=== PATIENT | female | born 1990 | race Caucasian/White ===

== ENCOUNTER 2020-09-07 08:34 | Emergency (ER) | payer MEDICAID, SELFPAY ==
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
[2020-09-07 08:39] VITALS: BP 114/72; PULSE 80; RESP 14; TEMP 36.6; O2SAT 100
== END 2020-09-07 09:29 | disposition home or self-care (01) ==
LOC: ER 09:40
PROVIDERS: Emergency Provider Physician Assistant; PCP Nurse Practitioner Family
DX: S63.591A Other specified sprain of right wrist, initial encounter (principal); S93.491A Sprain of other ligament of right ankle, initial encounter; S43.492A Other sprain of left shoulder joint, initial encounter; V89.2XXA Person injured in unspecified motor-vehicle accident, traffic, initial encounter
CPT/HCPCS: 99282

== ENCOUNTER 2023-08-31 09:14 | Emergency (ER) | payer MEDICAID, SELFPAY ==
[2023-08-31 09:17] VITALS: BP 129/85; PULSE 62; RESP 14; TEMP 36.8; O2SAT 98
--- NOTE | 2023-08-31 09:28 | W.ED.GENAD ---
Discharge Plan Disposition Patient Disposition: Home Condition: Stable Discharge Details Clinical Impression: Abscess of axilla, left Primary Care Provider: Jerica Lomax ED Provider: Emily Rios Home Meds and New Rx's Prescriptions: New cephalexin 500 mg tablet 500 mg PO BID 7 Days Qty: 14 0RF Continued methylphenidate HCl 20 mg tablet 20 mg PO DAILY Patient Comments: TAKE 1 TABLET BY MOUTH THREE TIMES DAILY DIRECTED lamotrigine 100 mg tablet 100 mg PO DAILY Patient Comments: TAKE 1 TABLET BY MOUTH DAILY quetiapine 50 mg tablet 50 mg PO QHS Patient Comments: TAKE 1 TABLET BY MOUTH EVERY NIGHT AT BEDTIME Discharge Instructions Instructions: Abscess (ED) Additional Instructions: Take the antibiotics twice daily with yogurt or probiotic as directed. Make sure you take all the antibiotics. Do not leave the packing in longer than 3 days. Follow up with primary care provider in 3-5 days. Return to ED sooner if any worsening or concerns. Please take Tylenol or Ibuprofen with food every 4-6 hours as needed for pain and swelling. Continue with warm compresses, no soaking. Keep clean and dry when bathing. Referrals: Danae Garrison DO [OSTEOPATHIC DOCTOR] - 1 week HPI General Mode of arrival: ambulatory. Date/Time Provider Initiated Documentation: 08/31/23 09:17. Limitations to Documentation: no limitations. Information obtained by: patient, RN notes reviewed and old records reviewed. HPI Narrative: Patient has a approximately 3cm x3cm abscess to left axillae. She has been applying warm compresses. Does have a history of Hidraddenitis Adenitis. Has never had a I& D or seen a surgeon. Denies any fever, chills or any other associated symptoms. Related Data Home Medications Medication Instructions Recorded Confirmed methylphenidate HCl 20 mg tablet 20 mg PO DAILY 09/07/20 08/31/23 cephalexin 500 mg tablet 500 mg PO BID 7 days #14 tabs 08/31/23 lamotrigine 100 mg tablet 100 mg PO DAILY 08/31/23 08/31/23 quetiapine 50 mg tablet 50 mg PO QHS 08/31/23 08/31/23 Previous Rx's Medication Instructions Recorded cephalexin 500 mg tablet 500 mg PO BID 7 days #14 tabs 08/31/23 Allergies Allergy/AdvReac Type Severity Reaction Status Date / Time clindamycin Allergy Severe Other (See Unverified 08/31/23 09:22 Comment) General Stated Complaint: Cellulitis ISAAC: 4 Review of Systems All systems reviewed & are unremarkable except as noted in HPI and below Integumentary/Breasts Skin/Breast: Reports erythema, Reports skin pain and Reports skin swelling Exam Narrative Exam Narrative: Constitutional: Alert and oriented x3. Appears stated age. Normal body habitus. Head: Normocephalic, no trauma. Chest: RRR, Normal S1, S2, distal pulses intact. Resp: Lungs clear to auscultation bilaterally, no wheezes, rales, or rhonchi. Abdomen: Soft, non-distended, Normoactive bowel sounds all 4 quads. Musculoskeletal: Normal gait, 5/5 strength to all four extremities. Skin: No suspicious rashes or lesions. Capillary refill less than 2 sec. see diagram below. Hematologic/Lymphatic: No ecchymosis, no lymphadenopathy. Chest Chest/axillae images: 1. Approximately 3cmx 3cm red abscess noted. Course Vital Signs Vital signs: Vital Signs Temperature 36.8 C 08/31/23 09:17 Pulse 62 08/31/23 09:17 Respiratory Rate 14 08/31/23 09:17 Blood Pressure 129/85 08/31/23 09:17 Pulse Oximetry 98 08/31/23 09:17 Temperature 36.8 C 08/31/23 09:17 Temperature Source Skin 08/31/23 09:17 Pulse 62 08/31/23 09:17 Respiratory Rate 14 08/31/23 09:17 Blood Pressure 129/85 08/31/23 09:17 Blood Pressure Position Sitting 08/31/23 09:17 Pulse Oximetry 98 08/31/23 09:17 Oxygen Delivery Method Room Air 08/31/23 09:17 Oxygen Flow Rate 0 08/31/23 09:17 Pain Level 3 08/31/23 09:17 Procedures Abscess I/D Site: Upper Extremity (Left axillae) Side (if applicable): Left Sedation/analgesia: None Local Anesthetic: Lidocaine 1% and With Epi Amount of anesthesia used (mL): 2 Technique: Incised with #11 Blade Amount of fluid expressed (mL): 5 Irrigation: No Packing used?: Iodoform Complications: Other (None) Medical Decision Making 33 year old female Patient has a approximately 3cm x3cm abscess to left axillae. She has been applying warm compresses. Does have a history of Hidraddenitis Adenitis. Has never had a I& D or seen a surgeon. Denies any fever, chills or any other associated symptoms. See procedure note. Area incised with 11 blade, small amount of purulent drainage expressed. Small amount of packing placed to the area. Discussed home care will give patient antibiotics and follow-up care. This text was generated using Picwingation system, please disregard any oddities of phrase or misspellings. Quality:SDOH Health Related Social Needs: No Data to Display [facility] All Active Problems (Updated 08/31/23 @ 10:44 by Emily Rios NP) Abscess of axilla, left (Acute) Left wrist sprain (Acute) Right ankle sprain (Acute) Sprain of left shoulder (Acute) Medical History Narcotic abuse in remission Surgical History History of bilateral tubal ligation Social History Smoking/Tobacco Use Status: Current every day Tobacco Type: cigarettes Smoking risk assessment performed?: Yes Alcohol Intake: never Drug use: Never Substance use type: does not use Do you feel safe at home: Yes Do you feel safe in your relationship?: Yes
[2023-08-31] MEDS: Lidocaine/Epinephri/Tetracaine Topical Gel 3 ML TP (09:40)
[2023-08-31] MEDS: Cephalexin 500 MG CAP PO (09:40)
[2023-08-31 09:45] VITALS: BP 129/85; PULSE 62; RESP 14; TEMP 36.8; O2SAT 98
== END 2023-08-31 10:59 | disposition home or self-care (01) ==
PROVIDERS: Emergency Provider Registered Nurse Emergency; PCP Nurse Practitioner Family
DX: L02.412 Cutaneous abscess of left axilla
CPT/HCPCS: 10060; 99282; 99283

== ENCOUNTER 2023-12-30 08:03 | Emergency (ER) | payer MEDICAID, SELFPAY ==
[2023-12-30 08:06] VITALS: BP 101/77; PULSE 76; RESP 18; TEMP 36.4; O2SAT 98
--- NOTE | 2023-12-30 08:18 | W.ED.GENAD ---
Discharge Plan Disposition Patient Disposition: Home Condition: Stable Discharge Details Clinical Impression: Hidradenitis suppurativa of multiple sites Primary Care Provider: Jerica Lomax ED Provider: Emily Rios Home Meds and New Rx's Prescriptions: New doxycycline hyclate 100 mg capsule 100 mg PO BID 10 Days Qty: 20 0RF Rx Instructions: Take one tablet by mouth twice daily mupirocin 2 % ointment 1 applic topical TID 7 Days Qty: 15 0RF Rx Instructions: Apply to affected area up to 3 times daily as directed Continued methylphenidate HCl 20 mg tablet 20 mg PO DAILY Patient Comments: TAKE 1 TABLET BY MOUTH THREE TIMES DAILY DIRECTED lamotrigine 100 mg tablet 100 mg PO DAILY Patient Comments: TAKE 1 TABLET BY MOUTH DAILY quetiapine 50 mg tablet 50 mg PO QHS Patient Comments: TAKE 1 TABLET BY MOUTH EVERY NIGHT AT BEDTIME lamotrigine 25 mg tablet 25 mg PO DAILY Patient Comments: TAKE ONE TABLET BY MOUTH EVERY DAY, TAKE WITH 100MG TABLET EACH EVENING quetiapine 25 mg tablet 25 mg PO DAILY Patient Comments: TAKE ONE TABLET BY MOUTH EVERY NIGHT AT BEDTIME , TAKE WITH 50MG TABLET AT NIGHT Discharge Instructions Instructions: Hidradenitis suppurativa Additional Instructions: Please take the antibiotics as directed. Take the antibiotics with yogurt or a probiotic. Apply topical ointment up to 3 times daily as needed. Apply warm compresses. Please follow up with general surgery for further treatment and options to discuss the Hidradenitis. Follow up with primary care provider in 3-5 days. Return to ED sooner if any worsening or concerns. Referrals: Jerica Lomax, YARA [Primary Care Provider] - Danae Garrison DO [OSTEOPATHIC DOCTOR] - 2 weeks Discharge Data Discharge Date/Time-TO BE ENTERED AT DEPARTURE: 12/30/23 08:35 HPI General Mode of arrival: ambulatory. Date/Time Provider Initiated Documentation: 12/30/23 08:09. Limitations to Documentation: no limitations. Information obtained by: patient, RN notes reviewed and old records reviewed. HPI Narrative: 33-year-old female with past medical history of hidradenitis presents to the ER with a chief complaint of multiple cysts to multiple areas over the last few days including left inner thigh, right upper back, left buttock and small stye to her right lower eyelid. She reports that she gets this frequently and as needed I&D's and antibiotics in the past. No area of fluctuance noticed there are multiple areas that are red and raised with induration. She denies any fever chills body aches or any other associated symptoms. Related Data Home Medications ?Medication ?Instructions ?Recorded ?Confirmed methylphenidate HCl 20 mg tablet 20 mg PO DAILY 09/07/20 12/30/23 lamotrigine 100 mg tablet 100 mg PO DAILY 08/31/23 12/30/23 quetiapine 50 mg tablet 50 mg PO QHS 08/31/23 12/30/23 doxycycline hyclate 100 mg capsule 100 mg PO BID Hidradenitis 10 days 12/30/23 #20 caps lamotrigine 25 mg tablet 25 mg PO DAILY 12/30/23 12/30/23 mupirocin 2 % topical ointment 1 applic topical TID 7 days #15 12/30/23 grams quetiapine 25 mg tablet 25 mg PO DAILY 12/30/23 12/30/23 Previous Rx's ?Medication ?Instructions ?Recorded doxycycline hyclate 100 mg capsule 100 mg PO BID Hidradenitis 10 days 12/30/23 #20 caps mupirocin 2 % topical ointment 1 applic topical TID 7 days #15 12/30/23 grams Allergies Allergy/AdvReac Type Severity Reaction Status Date / Time clindamycin Allergy Severe Other (See Unverified 12/30/23 08:07 Comment) gabapentin Allergy Swelling/Ed Verified 12/30/23 08:07 shoaib General Stated Complaint: Cellulitis ISAAC: 4 Review of Systems All systems reviewed & are unremarkable except as noted in HPI and below Integumentary/Breasts Skin/Breast: Reports as per HPI, Reports skin pain, Reports skin swelling and Reports sores Exam Narrative Exam Narrative: Constitutional: Alert and oriented x3. Appears stated age. Normal body habitus. Head: Normocephalic, no trauma. Chest: RRR, Normal S1, S2, distal pulses intact. Resp: Lungs clear to auscultation bilaterally, no wheezes, rales, or rhonchi. Abdomen: Soft, non-distended, Normoactive bowel sounds all 4 quads. Musculoskeletal: Normal gait, Moves all 4 extremities without difficulty. Skin:Multiple leasions, and small abscesses without fluctuance. Capillary refill less than 2 sec. Neurologic: Cranial nerves II-XII intact. Alert and oriented x 3. Motor: No deficits noted. Sensory: Intact bilaterally all 4 extremities. Hematologic/Lymphatic: No ecchymosis, no lymphadenopathy. Course Vital Signs Vital signs: Vital Signs Temperature 36.4 C 12/30/23 08:06 Pulse 76 12/30/23 08:06 Respiratory Rate 18 12/30/23 08:06 Blood Pressure 101/77 12/30/23 08:06 Pulse Oximetry 98 12/30/23 08:06 Temperature 36.4 C 12/30/23 08:06 Temperature Source Skin 12/30/23 08:06 Pulse 76 12/30/23 08:06 Respiratory Rate 18 12/30/23 08:06 Respiratory Effort Normal, Non-Labored 12/30/23 08:11 Blood Pressure 101/77 12/30/23 08:06 Blood Pressure Position Sitting 12/30/23 08:06 Pulse Oximetry 98 12/30/23 08:06 Oxygen Delivery Method Room Air 12/30/23 08:06 Oxygen Flow Rate 0 12/30/23 08:06 Pain Level 10 12/30/23 08:06 Medical Decision Making 33-year-old female with past medical history of hidradenitis presents to the ER with a chief complaint of multiple cysts to multiple areas over the last few days including left inner thigh, right upper back, left buttock and small stye to her right lower eyelid. She reports that she gets this frequently and as needed I&D's and antibiotics in the past. No area of fluctuance noticed there are multiple areas that are red and raised with induration. She denies any fever chills body aches or any other associated symptoms. At this time no areas appear ready for I&D will refer her to general surgery for follow-up given doxycycline and mupirocin cream. This text was generated using [employer] dictation system, please disregard any oddities of phrase or misspellings. Medical Records Medical records reviewed: Yes I reviewed the patient's medical records. Quality:[facility] Health Related Social Needs: No Data to Display PFSH All Active Problems (Updated 12/30/23 @ 08:23 by Emily Rios NP) Hidradenitis suppurativa of multiple sites (Acute) Left wrist sprain (Acute) Right ankle sprain (Acute) Sprain of left shoulder (Acute) Medical History Narcotic abuse in remission Surgical History History of bilateral tubal ligation Social History Smoking/Tobacco Use Status: Current every day Tobacco Type: cigarettes Smoking risk assessment performed?: Yes Alcohol Intake: never Drug use: Never Substance use type: does not use Do you feel safe at home: Yes Do you feel safe in your relationship?: Yes
[2023-12-30] MEDS: Doxycycline Hyclate 100 MG CAP PO (08:23)
== END 2023-12-30 08:35 | disposition home or self-care (01) ==
PROVIDERS: Emergency Provider Registered Nurse Emergency; PCP Nurse Practitioner Family
DX: L73.2 Hidradenitis suppurativa (principal)
CPT/HCPCS: 99283; 99282

== ENCOUNTER 2024-02-07 10:10 | Emergency (ER) | payer MEDICAID, SELFPAY ==
[2024-02-07 10:09] VITALS: BP 121/63; PULSE 89; RESP 14; O2SAT 99
--- NOTE | 2024-02-07 10:15 | DI.RAD_ITS ---
Exam(s) XR FOOT RT COMPLETE EXAM: XR FOOT RT COMPLETE CLINICAL HISTORY: stepped on glass R sole last night. TECHNIQUE: 2D digital imaging was performed. Three views. COMPARISON: No exams were available for comparison FINDINGS: BONES: No acute fracture is present. No bony destructive lesion is seen. Accessory. JOINTS: No dislocation present. SOFT TISSUE: No foreign body. IMPRESSION: No evidence of foreign body. DATA REPOSITORY: RADIATION DOSE DELIVERED:
--- NOTE | 2024-02-07 10:18 | ED.GENADUL_ITS ---
Discharge Plan Disposition Patient Disposition: Home Condition: Stable Discharge Details Clinical Impression: Puncture wound of right foot Primary Care Provider: Jerica Lomax ED Provider: Rizwan Phan Home Meds and New Rx's Prescriptions: New cephalexin 500 mg capsule 500 mg PO QID 5 Days Qty: 20 0RF Continued methylphenidate HCl 20 mg tablet 20 mg PO DAILY Patient Comments: TAKE 1 TABLET BY MOUTH THREE TIMES DAILY DIRECTED lamotrigine 100 mg tablet 100 mg PO DAILY Patient Comments: TAKE 1 TABLET BY MOUTH DAILY quetiapine 50 mg tablet 50 mg PO QHS Patient Comments: TAKE 1 TABLET BY MOUTH EVERY NIGHT AT BEDTIME lamotrigine 25 mg tablet 25 mg PO DAILY Patient Comments: TAKE ONE TABLET BY MOUTH EVERY DAY, TAKE WITH 100MG TABLET EACH EVENING quetiapine 25 mg tablet 25 mg PO DAILY Patient Comments: TAKE ONE TABLET BY MOUTH EVERY NIGHT AT BEDTIME , TAKE WITH 50MG TABLET AT NIGHT methadone [Methadose] 10 mg/mL concentrate 170 mg PO DAILY Discharge Instructions Instructions: Cephalexin, Mupirocin, Wound Care ED Additional Instructions: You were seen in the emergency department for the superficial puncture wound of your right foot on some glass last night, there is not a suturable wound present, we did soak the wound in dilute Betadine and saline for 30 minutes and aggressively cleaned the area and applied a topical mupirocin bandage to the area, you need to apply this antibiotic 2 times per day, ideally please change your dressings 2 times per day. Please use therapeutic dosing of Tylenol (acetamenophen) & Advil (ibuprofen) in an alternating fashion as follows: Take 1000mg of Tylenol every 6 hours without missing doses- that is 4 times per day. [place] in between the Tylenol dosings, take 400-600mg of Advil also on a 6 hour schedule, that is also 4 times per day. The daily maximum dosing of Tylenol is 4000mg, and the daily maximum dosing of Advil is 2400mg. This is safe to do for weeks. Please note that some common cold medications & prescription pain medications may contain acetamenophen and you need to read OTC drug labels and factor that in to maximum daily dosings. Please take the oral antibiotic cephalexin 4 times per day, we sent you home with 2 tablets to get you through the rest of today, continue the prescription sent to [facility] in [place] tomorrow morning. You may have nicked a superficial nerve that is causing your mild numbness but you have some movement of your foot, please follow-up with orthopedics if this is not improving, please return to the emergency department at once for worsening mobility status, red streaking up the leg, purulent drainage from the wound, you need to keep this wound very clean. Referrals: [facility] [Provider Group] Jerica Lomax NP [Primary Care Provider] - Discharge Data Discharge Date/Time-TO BE ENTERED AT DEPARTURE: 02/07/24 12:11 HPI General Date/Time Provider Initiated Documentation: 02/07/24 10:17 . HPI Narrative: 33 year-old female presents to ED today by EMS with her three children with a chief complaint of R foot laceration on sole of foot- stepped on broken glass while doing the dishes last night, states it bled all night. Quality described as painful to walk on-states having some numbness and difficulty moving her foot, no radiation to inability to ambulate, active bleeding, foreign body sensation. Severity is described as moderate. Palliating factors include simple bandage applied by EMS. Provoking factors include nothing specific. Events leading up to the incident/Associated Symptoms: Patient requesting methadone dose as she will not make it to [facility] clinic today. Patient not anticoagulated. Related Data Home Medications ?Medication ?Instructions ?Recorded ?Confirmed methylphenidate HCl 20 mg tablet 20 mg PO DAILY 09/07/20 02/07/24 lamotrigine 100 mg tablet 100 mg PO DAILY 08/31/23 02/07/24 quetiapine 50 mg tablet 50 mg PO QHS 08/31/23 02/07/24 lamotrigine 25 mg tablet 25 mg PO DAILY 12/30/23 02/07/24 quetiapine 25 mg tablet 25 mg PO DAILY 12/30/23 02/07/24 cephalexin 500 mg capsule 500 mg PO QID 5 days #20 caps 02/07/24 methadone 10 mg/mL oral 170 mg PO DAILY 02/07/24 02/07/24 concentrate (Methadose) Previous Rx's ?Medication ?Instructions ?Recorded cephalexin 500 mg capsule 500 mg PO QID 5 days #20 caps 02/07/24 Allergies Allergy/AdvReac Type Severity Reaction Status Date / Time clindamycin Allergy Severe Other (See Verified 02/07/24 10:13 Comment) gabapentin Allergy Swelling/Ed Verified 02/07/24 10:13 shoaib General Stated Complaint: Laceration ISAAC: 4 Review of Systems All systems reviewed & are unremarkable except as noted in HPI and below Exam Narrative Exam Narrative: GENERAL APPEARANCE: Well-nourished, non-toxic, awake and alert, atraumatic, no acute distress. SKIN: Warm, pink, dry, intact, without rashes/lesions/ulcerations. HEAD: Normocephalic, atraumatic, normal hair distribution for gender/age. EYES: Normal conjunctiva, no exudates on lids/lashes. ENT: Nares patent, no circumoral cyanosis, no facial swelling NECK: Supple, trachea midline, painless cervical ROM. LUNGS/CHEST: Lungs CTA bilaterally, non-labored respirations, normal A/P diameter, symmetrical expansion, no chest wall deformity HEART (CV/PV): Regular rate and rhythm without murmur, no peripheral edema, no JVD. ABDOMEN: Soft, non-distended, no guarding. MSK: Normal ROM, no swelling/deformity to bilateral UEs or LEs, moving all extremities without weakness, no cyanosis, spine midline without tenderness, normal curvature. R FOOT: 0.75 cm laceration/puncture wound in the mid sole of the right foot, intermittently participatory in dorsi/plantarflexion, states numbness to distal foot but brisk capillary refill present in all toes, right dorsalis pedis pulse 2+, able to ambulate without foot drop, consider possible superficial nerve injury from laceration but do not suspect tendon rupture plantar fascia at this time NEURO: Mental Status AAOx4 - alert to person, place, time, events No facial droop, no forehead involvement. Motor: No focal weakness - strength 5/5 in bilateral UEs and LEs, proximal and distal, symmetric. Sensory: sensation intact to light touch globally. Gait antalgic. PSYCH: euthymic, cooperative, pleasant, appropriate speech Course Vital Signs Vital signs: Vital Signs Pulse 89 02/07/24 10:09 Respiratory Rate 14 02/07/24 10:09 Blood Pressure 121/63 02/07/24 10:09 Pulse Oximetry 99 02/07/24 10:09 Pulse 89 02/07/24 10:09 Respiratory Rate 14 02/07/24 10:09 Blood Pressure 121/63 02/07/24 10:09 Pulse Oximetry 99 02/07/24 10:09 Oxygen Delivery Method Room Air 02/07/24 10:09 Oxygen Flow Rate 0 02/07/24 10:09 Pain Level 0 02/07/24 10:09 Medical Decision Making This dictation utilizes [id number] dictation software and may contain unedited grammatical errors. 33 year-old female presents to ED today by EMS with her three children with a chief complaint of R foot laceration on sole of foot, R-foot dominant- stepped on broken glass while doing the dishes last night, states it bled all night. Quality described as painful to walk on-states having some numbness and difficulty moving her foot, no radiation to inability to ambulate, active bleeding, foreign body sensation. Severity is described as moderate. Palliating factors include simple bandage applied by EMS. Provoking factors include nothing specific. Events leading up to the incident/Associated Symptoms: Patient requesting methadone dose as she will not make it to [facility] clinic today. Patients' medical history: Narcotic abuse in remission, history of tubal ligation. Family and social history: Lives at home with 3 young children, denies illicit drug use or EtOH intake. Pertinent exam findings / vital signs include 0.75 cm laceration/puncture wound in the mid sole of the right foot, intermittently participatory in dorsi/plantarflexion, states numbness to distal foot but brisk capillary refill present in all toes, right dorsalis pedis pulse 2+, able to ambulate without foot drop, consider possible superficial nerve injury from laceration but do not suspect tendon rupture plantar fascia at this time, patient's feet are incr edibly dirty, caked in black dirt as if there have been no issues present for quite some time. Differential / pathologies of concern include puncture wound/laceration, retained foreign body less likely, not arterial laceration, possible superficial nerve injury, possible tendon injury though unlikely with superficiality of patient's laceration. Diagnostic studies of: -XR R foot-no acute fracture or retained foreign body seen. Interventions of: -Extensive cleaning after 30 minutes soak in saline and dilute Betadine, no foreign body visualized, no active bleeding, simple bandages, not in window for suturing or necessary, updated tetanus, started on Keflex ED Course/Assessment/Plan: 33-year-old female presents with the right puncture wound from broken glass last night in her home, her feet appear incredibly dirty and underwent extensive cleaning, there is no visualized glass and none seen on x-ray as well, patient endorses some superficial numbness to the dorsal toes of the right foot I do not suspect this is related to her laceration, she is able to pull against resistance with her big toe and dorsiflexion, do not suspect plantar fascia rupture or disruption, I started her on Keflex due to the contaminated nature of the wound after extensive cleaning and she was bandaged with simple bandages, provided crutches to go after she requested them, I stressed strict return crite jona for any signs of infection, follow-up with orthopedics for any persistent range of motion or sensory deficits from this puncture. Findings not consistent with neurovascular compromise, fracture, retained foreign body. Disposition of puncture wound of right foot. Patient verbalized understanding of the plan and return to ED criteria and engaged in shared decision making. Medical Records Medical records reviewed: Yes I reviewed the patient's medical records. Imaging Data Radiologic Study: Attestation: I personally reviewed and interpreted this imaging study as follows: Imaging: X-Ray Radiologist's impression: EXAM: XR FOOT RT COMPLETE CLINICAL HISTORY: stepped on glass R sole last night. TECHNIQUE: 2D digital imaging was performed. Three views. COMPARISON: No exams were available for comparison FINDINGS: BONES: No acute fracture is present. No bony destructive lesion is seen. Accessory. JOINTS: No dislocation present. SOFT TISSUE: No foreign body. IMPRESSION: No evidence of foreign body. Quality:SDOH Health Related Social Needs: No Data to Display PFSH All Active Problems (Updated 02/07/24 @ 11:27 by ERASTO Faria) Puncture wound of right foot (Acute) Left wrist sprain (Acute) Right ankle sprain (Acute) Sprain of left shoulder (Acute) Medical History Narcotic abuse in remission Surgical History History of bilateral tubal ligation Social History Smoking/Tobacco Use Status: Current every day Tobacco Type: cigarettes Smoking risk assessment performed?: Yes Alcohol Intake: never Drug use: Never Substance use type: does not use Housing: house Do you feel safe at home: Yes Do you feel safe in your relationship?: Yes
[2024-02-07] MEDS: Cephalexin 500 MG CAP PO ×2 (11:07→11:35)
[2024-02-07] MEDS: Povidone-Iodine Soln. 118 ML BTL (11:09)
[2024-02-07] MEDS: Cephalexin 500 MG CAP, 2 CAPS/BTL PO (11:35)
[2024-02-07] MEDS: Methadone Liquid 10 MG/ML 170 MG PO (11:47)
[2024-02-07] MEDS: Mupirocin 2% Oint. 22 GM TUBE TP (11:47)
--- NOTE | 2024-02-08 08:29 | NUR.NOTE ---
Nurse from [facility] (Angela ) called to see if patient had been dosed with methadone 02/04-02/06. Upon researching and talking to pharmacy, patient was dosed 170 mg 02/07/24, but was not dosed on the or . This information was relayed to Angela.
== END 2024-02-07 12:11 | disposition home or self-care (01) ==
PROVIDERS: Emergency Provider Physician Assistant; PCP Nurse Practitioner Family
DX: S91.331A Puncture wound without foreign body, right foot, initial encounter (principal); W25.XXXA Contact with sharp glass, initial encounter
CPT/HCPCS: 90471; 90715; 99283; 73630; 99284

== ENCOUNTER 2024-02-25 14:10 | Emergency (ER) | payer MEDICAID, SELFPAY ==
--- NOTE | 2024-02-25 14:15 | RT.EKG_ITS ---
APPROVED REPORT Exam: Resting ECG Reason for Exam: sob Patient Location: E HR:72 bpm ECG Measurements Heart Rate 72 AXIS OH 146 P 52 QRSd 94 QRS 74 QT 441 T 17 QTc 483 Conclusion Sinus rhythm...normal P axis, V-rate 60- 99
[2024-02-25 14:19] VITALS: BP 109/77; PULSE 76; RESP 16; TEMP 36.8; O2SAT 96
--- OUTSIDE RECORDS SUMMARY | 2024-02-25 14:25 | XMS_ITS | Continuity of Care Document ---
Author Organization [facility] Address [address] [place] [address] Care Team Providers Care Cloud Administrator Name Role Phone Kike Blanco Primary Care Physician Encounter [facility] Date(s): 02/04/24 - 02/04/[address] [address] Discharge Disposition: Home or Self Care Attending Physician: Beatriz Slade DNP Admitting Physician: Beatriz Slade DNP Referring Physician: Beatriz Slade DNP Allergies, Adverse Reactions, Alerts Substance Criticality Severity Reaction Reaction Severity Status INSECT VENOM Unable to assess criticality Unknown Anaphylactic reaction Active LATEX Unable to assess criticality Unknown Urticaria Active clindamycin Unable to assess criticality Unknown Anaphylactic reaction Active aspirin Unable to assess criticality Unknown Urticaria Active Assessment and Plan Future Appointments Future Scheduled Tests Laboratory* Urinalysis with Microscopic 07/15/23 * Urine Culture 07/15/23 Immunizations Given and Recorded Vaccine Date Status Refusal Reason tetanus/diphth/pertuss (Tdap) adult/adol 12/11/19 Recorded tetanus/diphth/pertuss (Tdap) adult/adol 03/24/15 Recorded tetanus/diphth/pertuss (Tdap) adult/adol 01/24/06 Recorded HPV, unspecified formulation 03/05/07 Recorded HPV, unspecified formulation 01/17/07 Recorded poliovirus vaccine, live, trivalent 01/14/96 Recor ded poliovirus vaccine, live, trivalent 11/07/92 Recor ded poliovirus vaccine, live, trivalent 01/23/91 Recor ded poliovirus vaccine, live, trivalent 90 Recor ded measles/mumps/rubella virus vaccine 01/14/96 Recor ded measles/mumps/rubella virus vaccine 12/17/91 Recor ded hepatitis B pediatric vaccine 07/20/93 Recorded hepatitis B pediatric vaccine 01/20/93 Recorded hepatitis B pediatric vaccine 12/13/92 Recorded haemophilus b conjugate (PRP-T) vaccine 12/17/91 R ecorded haemophilus b conjugate (PRP-T) vaccine 04/01/91 R ecorded haemophilus b conjugate (PRP-T) vaccine 01/23/91 R ecorded haemophilus b conjugate (PRP-T) vaccine 90 R ecorded Medications ibuprofen 800 mg =, Oral, TID, PRN as needed for pain, 0 Refill(s) Start Date: 09/27/23 Status: Ordered LaMICtal 100 mg oral tablet 100 mg = 1 tab, Oral, Daily, # 30 tab, 5 Refill(s), Pharmacy: [facility] #[id number], 160, cm,09/28/23 2:28:00 EDT, Height, 80.1, kg, 02/04/24 9:33:00 EDT, Weight Dosing Start Date: 02/04/24 Stop Date: 08/02/24 Status: Ordered LaMICtal 25 mg oral tablet 25 mg = 1 tab, Oral, Daily, Take with lamictal 100 mg each evening, # 30 tab, 5 Refill(s), Pharmacy: [facility] #[id number], 160, cm, 09/28/23 2:28:00 EDT, Height, 80.1, kg, 02/04/24 9:33:00 EDT, Weight Dosing Start Date: 02/04/24 Stop Date: 08/02/24 Status: Ordered QUEtiapine 25 mg oral tablet 25 mg = 1 tab, Oral, every night at bedtime, Take with quetiapine 50 mg nightly, # 30 tab, 3 Refill(s), Pharmacy: [facility] #[id number], 160, cm, 09/28/23 2:28:00 EDT, Height, 80.1, kg, 02/04/24 9:33:00 EDT, Weight Dosing Start Date: 02/04/24 Stop Date: 06/03/24 Status: Ordered QUEtiapine 50 mg oral tablet 50 mg = 1 tab, Oral, BID, # 60 tab, 3 Refill(s), Pharmacy: [facility][id number], 160, cm, 09/28/23 2:28:00 EDT, Height, 80.1, kg, 02/04/24 9:33:00 EDT, Weight Dosing Start Date: 02/04/24 Stop Date: 06/03/24 Status: Ordered Ritalin 10 mg oral tablet 10 mg = 1 tab, Oral, TID, Step 1, # 21 tab, 0 Refill(s), Pharmacy: [facility] #[id number], 160, cm, 09/28/23 2:28:00 EDT, Height, 80.1, kg, 02/04/24 9:33:00 EDT, Weight Dosing Start Date: 02/04/24 Stop Date: 02/11/24 Status: Ordered Ritalin 20 mg oral tablet 20 mg = 1 tab, Oral, TID, Step 2, # 63 tab, 0 Refill(s), Pharmacy: [facility] #[id number], 160, cm, 09/28/23 2:28:00 EDT, Height, 80.1, kg, 02/04/24 9:33:00 EDT, Weight Dosing Start Date: 02/04/24 Stop Date: 02/25/24 Status: Ordered Ritalin 20 mg oral tablet 20 mg = 1 tab, Oral, TID, Please fill 03/03/2024, # 84 tab, 0 Refill(s), Pharmacy: [facility] #[id number], 160, cm, 09/28/23 2:28:00 EDT, Height, 80.1, kg, 02/04/24 9:33:00 EDT, Weight Dosing Start Date: 02/04/24 Stop Date: 03/03/24 Status: Ordered Ritalin 20 mg oral tablet 20 mg = 1 tab, Oral, TID, Please fill 03/31/2024, # 84 tab, 0 Refill(s), Pharmacy: [facility] #[id number], 160, cm, 09/28/23 2:28:00 EDT, Height, 80.1, kg, 02/04/24 9:33:00 EDT, Weight Dosing Start Date: 02/04/24 Stop Date: 03/03/24 Status: Ordered Ritalin 20 mg oral tablet 20 mg = 1 tab, Oral, TID, # 84 tab, 0 Refill(s), Pharmacy: [facility] #[id number], 160.5, cm, 07/15/23 14:14:00 EST, Height, 82, kg, 07/15/23 14:21:00 EST, Weight Dosing Start Date: 09/24/23 Stop Date: 10/22/23 Status: Ordered Problem List Condition Confirmation Course Effective Dates Status Health St atus Informant Bipolar disorder, unspecified Confirmed Active Female stress incontinence Confirmed Active Encounter for medication management Confirmed Active Procedures Procedure Date Related Diagnosis Body Site Status delivery 1 Compl eted Ectopic Completed 1x2 Results Laboratory List Name Date Drug Screen Urine (Drug Screen Urine w/ Reflex) 02/04/24 Most recent to oldest [Reference Range]: 1 U Amph Scrn [Negative] Negative 1 (02/04/24 9:52 AM) U Benzodia Scrn [Negative] Negative (02/04/24 9:52 AM) U Cocaine Scrn [Negative] Negative (02/04/24 9:52 AM) U Katlyn Scrn [Negative] Negative (02/04/24 9:52 AM) U Opiate Scrn [Negative] Negative (02/04/24 9:52 AM) U Oxy Scrn [Negative] Negative (02/04/24 9:52 AM) U PCP Scrn [Negative] Negative (02/04/24 9:52 AM) U THC Scr [Negative] Negative (02/04/24 9:52 AM) U Methadone Scr [Negative] Negative (02/04/24 9:52 AM) U Buprenorph Scr [Negative] Negative (02/04/24 9:52 AM) U mAMP Scr [Negative] Negative (02/04/24 9:52 AM) U TCA Scr [Negative] Negative (02/04/24 9:52 AM) 1Interpretive Data: These are unconfirmed screening results, to be used only for medical (i.e. treatment) purposes. These screening results must not be used for non-medical purposes (e.g. employment or legal testing). New method started 11/23/10 Test Name Reference Range (Cut-off) THC Neg (50 ng/mL) PCP Neg (25 ng/mL) ADRIANNA Neg (150 ng/mL) MET Neg (500 ng/mL OPI Neg (100 ng/mL) AMP Neg (500 ng/mL BZO Neg (150 ng/mL) TCA Neg (300 ng/mL) MTD Neg (200 ng/mL) BAR Neg (200 ng/mL) OXY Neg (100 ng/mL) PPX Neg (300 ng/mL) BUP Neg (10 ng/mL) Social History Social History Type Response Tobacco Current everyday tob acco user Tobacco Use:. 1 PPweek per day. Sex Female Sex Representation Female (finding) Patient Care team information Care Team Personnel Name: Kike Blanco MD Position: Physician Member Role: Informed Provider Address: [address] Care Team Related Persons Name: KAUSHAL TAN Name: KATLYN TAN Name: RASTA CABALLERO Insurance Providers Guarantor name: VAISHALI TAN Health Plan Information #: 1 Payer: [employer] [place] [employer] Member Number: [id number] Policy Number: NA Health Plan Information #: 2 Payer: [employer] [place] [employer] Member Number: [id number] Policy Number: NA Health Plan Information #: 3 Payer: [employer] [place] [employer] Member Number: [id number] Policy Number: NA
--- OUTSIDE RECORDS SUMMARY | 2024-02-25 14:25 | XMS_ITS | Encounter Summary ---
Author Organization [facility] Address [address] [place] [address] Care Team Providers Care Director Search Name Role Phone Unknown, Provider Primary Care Provider + [phone] Encounter Details Date Type Department Care Team (Late st Contact Info) Description 06/07/2023 Lab Requisition [facility] Pathology & Laboratory Medicine - [address] [id number] Outr Resulting Lab, Provider Social History Tobacco Use Types Packs/Day Years Used Date Smoking Tobacco: Never Assessed Interpersonal Safety Answer Date Record ed Physically Hurt Never 12/30/2019 Verbally Threaten Not on file 12/30/2019 Sex and Gender Information Value Date Recorded Sex Assigned at Not on file Gender Identity Not on file Sexual Orientation Not on file documented as of this encounter Plan of Treatment Not on file documented as of this encounter Procedures Procedure Name Priority Date/Time Associated Diagnosis Comments HCV RNA DETECT QUANT Routine 06/07/2023 11:03 EST HIV 1/2 ANTIGEN AND ANTIBODY, 4TH GENERATION Routine 06/07/2023 11:03 EST documented in this encounter Results * HCV RNA DETECT QUANT (06/07/2023 11:03 EST) HCV RNA Qualitative Undetected Undetected 06/10/2023 11:32 EST [facility] Blood VENOUS BLOOD / Unknown 06/07/2023 11:03 EST 06/07/2023 22:09 EST Narrative [facility] - 06/10/2023 11:32 EST The quantification range of this assay is 15 IU/mL to 100,000,000 IU/mL. Testing was performed using the Roxi HCV test ([employer] with the roxi [id number] System. Provider Outr Resulting Lab CHEMISTRY & BLOOD GAS ORDERABLES Performing Organization Address [facility] Co de Phone Number [facility] [address] [place] [address] * HIV 1/2 ANTIGEN AND ANTIBODY, 4TH GENERATION (06/07/2023 11:03 EST) Pathologist [facility] HIV 1 and 2 Antibody/p24 Antigen, 4th Generation Negative Negative 06/08/2023 9:22 EST [facility] Comment:If acute HIV-1 infec tion is suspected in a high risk patient, submit plasma specimen for HIV-1 RNA quantitation test. Blood VENOUS BLOOD / Unknown 06/07/2023 11:03 EST 06/07/2023 22:20 EST Narrative [facility] - 06/08/2023 9:22 EST Fourth Generation assay performed on the Siemens Centaur XPT. Provider Outr Resulting Lab IMMUNOLOGY A ND SEROLOGY ORDERABLES Performing Organization Address [facility] Co de Phone Number [facility] [address] [place] [address] documented in this encounter Visit Diagnoses Not on filedocumented in this encounter Care Teams Director Search Relationship Specialty Start Date End Date Unknown, Provider, PCP - General 07/28/15 documented as of this encounter
--- OUTSIDE RECORDS SUMMARY | 2024-02-25 14:25 | XMS_ITS | Continuity of Care Document ---
Author Organization [facility] Address [address] [place] [address] Care Team Providers Care Deputy Sheriff/Investigator Name Role Phone Kike Blanco Primary Care Physician [phone] Encounter [facility] Date(s): 09/27/23 - 09/29/23 [facility] [address] [place] [address] Encounter Diagnosis Bipolar disorder, unspecified(Discharge Diagnosis) - 09/27/23 Substance use(Discharge Diagnosis) - 09/27/23 Suicidal thoughts(Discharge Diagnosis) - 09/27/23 Transaminitis(Discharge Diagnosis) - 09/27/23 Substance abuse(Discharge Diagnosis) - 09/29/23 Discharge Disposition: Discharge/Transfer - Other Type of Inst Attending Physician: Anthony Hummel MD Admitting Physician: Anthony Hummel MD Allergies, Adverse Reactions, Alerts Substance Reaction Severity Status INSECT VENOM Anaphylactic reaction Unknown Active LATEX Urticaria Unknown Active clindamycin Anaphylactic reaction Unknown Active aspirin Urticaria Unknown Active Assessment and Plan Extracted from: Title:ED Provider Note Author:Louann Ray Ma, MD Date:09/29/23 1.??Substance use??F19.90 2.??Suicidal thoughts??R45.851 3.??Transaminitis??R74.01 Bipolar disorder, unspecified??F31.9 Orders: Tylenol, 650 mg = 2 tab, Oral, Tab, every 6 hr, PRN pain, First Dose: 09/29/23 9:10:00 EDT, STAT Future Appointments Future Scheduled Tests Laboratory* Urinalysis [...] 1 tab, Oral, Daily, # 30 tab, 2 Refill(s), Pharmacy: [facility] #[id number], 160.5, cm, 07/15/23 14:14:00 EST, Height, 82, kg, 07/15/23 14:21:00 EST, Weight Dosing Start Date: 09/24/23 Stop Date: 12/23/23 Status: Ordered LaMICtal 25 mg oral tablet 25 mg = 1 tab, Oral, Daily, Take with lamictal 100 mg each evening, # 30 tab, 2 Refill(s), Pharmacy: [facility] #[id number], 160.5, cm, 07/15/23 14:14:00 EST, Height, 82, kg, 07/15/23 14:21:00 EST, Weight Dosing Start Date: 09/24/23 Stop Date: 12/23/23 Status: Ordered methadone 170 mg, Oral, Tab-Dispers, Once, First Dose: 09/29/23 8:09:00 AM CDT, Stop Date: 09/29/23 8:27:19 AM CDT, Physician Stop, STAT Start Date: 09/29/23 Stop Date: 09/29/23 Status: Completed methadone 170 mg =, Oral, Daily, 0 Refill(s) Start Date: 11/23/22 Status: Ordered QUEtiapine 25 mg oral tablet 25 mg = 1 tab, Oral, every night at bedtime, Take with quetiapine 50 mg nightly, # 30 tab, 2 Refill(s), Pharmacy: [facility] #[id number], 160.5, cm, 07/15/23 14:14:00 EST, Height, 82, kg, 07/15/23 14:21:00 EST, Weight Dosing Start Date: 09/24/23 Stop Date: 12/23/23 Status: Ordered QUEtiapine 50 mg oral tablet 50 mg = 1 tab, Oral, every night at bedtime, # 30 tab, 2 Refill(s), Pharmacy: [facility] #[id number], 160.5, cm, 07/15/23 14:14:00 EST, Height, 82, kg, 07/15/23 14:21:00 EST, Weight Dosing Start Date: 09/24/23 Stop Date: 12/23/23 Status: Ordered Ritalin 20 mg oral tablet 20 mg = 1 tab, Oral, TID, # 84 tab, 0 Refill(s), Pharmacy: [facility] #[id number], 160.5, cm, 07/15/23 14:14:00 EST, Height, 82, [...] Completed 1x2 Results Laboratory List Name Date CBC w/ Diff 09/27/23 Comprehensive Metabolic Panel 09/27/23 Acetaminophen Level 09/27/23 Alcohol Level 09/27/23 Salicylate Level 09/27/23 Automated Diff 09/27/23 Drug Screen Urine 09/27/23 Test Urine Qual 09/27/23 Urinalysis Microscopic 09/27/23 Urinalysis with Micro if Indicated and C ulture if Indicated 09/27/23 Most recent to oldest [Reference Range]: 1 WBC [5.0-10.0 x10^3/mcL] 14.9 x10^3/mcL *HI* (09/27/23 8:08 PM) RBC [4.1-5.3 x10^6/mcL] 4.9 x10^6/mcL (09/27/23 8:08 PM) Neutro Auto [40.0-75.0 %] 72.5 % (09/27/23 8:08 PM) Lymph Auto [20.0-50.0 %] 17.6 % *LOW* (09/27/23 8:08 PM) Kent Auto [2.0-15.0 %] 8.7 % (09/27/23 8:08 PM) Basophil Auto [0.0-1.0 %] 0.2 % (09/27/23 8:08 PM) BUN [7-18 mg/dL] 18 mg/dL (09/27/23 8:08 PM) U Amph Scrn [Negative] Negative 1 (09/27/23 8:04 PM) UA Color Dark Yellow (09/27/23 8:04 PM) UA WBC [0-3] 0-3 (09/27/23 8:04 PM) Glucose Level [74-106 mg/dL] 90 mg/dL (09/27/23 8:08 PM) Potassium Level [3.5-5.1 mmol/L] 4.2 mmo l/L (09/27/23 8:08 PM) U Benzodia Scrn [Negative] Negative (09/27/23 8:04 PM) MCV [80.0-96.0 fL] 86.2 fL (09/27/23 8:08 PM) UA Urobilinogen Positive *ABN* (09/27/23 8:04 PM) UA Hyal Cast Moderate /HPF (09/27/23 8:04 PM) UA Bili [Negative] 2+ *ABN* (09/27/23 8:04 PM) UA Ketones Trace *ABN* (09/27/23 8:04 PM) AST [15-37 unit/L] 89 unit/L *HI* (09/27/23 8:08 PM) ALT [14-59 unit/L] 67 unit/L *HI* (09/27/23 8:08 PM) MCHC [31.0-35.0 g/dL] 35.2 g/dL *HI* (09/27/23 8:08 PM) Sodium Level [136-145 mmol/L] 136 mmol/L (09/27/23 8:08 PM) UA RBC [0-2] 3-5 (09/27/23 8:04 PM) UA Leuk Est Negative (09/27/23 8:04 PM) UA Gran Cast Moderate /HPF (09/27/23 8:04 PM) UA Nitrite Negative (09/27/23 8:04 PM) UA Glucose [Negative] Negative (09/27/23 8:04 PM) Hct [37.0-47.0 %] 42.6 % (09/27/23 8:08 PM) UA Bacteria Rare /HPF (09/27/23 8:04 PM) U Cocaine Scrn [Negative] Positive *ABN* (09/27/23 8:04 PM) Calcium Level [8.5-10.1 mg/dL] 9.5 mg/dL (09/27/23 8:08 PM) Albumin Level [3.4-5.0 g/dL] 4.5 g/dL (09/27/23 8:08 PM) Protein Total [6.4-8.2 g/dL] 8.1 g/dL (09/27/23 8:08 PM) UA Protein 2+ *ABN* (09/27/23 8:04 PM) MCH [26.0-32.0 pg] 30.4 pg (09/27/23 8:08 PM) Neutro Absolute 10.8 x10^3/mcL *NA* (09/27/23 8:08 PM) Bilirubin Total [0.2-1.0 mg/dL] 0.7 mg/d L (09/27/23 8:08 PM) Hgb [12.0-16.0 g/dL] 15.0 g/dL (09/27/23 8:08 PM) Alk Phos [46-146 unit/L] 140 unit/L (09/27/23 8:08 PM) UA Blood 1+ *ABN* (09/27/23 8:04 PM) Salicylate Level [2.8-20.0 mg/dL] 2.4 mg /dL *LOW* (09/27/23:07 PM) Ethanol Level [0-10 mg/dL] <5 mg/dL (09/27/23 8:07 PM) UA Mucous Moderate /HPF *ABN* (09/27/23 8:04 PM) UA Spec Grav >=1.030 *NA* (09/27/23 8: PM) Platelets [130-450 x10^3/mcL] 476 x10^3/ mcL *HI* (09/27/23 8:08 PM) CO2 [21-32 mmol/L] 26 mmol/L (09/27/23 8:08 PM) U Katlyn Scrn [Negative] Negative (09/27/23 8:04 PM) UA Squam Epithelial [None Seen] Moderate *ABN* (09/27/23 8:04 PM) UA pH 5.5 *NA* (09/27/23 8: PM) U Opiate Scrn [Negative] Negative (09/27/23 8:04 PM) eGFR Non-AA [>=60] 51 *LOW* (09/27/23 8:08 PM) eGFR AA [>=60] 51 *LOW* (09/27/23 8:08 PM) UA Appear Clear (09/27/23: PM) Acetaminophen Level [10.0-20.0 ug/mL] <0 .5 ug/mL *LOW* (09/27/23 8:07 PM) Chloride Level [98-107 mmol/L] 98 mmol/L (09/27/23 8:08 PM) U Oxy Scrn [Negative] Negative (09/27/23 8:04 PM) U PCP Scrn [Negative] Negative (09/27/23 8:04 PM) RDW-CV [11.5-14.5 %] 12.0 % (09/27/23 8:08 PM) U THC Scr [Negative] Negative (09/27/23 8:04 PM) U Methadone Scr [Negative] Positive *ABN* (09/27/23 8:04 PM) Imm Gran Auto [0.0-0.9 %] 0.3 % (09/27/23 8:08 PM) UA Culture Ind?. Not Indicated (09/27/23 8:04 PM) U Buprenorph Scr [Negative] Negative (09/27/23 8:04 PM) U mAMP Scr [Negative] Negative (09/27/23 8:04 PM) U TCA Scr [Negative] Negative (09/27/23 8:04 PM) UA Amorph Few /HPF (09/27/23 8:04 PM) Creatinine Level [0.55-1.02 mg/dL] 1.39 mg/dL *HI* (09/27/23 8:08 PM) Eos, Auto [1.0-6.0 %] 0.7 % *LOW* (09/27/23 8:08 PM) U hCG Ql Negative (09/27/23 8:04 PM) 1Interpretive Data: These are unconfirmed screening results, [...] Neg (300 ng/mL) BUP Neg (10 ng/mL) Vital Signs Most recent to oldest [Reference Range]: 1 2 3 Temperature Temporal Artery [36-38 Deg C] 36.6 Deg C (09/29/23 9:33 AM) 36.8 Deg C (09/28/23 9:06 PM) 36.7 Deg C (09/28/23 8:48 AM) Temperature Temporal Artery (DegF) [97.3-100 Deg F] 97.88 Deg F (09/29/23 9:33 AM) 98.06 Deg F (09/28/23 8:48 AM) Peripheral Pulse Rate [60-100 bpm] 93 bpm (09/29/23 9:33 AM) 91 bpm (09/28/23 9:06 PM) 93 bpm (09/28/23 8:48 AM) Respiratory Rate [12-24 br/min] 18 br/min (09/29/23 9:33 AM) 17 br/min (09/28/23 9:06 PM) Respiratory Rate [12.70738336269342975587-40.568657588 0 br/min] 16 br/min (09/29/23 9:27 AM) Blood Pressure [90-140/60-90 mmHg] 130/79mmHg (09/29/23 9:33 AM) 102/73mmHg (09/28/23 9:06 PM) 115/78mmHg (09/28/23 8:48 AM) Mean Arterial Pressure, Cuff [65-140 mmHg] 96 mmHg (09/29/23:33 AM) 83 mmHg (09/28/23 9:06 PM) 90 mmHg (09/28/23 8:48 AM) Weight 77.11 kg (09/27/23 7:37 PM) Weight Dosing 77.110 kg (09/27/23 7:37 PM) Height 160 cm (09/27/23 7:37 PM) Body Mass Index 30.12 kg/m2 (09/27/23 7:37 PM) Social History Social History Type Response Tobacco Current everyday tob acco user Tobacco Use:. 1 PPD every 3-4 days per day. Sex Female Hospital Discharge Instructions Patient Education 09/29/2023 18:15:52 Substance Use Disorder and Mental Illness Substance Use Disorder and Mental Illness Substance use disorder is a condition in which a person is dependent on a substance, such as drugs or alcohol. A mental illness is a condition that occurs when someone experiences changes in mood, behavior, or thinking. Sometimes, these two conditions can occur at the same time (co-occurring disorders) and may be diagnosed together (dual diagnosis). What is the relationship between substance use disorder and mental illness? Substance use disorder and mental illness can share symptoms and can have similar causes, such as exposure to stress or changes in brain chemicals. The risk for developing both of these conditions can be passed from parent to child (inherited). People with mental illnesses sometimes use drugs to try to relieve symptoms, and this can lead to substance use disorder. Substance use disorders occur more often in people who have depression, schizophrenia, anxiety, or personality disorders. Also, when some drugs are used regularly, they can cause people to have symptoms of mental illness. What are the signs or symptoms? Symptoms vary widely for substance use disorder and mental illness, especially because these conditions can be present at the same time. Signs of a substance use disorder ??? Failure to meet responsibilities at home, work, or school. ??? Using substances in risky situations, such as while driving or using machinery. ??? Taking serious risks to get drugs or alcohol. ??? Spending less time on activities or hobbies that used to be important. ??? Changes in personality or attitude for no reason, such as angry outbursts, symptoms of anxiety,or unusual giddiness. ??? Trying to hide the amount of drugs or alcohol used. ??? Increased substance use over time, or needing to use more of a substance to feel the same effects (developing a tolerance). ??? Physical symptoms may include: ??? Sudden weight loss or gain. ??? Sleeping too much or too little. ??? Uncontrolled trembling or shaking (tremors), slurred speech, or lack of coordination. ??? Continuing to use alcohol or a drug even though using it has led to bad outcomes or consequences, such as losing a job or ending a relationship. Signs and symptoms of mental illness ??? Withdrawing from friends and family, or sudden changes in social behaviors or hobbies. ??? Aggression toward people and animals. ??? Repeatedly breaking serious rules or breaking the law. ??? Persistent feelings of sadness, hopelessness, or thoughts of suicide. ??? Having persistent thoughts or urges that are unpleasant or feel out of control (involuntary). The person may feel the need to act on the urges in order to reduce anxiety. ??? False beliefs (delusions). ??? Seeing, hearing, tasting, smelling, or feeling things that are not real (hallucinations). ??? Other signs include: ??? Sleeping too much or too little. ??? Weight loss or weight gain. ??? Being easily distracted. ??? Extreme mood changes (mood swings). ??? Confused thinking or trouble concentrating. How is this diagnosed? Substance use disorder and mental illnesses can be difficult to diagnose at the same time because of how varied and complex the symptoms are. Because these conditions can interact, one condition may be missed. This is why it is important to be completely honest with your health care provider about substance use and your other symptoms. Diagnosing your condition may include: ??? A physical exam. ??? A review of your medical history and your symptoms. Your health care provider may refer you to a mental health professional for a psychiatric evaluation. This may include assessments of: ??? Your use of substances. ??? Your risk of suicide. ??? Your risk of aggressive behaviors. ??? Your lifestyle, environment, and social situations. ??? Your medical health. ??? Your mental health and behavioral history. How is this treated? It is best to treat substance use disorder and mental illness at the same time (integrated treatment approach). Treatment usually involves more than one of the following methods: ??? Detox. This refers to stopping substance abuse while being monitored by trained medical staff. This is usually the first step in treatment. Detox can last for up to 7 days. ??? Rehabilitation. This involves staying in a treatment center where you can have medical and mental health support all the time. ??? Medicines to relieve symptoms of mental illness and to control symptoms that are caused by stopping substance abuse (withdrawal symptoms). ??? Support groups. These groups encourage you to talk about your fears, frustrations, and anxieties with others who have the same condition. ??? Talk therapy. This is one-on-one therapy that can help you learn about your illness and learn ways to cope with symptoms or side effects. Follow these instructions at home: Medicines ??? Take [id number] and prescription medicines only as told by your health care provider. ??? Do not stop taking medicines unless you ask your health care provider if it is safe to do that. ??? Tell your health care provider about any medicine side effects that you experience. Lifestyle ??? Exercise regularly. Aim for 150 minutes of moderate exercise (such as walking or biking) or 75 minutes of vigorous exercise (such as running) each week. ??? Eat a healthy diet with plenty of fruits and vegetables, whole grains, and lean proteins. ??? Avoid caffeine and tobacco. These can worsen symptoms and anxiety. ??? Do not drink alcohol or use drugs. ??? Try to get 7???9 hours of sleep each night. To do this: ??? Keep your bedroom cool and dark. ??? Do not eat a heavy meal during the hour before you go to bed. ??? Do not have caffeine before bedtime. ??? Avoid screen time during the few hours before bedtime. This means not watching TV and not usinga computer, mobile phone, or tablet. General instructions ??? Follow your treatment plan as directed. Work with your health care provider to adjust your treatment plan as needed. ??? Attend support group or therapy sessions as directed. ??? Explain your diagnosis to your friends and family. Let them know what your symptoms are and what things cause your symptoms to start (triggers). ??? Avoid triggers or stressors that may worsen your symptoms or cause you to use alcohol or drugs.Spend time with family and friends who do not use substances. ??? Make time to relax and do self-soothing activities, such as meditating or listening to music. ??? Keep all follow-up visits. This is important. Where to find support You may find support for coping with substance use disorder and mental illness from: ??? Your health care providers or your therapist. These providers can treat you or can help you find services to treat your condition. ??? Local support groups for people with your condition. Your health care provider or therapist maybe able to recommend a support group. This may be a hospital support group, a National Newcomb on Mental Illness (JESSE) support group, or a 12-step group such as Alcoholics Anonymous (AA) or Narcotics Anonymous (NA). ??? Family and friends. Let them know what they can do to best support you through your recovery process. Where to find more information ??? Substance Abuse and Mental Health Services Administration (SAMHSA): ??? Online: www.samhsa.gov ??? National Helpline, to talk with a person who can help you find information about treatment services in your area: 1???877???726???4727 (1???877???[facility]) ??? U.S. Department of Health and Human Services mental health services: www.mentalhealth.gov ??? National Newcomb on Mental Illness (JESSE): www.jesse.org Contact a health care provider if: ??? Your symptoms get worse or they do not get better. ??? You have negative side effects from taking medicines. ??? You want to discuss stopping medicines or treatment. ??? You start using a substance again (have a relapse). Get help right away if: ??? You have thoughts about harming yourself or others. If you ever feel like you may hurt yourself or others, or have thoughts about taking your own life,get help right away. Go to your nearest emergency department or: ??? Call your local emergency services (991 in the [place] ??? Call a suicide crisis helpline, such as the National Suicide Prevention Lifeline at or 552 in the [place] This is open 24 hours a day in the [place] ??? Text the Crisis Text Line at 208434 (in the [place] Summary ??? Substance use disorder and mental illness can occur at the same time (co- occurring disorders), and they may be diagnosed together (dual diagnosis). ??? These conditions can be difficult to diagnose at the same time. It is important to be completely honest with your health care provider about your substance use and your other symptoms. ??? It is best to treat substance use disorder and mental illness at the same time (integrated treatment approach). ??? Identifying new ways to deal with triggers and difficult situations is an important part of recovery. ??? Keep all follow-up visits. Attend support groups or treatment programs as directed. This information is not intended to replace advice given to you by your health care provider. Make sure you discuss any questions you have with your health care provider. Document Revised: 11/29/2021 Document Reviewed: 09/01/2021 Elsevier Patient Education ?? 2022 [employer] Follow Up Care 09/27/2023 19:33:43 With:Kike Blanco MD Address: [address] [address]- When:1 to 2 weeks Pharmacology Progress note * Elke Smiley: PERFORM Event Display: Pharmacy Progress Note Authored Date: [id number] Pharmacy Progress Note TelePharmacy Home Medication List Update for Medication Reconciliation 09/27/23 10:21 PM Erin Esparza 1990 ??? Person Interviewed: patient ??? Quality of Interview/accuracy of medication list: good ??? Sources used to compile medication list: ??? EHR medication list ??? SureScripts/Dispense Report ? Changes made to home medication list: o Additions: ??? Ibuprofen o Deletions: ??? none o Changes: ??? none ? Additional Notes: o Medication list updated based on information provided by the patient o Pt states that she took 1 dose of Ritalin today o Pt takes lamotrigine and quetiapine at bedtime - last doses last night o Pt states that she receives methadone 170 mg daily from the [facility] in [place], [place]. Theclinic is currently closed so I was unable to verify the pt's dose at this time. I did leave a message for the clinic to call us to verify the dose. The after hours number is [phone]. The daytime number is [phone]. o Pt states that she did receive a dose of methadone today o ??? Recommended changes: none ? The home medication list is now updated to the best of my knowledge and is ready to be reconciled by the provider. Please contact the TelePharmacy Medication Reconciliation Pharmacist at for any questions. ??? Electronically Signed on 09/27/23 10:26 PM Elke Smiley Physician Emergency department Note * Louann Ray MD: PERFORM Event Display: ED Note Physician Authored Date: [id number] ERIN ESPARZA :1990 Age:33 years Sex:Female Visit Date:09/27/2023 Primary Care Physician: Kike Blanco MD Basic Information Time Seen: Anthony Hummel MD / 09/27/2023 19:46 Chief Complaint smoked heroin 1 hour [employer]. have not used since jun of this year until today. I want to go to rehab. feeling depressed feeling very jittery thoughts of SI by OD. denies HI/AH/VH History Of Present Illness: Pt signed out to me at 7am this morning. No event overnight. Pt is for voluntary admission to psychiatry. -------- at 11am PETER reevaluated the patient and recommended that she actually goes to rehab, which she was agreeable to. We were able to reach out to [facility] early evening. Plan is for them to come and evaluate the patient later tonight and take her with them, for placement at [facility] tomorrow.?? Signed out to Dr Cage at 1900 Physical Exam Vitals & Measurements T:??36.6?C ??(Temporal Artery)?? HR:??93??(Peripheral)?? RR:??18?? BP:??130/79?? SpO2:??98%?? HT:??160??cm?? WT:??77.11??kg?? BMI:??30.12?? Pain Score:??3?? O2 Therapy:??Room air?? Procedure No Qualifying Data Assessment/Plan 1.??Substance use??F19.90 2.??Suicidal thoughts??R45.851 3.??Transaminitis??R74.01 Bipolar disorder, unspecified??F31.9 Orders: Tylenol, 650 mg = 2 tab, Oral, Tab, every 6 hr, PRN pain, First Dose: 09/29/23 9:10:00 EDT, STAT Medication Reconciliation Changed [id number] Milligrams Oral (given by mouth) every day. ?? Unchanged [id number] Milligrams Oral (given by mouth) 3 times a day as needed as needed for pain. ?? lamoTRIgine (LaMICtal 100 mg oral tablet)1 tab Oral (given by mouth) every day for 30 Days. Refills: 2. ?? lamoTRIgine (LaMICtal 25 mg oral tablet)1 tab Oral (given by mouth) every day for 30 Days. Take with lamictal 100 mg each evening. Refills: 2. ?? methylphenidate (Ritalin 20 mg oral tablet)1 tab Oral (given by mouth) 3 times a day for 28 Days. Refills: 0. ?? QUEtiapine (QUEtiapine 25 mg oral tablet)1 tab Oral (given by mouth) every night at bedtime for 30 Days. Take with quetiapine 50 mg nightly. Refills: 2. ?? QUEtiapine (QUEtiapine 50 mg oral tablet)1 tab Oral (given by mouth) every night at bedtime for 30 Days. Refills: 2. Problem List/Past Medical History Ongoing Bipolar disorder, unspecified Encounter for medication management Female stress incontinence Morbid obesity Tobacco user Historical Procedure/Surgical History ??? delivery???Ectopic Medication Administration Given acetaminophen, 1000 mg, Oral LaMICtal, 100 mg, 100 mg, 100 mg, Oral. For: Bipolar disorder, unspecified LaMICtal, 25 mg, 25 mg, 25 mg, Oral. For: Bipolar disorder, unspecified methadone, 170 mg, Oral methadone, 170 mg, Oral Nicorette, 2 mg, 2 mg, 2 mg, 2 mg, 2 mg, 2 mg, 2 mg, 2 mg, 2 mg, 2 mg, Chewed QUEtiapine, 50 mg, 50 mg, 50 mg, Oral. For: Bipolar disorder, unspecified QUEtiapine, 25 mg, 25 mg, 25 mg, Oral. For: Bipolar disorder, unspecified Tylenol, 650 mg, Oral Tylenol, 1000 mg, Oral Tylenol, 500 mg, Oral Allergies INSECT VENOM??(Anaphylactic reaction) LATEX??(Urticaria) aspirin??(Urticaria) clindamycin??(Anaphylactic reaction) Social History Alcohol Never Electronic Cigarette/Vaping Electronic Cigarette Use: Never. Employment/School Unemployed Home/Environment Lives with Children. Nutrition/Health Caffeine intake amount: soda daily. Psychosocial Substance Use Past, Heroin, Marijuana- Comments: Clean from Heroin for 8 years and is in the [employer] [facility] substance program receiving Methadone. Tobacco Current everyday tobacco user Tobacco Use:. 1 PPD every 3-4 days per day. Lab Results CBC and Differential?? LATEST RESULTS?? HISTORICAL RESULTS?? WBC?? 09/27/23 20:08?? 14.9 ??High?? 06/07/23?? 13.0 ??High?? RBC?? 09/27/23 20:08?? 4.9?? 06/07/23?? 4.7?? Hgb?? 09/27/23 20:08?? 15.0?? 06/07/23?? 14.4?? Hct?? 09/27/23 20:08?? 42.6?? 06/07/23?? 39.2?? MCV?? 09/27/23 20:08?? 86.2?? 06/07/23?? 83.6?? MCH?? 09/27/23 20:08?? 30.4?? 06/07/23?? 30.7?? MCHC?? 09/27/23 20:08?? 35.2 ??High?? 06/07/23?? 36.7 ??High?? RDW-CV?? 09/27/23 20:08?? 12.0?? 06/07/23?? 12.2?? Platelets?? 09/27/23 20:08?? 476 ??High?? 06/07/23?? 489 ??High?? Neutro Auto?? 09/27/23 20:08?? 72.5?? 06/07/23?? 62.0?? Lymph Auto?? 09/27/23 20:08?? 17.6 ??Low?? 06/07/23?? 27.0?? Kent Auto?? 09/27/23 20:08?? 8.7?? 06/07/23?? 8.4?? Eos, Auto?? 09/27/23 20:08?? 0.7 ??Low?? 06/07/23?? 2.0?? Basophil Auto?? 09/27/23 20:08?? 0.2?? 06/07/23?? 0.2?? Imm Gran Auto?? 09/27/23 20:08?? 0.3?? 06/07/23?? 0.4?? Neutro Absolute?? 09/27/23 20:08?? 10.8?? 06/07/23?? 8.0? Routine Chemistry?? LATEST RESULTS?? HISTORICAL RESULTS?? Sodium Level?? 09/27/23 20:08?? 136?? 06/07/23?? 141?? Potassium Level?? 09/27/23 20:08?? 4.2?? 06/07/23?? 3.3 ??Low?? Chloride Level?? 09/27/23 20:08?? 98?? 06/07/23?? 101?? CO2?? 09/27/23 20:08?? 26?? 06/07/23?? 28?? Alk Phos?? 09/27/23 20:08?? 140?? 06/07/23?? 129?? AST?? 09/27/23 20:08?? 89 ??High?? 06/07/23?? 32?? ALT?? 09/27/23 20:08?? 67 ??High?? 06/07/23?? 33?? BUN?? 09/27/23 20:08?? 18?? 06/07/23?? 13?? Glucose Level?? 09/27/23 20:08?? 90?? 06/07/23?? 117 ??High?? Creatinine Level?? 09/27/23 20:08?? 1.39 ??High?? 06/07/23?? 0.75?? eGFR AA?? 09/27/23 20:08?? 51 ??Low?? 06/07/23?? 108?? eGFR Non-AA?? 09/27/23 20:08?? 51 ??Low?? 06/07/23?? 108?? Calcium Level?? 09/27/23 20:08?? 9.5?? 06/07/23?? 9.3?? Protein Total?? 09/27/23 20:08?? 8.1?? 06/07/23?? 7.2?? Albumin Level?? 09/27/23 20:08?? 4.5?? 06/07/23?? 3.9?? Bilirubin Total?? 09/27/23 20:08?? 0.7?? 06/07/23?? 0.6? Testing?? LATEST RESULTS?? HISTORICAL RESULTS?? U hCG Ql?? 09/27/23 20:04?? Negative?? 06/07/23?? Negative? Serum Toxicology?? LATEST RESULTS?? HISTORICAL RESULTS?? Acetaminophen Level?? 09/27/23 20:07?? <0.5 ??Low? Salicylate Level?? 09/27/23 20:07?? 2.4 ??Low? Ethanol Level?? 09/27/23 20:07?? <5?? 06/07/23?? <5? Urine Toxicology?? LATEST RESULTS?? HISTORICAL RESULTS?? U Amph Scrn?? 09/27/23 20:04?? Negative?? 09/16/23?? Negative?? U Katlyn Scrn?? 09/27/23 20:04?? Negative?? 09/16/23?? Negative?? U Benzodia Scrn?? 09/27/23 20:04?? Negative?? 09/16/23?? Negative?? U Buprenorph Scr?? 09/27/23 20:04?? Negative?? 09/16/23?? Negative?? U Cocaine Scrn?? 09/27/23 20:04?? Positive Abnormal?? 09/16/23?? Negative?? U TCA Scr?? 09/27/23 20:04?? Negative?? 09/16/23?? Negative?? U THC Scr?? 09/27/23 20:04?? Negative?? 09/16/23?? Negative?? U mAMP Scr?? 09/27/23 20:04?? Negative?? 09/16/23?? Negative?? U Methadone Scr?? 09/27/23 20:04?? Positive Abnormal?? 09/16/23?? Positive Abnormal?? U Opiate Scrn?? 09/27/23 20:04?? Negative?? 09/16/23?? Negative?? U Oxy Scrn?? 09/27/23 20:04?? Negative?? 09/16/23?? Negative?? U PCP Scrn?? 09/27/23 20:04?? Negative?? 09/16/23?? Negative? UA Macroscopic?? LATEST RESULTS?? HISTORICAL RESULTS?? UA Color?? 09/27/23 20:04?? Dark Yellow?? 06/07/23?? Yellow?? UA Appear?? 09/27/23 20:04?? Clear?? 06/07/23?? Clear?? UA Glucose?? 09/27/23 20:04?? Negative?? 06/07/23?? Negative?? UA Bili?? 09/27/23 20:04?? 2+ Abnormal?? 06/07/23?? Negative?? UA Ketones?? 09/27/23 20:04?? Trace Abnormal?? 06/07/23?? Negative?? UA Spec Grav?? 09/27/23 20:04?? >=1.030?? 06/07/23?? 1.010?? UA Blood?? 09/27/23 20:04?? 1+ Abnormal?? 06/07/23?? Trace Abnormal?? UA pH?? 09/27/23 20:04?? 5.5?? 06/07/23?? 6.5?? UA Protein?? 09/27/23 20:04?? 2+ Abnormal?? 06/07/23?? Negative?? UA Urobilinogen?? 09/27/23 20:04?? Positive Abnormal?? 06/07/23?? Normal?? UA Nitrite?? 09/27/23 20:04?? Negative?? 06/07/23?? Negative?? UA Leuk Est?? 09/27/23 20:04?? Negative?? 06/07/23?? Negative?? UA Culture Ind?.?? 09/27/23 20:04?? Not Indicated?? 06/07/23?? Not Indicated? UA Microscopic?? LATEST RESULTS?? HISTORICAL RESULTS?? UA WBC?? 09/27/23 20:04?? 0-3?? 06/07/23?? 0-3?? UA RBC?? 09/27/23 20:04?? 3-5?? 06/07/23?? 0-2?? UA Squam Epithelial?? 09/27/23 20:04?? Moderate Abnormal?? 06/07/23?? Rare?? UA Mucous?? 09/27/23 20:04?? Moderate Abnormal?? 06/07/23?? None Seen?? UA Bacteria?? 09/27/23 20:04?? Rare?? 06/07/23?? None Seen?? UA Amorph?? 09/27/23 20:04?? Few? UA Hyal Cast?? 09/27/23 20:04?? Moderate? UA Gran Cast?? 09/27/23 20:04?? Moderate? Electronically Signed on 09/29/23 07:04 PM Louann Ray MD * Anthony Hummel MD: PERFORM Event Display: ED Note Physician Authored Date: [id number] ERIN ESPARZA :1990 Age:33 years Sex:Female Visit Date:09/27/2023 Primary Care Physician: Kike Blanco MD Endorsed to me by Dr. Lennon at shift change. ??Remains voluntary status substance abuse/SI withplacement pending. ??No acute events overnight. ??She had requested Tylenol for headache which was provided.?? Will transition care to Dr. Ray at shift change Electronically Signed on 09/29/23 06:53 AM Anthony Hummel MD * Rico Lennon MD: PERFORM Event Display: ED Note Physician Authored Date: [id number] Patient signed out to me by previous physician Dr. Hummel. No acute events earlier in the morning today on 09/27. She did request her methadone dose of 170 mg daily, we confirmed the dose by calling the [facility], RN Blessing spoke with their nurse over the phone to confirm the dose, methadone was given this morning for Electronically Signed on 09/28/23 08:15 AM Rico Lennon MD Emergency department Discharge instructions * Rico Lennon MD: PERFORM Event Display: ED Discharge Information Authored Date: [id number] NIKICYRUS ERIN E :1990 Age:33 years Sex:Female Visit Date:09/27/2023 Primary Care Physician: Kike Blanco MD Discharge Instructions We would like to thank you for allowing us to assist you with your healthcare needs. The following includes patient education materials and information regarding your injury/illness. Diagnosis from Today's Visit Substance use Suicidal thoughts Transaminitis Substance abuse Bipolar disorder, unspecified Discharge Vitals Temperature??(Temporal Artery) 97.9 ??F (36.6 ??C) Heart Rate??(Peripheral) 93 Respiratory Rate?? 18 Blood Pressure?? 130/79?? SpO2?? 98% Allergies INSECT VENOM??(Anaphylactic reaction) LATEX??(Urticaria) aspirin??(Urticaria) clindamycin??(Anaphylactic reaction) What to Do Next You Need to Schedule the Following Appointments Follow Up with??Kike Blanco MD When:??Within 1 to 2 weeks Where: [facility] [address] [address] Upcoming Scheduled Appointments Saturday 9:15 AM EDT ?? With: Beatriz Slade DNP Where: [address] [address] Status: Confirmed Saturday 9:15 AM EDT ?? With: Beatriz Slade DNP Where: [address] [address] Status: Confirmed Saturday 1:00 PM EST ?? With: Kike Blanco MD Where: [facility] [address] [address] Status: Confirmed You were treated today on an emergency basis; it may be conroy to contact your primary care provider to notify them of your visit today. You may have been referred to your regular doctor or a specialist, please follow up as instructed. If your condition worsens or you can't get in to see the doctor, contact the Emergency Department. Medications What How Much When Why Instructions Next Dose Changed methadone 170 Milligrams Oral (given by mouth) Every day Unchanged ibuprofen 800 Milligrams Oral (given by mouth) 3 times a day as needed for as needed for pain Unchanged lamoTRIgine (LaMICtal 100 mg oral tablet) 1 tab Oral (given by mouth) Every day Bipolar disorder, unspecified Duration: 30 Days Unchanged lamoTRIgine (LaMICtal 25 mg oral tablet) 1 tab Oral (given by mouth) Every day Bipolar disorder, unspecified Duration: 30 Days Take with lamictal 100 mg each evening ?? Unchanged methylphenidate (Ritalin 20 mg oral tablet) 1 tab Oral (given by mouth) 3 times a day ADHD Duration: 28 Days Unchanged QUEtiapine (QUEtiapine 25 mg oral tablet) 1 tab Oral (given by mouth) Every night at bedtime Bipolar disorder, unspecified Duration: 30 Days Take with quetiapine 50 mg nightly ?? Unchanged QUEtiapine (QUEtiapine 50 mg oral tablet) 1 tab Oral (given by mouth) Every night at bedtime Bipolar disorder, unspecified Duration: 30 Days Education Materials Substance Use Disorder and Mental Illness Substance use disorder is a condition in which a person is dependent on a substance, such as drugs or alcohol. A mental illness is a condition that occurs when someone experiences changes in mood, behavior, or thinking. Sometimes, these two conditions can occur at the same time (co-occurring disorders) and may be diagnosed together (dual diagnosis). What is the relationship between substance use disorder and mental illness? Substance use disorder and mental illness can share symptoms and can have similar causes, such as exposure to stress or changes in brain chemicals. The risk for developing both of these conditions can be passed from parent to child (inherited). People with mental illnesses sometimes use drugs to try to relieve symptoms, and this can lead to substance use disorder. Substance use disorders occur more often in people who have depression, schizophrenia, anxiety, or personality disorders. Also, when some drugs are used regularly, they can cause people to have symptoms of mental illness. What are the signs or symptoms? Symptoms vary widely for substance use disorder and mental illness, especially because these conditions can be present at the same time. Signs of a substance use disorder ? Failure to meet responsibilities at home, work, or school. ? Using substances in risky situations, such as while driving or using machinery. ? Taking serious risks to get drugs or alcohol. ? Spending less time on activities or hobbies that used to be important. ? Changes in personality or attitude for no reason, such as angry outbursts, symptoms of anxiety, or unusual giddiness. ? Trying to hide the amount of drugs or alcohol used. ? Increased substance use over time, or needing to use more of a substance to feel the same effects (developing a tolerance). ? Physical symptoms may include: ? Sudden weight loss or gain. ? Sleeping too much or too little. ? Uncontrolled trembling or shaking (tremors), slurred speech, or lack of coordination. ? Continuing to use alcohol or a drug even though using it has led to bad outcomes or consequences, such as losing a job or ending a relationship. Signs and symptoms of mental illness ? Withdrawing from friends and family, or sudden changes in social behaviors or hobbies. ? Aggression toward people and animals. ? Repeatedly breaking serious rules or breaking the law. ? Persistent feelings of sadness, hopelessness, or thoughts of suicide. ? Having persistent thoughts or urges that are unpleasant or feel out of control (involuntary). The person may feel the need to act on the urges in order to reduce anxiety. ? False beliefs (delusions). ? Seeing, hearing, tasting, smelling, or feeling things that are not real (hallucinations). ? Other signs include: ? Sleeping too much or too little. ? Weight loss or weight gain. ? Being easily distracted. ? Extreme mood changes (mood swings). ? Confused thinking or trouble concentrating. How is this diagnosed? Substance use disorder and mental illnesses can be difficult to diagnose at the same time because of how varied and complex the symptoms are. Because these conditions can interact, one condition may be missed. This is why it is important to be completely honest with your health care provider about substance use and your other symptoms. Diagnosing your condition may include: ? A physical exam. ? A review of your medical history and your symptoms. Your health care provider may refer you to a mental health professional for a psychiatric evaluation. This may include assessments of: ? Your use of substances. ? Your risk of suicide. ? Your risk of aggressive behaviors. ? Your lifestyle, environment, and social situations. ? Your medical health. ? Your mental health and behavioral history. How is this treated? It is best to treat substance use disorder and mental illness at the same time (integrated treatment approach). Treatment usually involves more than one of the following methods: ? Detox. This refers to stopping substance abuse while being monitored by trained medical staff. Thisis usually the first step in treatment. Detox can last for up to 7 days. ? Rehabilitation. This involves staying in a treatment center where you can have medical and mental health support all the time. ? Medicines to relieve symptoms of mental illness and to control symptoms that are caused by stoppingsubstance abuse (withdrawal symptoms). ? Support groups. These groups encourage you to talk about your fears, frustrations, and anxieties with others who have the same condition. ? Talk therapy. This is one-on-one therapy that can help you learn about your illness and learn ways to cope with symptoms or side effects. Follow these instructions at home: Medicines ? Take [id number] and prescription medicines only as told by your health care provider. ? Do not stop taking medicines unless you ask your health care provider if it is safe to do that. ? Tell your health care provider about any medicine side effects that you experience. Lifestyle ? Exercise regularly. Aim for 150 minutes of moderate exercise (such as walking or biking) or 75 minutes of vigorous exercise (such as running) each week. ? Eat a healthy diet with plenty of fruits and vegetables, whole grains, and lean proteins. ? Avoid caffeine and tobacco. These can worsen symptoms and anxiety. ? Do not drink alcohol or use drugs. ? Try to get 7???9 hours of sleep each night. To do this: ? Keep your bedroom cool and dark. ? Do not eat a heavy meal during the hour before you go to bed. ? Do not have caffeine before bedtime. ? Avoid screen time during the few hours before bedtime. This means not watching TV and not using a computer, mobile phone, or tablet. General instructions ? Follow your treatment plan as directed. Work with your health care provider to adjust your treatment plan as needed. ? Attend support group or therapy sessions as directed. ? Explain your diagnosis to your friends and family. Let them know what your symptoms are and what things cause your symptoms to start (triggers). ? Avoid triggers or stressors that may worsen your symptoms or cause you to use alcohol or drugs. Spend time with family and friends who do not use substances. ? Make time to relax and do self-soothing activities, such as meditating or listening to music. ? Keep all follow-up visits. This is important. Where to find support You may find support for coping with substance use disorder and mental illness from: ? Your health care providers or your therapist. These providers can treat you or can help you find services to treat your condition. ? Local support groups for people with your condition. Your health care provider or therapist may be able to recommend a support group. This may be a hospital support group, a National New[employer] on Mental Illness (JESSE) support group, or a 12-step group such as Alcoholics Anonymous (AA) or Narcotics Anonymous (NA). ? Family and friends. Let them know what they can do to best support you through your recovery process. Where to find more information ? Substance Abuse and Mental Health Services Administration (SAMHSA): ? Online: www.samhsa.gov ? [facility], to talk with a person who can help you find information about treatment servicesin your area: 1???877???726???4727 (1???877???[facility]) ? [place] Department of Health and Human Services mental health services: www.mentalhealth.gov ? National Newcomb on Mental Illness (JESSE): www.jesse.org Contact a health care provider if: ? Your symptoms get worse or they do not get better. ? You have negative side effects from taking medicines. ? You want to discuss stopping medicines or treatment. ? You start using a substance again (have a relapse). Get help right away if: ? You have thoughts about harming yourself or others. If you ever feel like you may hurt yourself or others, or have thoughts about taking your own life,get help right away. Go to your nearest emergency department or: ? Call your local emergency services (911 in the [place] ? Call a suicide crisis helpline, such as the National Suicide Prevention Lifeline at or 165 in the [place] This is open 24 hours a day in the [place] ? Text the Crisis Text Line at 034956 (in the [place] Summary ? Substance use disorder and mental illness can occur at the same time (co- occurring disorders), and they may be diagnosed together (dual diagnosis). ? These conditions can be difficult to diagnose at the same time. It is important to be completely honest with your health care provider about your substance use and your other symptoms. ? It is best to treat substance use disorder and mental illness at the same time (integrated treatment approach). ? Identifying new ways to deal with triggers and difficult situations is an important part of recovery. ? Keep all follow-up visits. Attend support groups or treatment programs as directed. This information is not intended to replace advice given to you by your health care provider. Make sure you discuss any questions you have with your health care provider. Document Revised: 11/29/2021 Document Reviewed: 09/01/2021 [employer] Patient Education ?? 2022 [employer] Tests Performed Medications and Immunizations Administered Given acetaminophen, 1000 mg, Oral LaMICtal, 100 mg, 100 mg, 100 mg, Oral. For: Bipolar disorder, unspecified LaMICtal, 25 mg, 25 mg, 25 mg, Oral. For: Bipolar disorder, unspecified methadone, 170 mg, Oral methadone, 170 mg, Oral Nicorette, 2 mg, 2 mg, 2 mg, 2 mg, 2 mg, 2 mg, 2 mg, 2 mg, 2 mg, 2 mg, Chewed QUEtiapine, 50 mg, 50 mg, 50 mg, Oral. For: Bipolar disorder, unspecified QUEtiapine, 25 mg, 25 mg, 25 mg, Oral. For: Bipolar disorder, unspecified Tylenol, 650 mg, Oral Tylenol, 1000 mg, Oral Tylenol, 500 mg, Oral Lab Test Name Test Result Date/Time WBC 14.9 x10^3/mcL 09/27/2023 20:08 EDT RBC 4.9 x10^6/mcL 09/27/2023 20:08 EDT Hgb 15.0 g/dL 09/27/2023 20:08 EDT Hct 42.6 % 09/27/2023 20:08 EDT MCV 86.2 fL 09/27/2023 20:08 EDT MCH 30.4 pg 09/27/2023 20:08 EDT MCHC 35.2 g/dL 09/27/2023 20:08 EDT RDW-CV 12.0 % 09/27/2023 20:08 EDT Platelets 476 x10^3/mcL 09/27/2023 20:08 EDT Neutro Auto 72.5 % 09/27/2023 20:08 EDT Lymph Auto 17.6 % 09/27/2023 20:08 EDT Kent Auto 8.7 % 09/27/2023 20:08 EDT Eos, Auto 0.7 % 09/27/2023 20:08 EDT Basophil Auto 0.2 % 09/27/2023 20:08 EDT Imm Gran Auto 0.3 % 09/27/2023 20:08 EDT Neutro Absolute 10.8 x10^3/mcL 09/27/2023 20:08 EDT Sodium Level 136 mmol/L 09/27/2023 20:08 EDT Potassium Level 4.2 mmol/L 09/27/2023 20:08 EDT Chloride Level 98 mmol/L 09/27/2023 20:08 EDT CO2 26 mmol/L 09/27/2023 20:08 EDT Alk Phos 140 unit/L 09/27/2023 20:08 EDT AST 89 unit/L 09/27/2023 20:08 EDT ALT 67 unit/L 09/27/2023 20:08 EDT BUN 18 mg/dL 09/27/2023 20:08 EDT Glucose Level 90 mg/dL 09/27/2023 20:08 EDT Creatinine Level 1.39 mg/dL 09/27/2023 20:08 EDT eGFR AA 51 09/27/2023 20:08 EDT eGFR Non-AA 51 09/27/2023 20:08 EDT Calcium Level 9.5 mg/dL 09/27/2023 20:08 EDT Protein Total 8.1 g/dL 09/27/2023 20:08 EDT Albumin Level 4.5 g/dL 09/27/2023 20:08 EDT Bilirubin Total 0.7 mg/dL 09/27/2023 20:08 EDT U hCG Ql NEGATIVE 09/27/2023 20:04 EDT Acetaminophen Level <0.5 ug/mL 09/27/2023 20:07 EDT Salicylate Level 2.4 mg/dL 09/27/2023 20:07 EDT Ethanol Level <5 mg/dL 09/27/2023 20:07 EDT U Amph Scrn NEGATIVE 09/27/2023 20:04 EDT U Katlyn Scrn NEGATIVE 09/27/2023 20:04 EDT U Benzodia Scrn NEGATIVE 09/27/2023 20:04 EDT U Buprenorph Scr NEGATIVE 09/27/2023 20:04 EDT U Cocaine Scrn POSITIVE 09/27/2023 20:04 EDT U TCA Scr NEGATIVE 09/27/2023 20:04 EDT U THC Scr NEGATIVE 09/27/2023 20:04 EDT U mAMP Scr NEGATIVE 09/27/2023 20:04 EDT U Methadone Scr POSITIVE 09/27/2023 20:04 EDT U Opiate Scrn NEGATIVE 09/27/2023 20:04 EDT U Oxy Scrn NEGATIVE 09/27/2023 20:04 EDT U PCP Scrn NEGATIVE 09/27/2023 20:04 EDT UA Color Dark Yello 09/27/2023 20:04 EDT UA Appear CLEAR. 09/27/2023 20:04 EDT UA Glucose NEGATIVE 09/27/2023 20:04 EDT UA Bili 2+ 09/27/2023 20:04 EDT UA Ketones TRACE. 09/27/2023 20:04 EDT UA Spec Grav >=1.030 09/27/2023 20:04 EDT UA Blood 1+ 09/27/2023 20:04 EDT UA pH 5.5 09/27/2023 20:04 EDT UA Protein 2+ 09/27/2023 20:04 EDT UA Urobilinogen 1.0 Uro 09/27/2023 20:04 EDT UA Nitrite NEGATIVE 09/27/2023 20:04 EDT UA Leuk Est NEGATIVE 09/27/2023 20:04 EDT UA Culture Ind?. Not Indicated 09/27/2023 20:04 EDT UA WBC 0-3 09/27/2023 20:04 EDT UA RBC 3-5 09/27/2023 20:04 EDT UA Squam Epithelial Moderate 09/27/2023 20:04 EDT UA Mucous Moderate 09/27/2023 20:04 EDT UA Bacteria Rare 09/27/2023 20:04 EDT UA Amorph Few 09/27/2023 20:04 EDT UA Hyal Cast Moderate 09/27/2023 20:04 EDT UA Gran Cast Moderate 09/27/2023 20:04 EDT Patient/Stem Roller Operator Signature Patient Name:ERIN ESPARZA I have received this information and my questions have been answered. Patient/Stem Roller Operator Name: Patient/Stem Roller Operator Signature: Relationship to Patient: Witness Name/Signature: Date: Electronically Signed on: 09/29/2023 19:16 EDTSigned by:[facility] Emergency department Note * Kaity Diaz: PERFORM Event Display: ED Notes Authored Date: * Kaity Diaz: PERFORM Event Display: ED Notes Authored Date: [id number] * Kaity Diaz: PERFORM Event Display: ED Notes Authored Date: [id number] Patient Care team information Care Team Personnel Name: Kike Blanco MD Position: Physician Member Role: Informed Provider Address: Address: [address] Care Team Related Persons Name: KAUSHAL ESPRAZA Address: [address] [place], [place] [id number] Address: Home [address] [facility] [id number] Address: [address] [place], [place] [id number] Name: KAUSHAL ESPARZA Address: [address] [place], [place] [id number] Address: Home [address] [facility] [id number] Address: [address] [place], [place] [id number] Name: KATLYN ESPARZA Name: KATLYN ESPARZA Name: RASTA CABALLERO
--- OUTSIDE RECORDS SUMMARY | 2024-02-25 14:25 | XMS_ITS | Continuity of Care Document ---
Author Organization [facility] Address [address] [place] [address] Care Team Providers Care Nylon Mender Name Role Phone Kike Blanco Primary Care Physician Encounter [facility] Date(s): 07/15/23 - 07/15/23 [facility] [address] [place] [address] Discharge Disposition: Home or Self Care Attending Physician: Pierre Moreno MD Admitting Physician: Pierre Moreno MD Referring Physician: Pierre Moreno MD Allergies, Adverse Reactions, Alerts Substance Reaction Severity Status INSECT VENOM Anaphylactic reaction Unknown Active LATEX Urticaria Unknown Active clindamycin Anaphylactic reaction Unknown Active aspirin Urticaria Unknown Active Assessment and Plan Future Appointments Future [...] conjugate (PRP-T) vaccine 90 R ecorded Medications LaMICtal 100 mg oral tablet 100 mg = 1 tab, Oral, Daily, # 30 tab, 2 Refill(s), Pharmacy: [facility] #[id number], 160, cm,12/09/22 7:53:00 EDT, Height/Length Dosing, 77.11, kg, 12/09/22 7:53:00 EDT, Weight Dosing Start Date: 06/28/23 Stop Date: 09/26/23 Status: Ordered methadone See Instructions, takes Methadone 155 mg's daily through the [facility] 0 Refill(s) Start Date: 11/23/22 Status: Ordered methylphenidate 10 mg oral tablet 20 mg = 2 tab, Oral, TID, # 168 tab, 0 Refill(s), Pharmacy: [facility] #[id number], 160, cm, 12/09/22 7:53:00 EDT, Height/Length Dosing, 77.11, kg, 12/09/22 7:53:00 EDT, Weight Dosing Start Date: 06/11/23 Stop Date: 07/09/23 Status: Ordered QUEtiapine 50 mg oral tablet 50 mg = 1 tab, Oral, every night at bedtime, # 30 tab, 2 Refill(s), Pharmacy: [facility] #[id number], 160, cm, 12/09/22 7:53:00 EDT, Height/Length Dosing, 77.11, kg, 12/09/22 7:53:00 EDT, WeightDosing Start Date: 06/28/23 Stop Date: 09/26/23 Status: Ordered Ritalin 10 mg oral tablet 20 mg = 2 tab, Oral, TID, Please fill 08/06/2023, # 168 tab, 0 Refill(s), Pharmacy: [facility] #[id number], 160, cm, 12/09/22 7:53:00 EDT, Height/Length Dosing, 77.11, kg, 12/09/22 7:53:00 EDT, Weight Dosing Start Date: 06/28/23 Stop Date: 07/26/23 Status: Ordered Ritalin 10 mg oral tablet 20 mg = 2 tab, Oral, TID, Please fill 07/09/2023, # 168 tab, 0 Refill(s), Pharmacy: [facility] #[id number], 160, cm, 12/09/22 7:53:00 EDT, Height/Length Dosing, 77.11, kg, 12/09/22 7:53:00 EDT, Weight Dosing Start Date: 06/28/23 Stop Date: 07/26/23 Status: Ordered Ritalin 10 mg oral tablet 10 mg = 1 tab, Oral, TID, Please fill 09/03/2023, # 84 tab, 0 Refill(s), Pharmacy: [facility] #[id number], 160, cm, 12/09/22 7:53:00 EDT, Height/Length Dosing, 77.11, kg, 12/09/22 7:53:00 EDT, Weight Dosing Start Date: 06/28/23 Stop Date: 07/26/23 Status: Ordered Ritalin 20 mg oral tablet 20 mg = 1 tab, Oral, TID, # 84 tab, 0 Refill(s), Pharmacy: [facility] #[id number], 160, cm, 12/09/22 7:53:00 EDT, Height/Length Dosing, 77.11, kg, 12/09/22 7:53:00 EDT, Weight Dosing Start Date: 07/01/23 Stop Date: 07/29/23 Status: Ordered Problem List Condition Confirmation Course Effective Dates Status Health St atus Informant Bipolar disorder, unspecified Confirmed Active Female stress incontinence Confirmed Active Encounter for medication management Confirmed Active Procedures Procedure Date Related Diagnosis Body Site Status delivery 1 Compl eted Ectopic Completed 1x2 Results Laboratory List Name Date HIV 1/2 Ag and Ab, 4th Generation [facility] Most recent to oldest [Reference Range]: 1 HIV 1 and 2 Ab/p24 Ag, 4th Gen [facility] [Nega tive] Negative 1 *NA* (07/15/23 3:12 PM) 1Result Comment: If acute HIV-1 infection is suspected in a high risk patient, submit plasma specimen for HIV-1 RNA quantitation test. Fourth Generation assay performed on the Siemens Centaur XPT. Test performed [place] [address] Social History Social History Type Response Tobacco Current everyday tob acco user Tobacco Use:. 1 PPD every 3-4 days per day. Sex Female Patient Care team information Care Team Personnel Name: Kike Blanco MD Position: Physician Member Role: Informed Provider Address: Address: [address] Care Team Related Persons Name: KAUSHAL TAN Address: [address] [phone] Address: Home [address] [facility] [id number] Address: [address]ailing [address] [place] [phone] Name: KATLYN TAN Name: RASTA CABALLERO
--- OUTSIDE RECORDS SUMMARY | 2024-02-25 14:25 | XMS_ITS | Encounter Summary ---
Author Organization Health system Address [address] [place] [address] Care Team Providers Care Puppy Sitter Name Role Phone Unknown, Provider Primary Care Provider + [phone] Encounter Details Date Type Department Care Team (Late st Contact Info) Description 01/15/2020 Lab Requisition [facility] Pathology & Laboratory Medicine - [facility] [address] [place] [address] Pierre Moreno MD [address] [place] [address] [address] [place], [place] [address] Encounter for other general examination Social History Tobacco Use Types Packs/Day Years [...] Procedure Name Priority Date/Time Associated Diagnosis Comments SURGICAL PATHOLOGY Today 01/15/2020 8:50 EDT documented in this encounter Results * SURGICAL PATHOLOGY (01/15/2020 8:50 EDT) Final Diagnosis A. FALLOPIAN TUBES, STERILIZATION SALPINGECTOMY: - Fallopian tubes with no specific pathologic features; full cross-sections identified. 01/22/2020 5:35 EDT [facility] Attestation There was significant resident/fellow involvement in the diagnostic evaluation of this case. By the signature below, the attending physician certifies that they have personally conducted a gross and/or microscopic examination of the described specimens and rendered or confirmed the above diagnosis. 01/22/2020 5:35 EDT [facility] at 0535 Clinical History Desires sterilization 01/22/2020 5:35 EDT [facility] Gross Description A. Received in formalin labelled with proper patient identification (initials G, J) and R + L tubes are two nondesignated fallopian tube segments (5.2 cm in length and 0.9 cm in diameter, and 6.3 cm in length and 0.6 cm in diameter). The serosal surfaces are mcfadden purple, smooth, and glistening. Sectioning reveals a central pin point lumen. Tip Puncher sections of the shorter fallopian tube are submitted to include the fimbriated end, bisected, and 2 cross sections in A1 and footwear sales representative sections of the the longer fallopian tube are submitted to include fimbriated end, bisected, and 2 cross sections in A2. Rochelle Ring MD 01/18/2020 14:22 01/22/2020 5:35 EDT [facility] Resident/Virgilio w: Rochelle Ring MD 01/22/2020 5:35 EDT [facility] Performing Lab [facility] 01/22/2020 5:35 EDT [facility] Scanned Images 01/22/2020 5:35 EDT [facility] Tissue BOTH FALLOPIAN TUBES / Unknown 01/15/2020 8:50 EDT 01/16/2020 5:13 EDT Pierre Moreno MD PATHOLOGY ORDERABLES [facility] [address] [place] [address] documented in this encounter Visit Diagnoses Diagnosis Encounter for other general examination documented in this encounter Care Teams Puppy Sitter Relationship Specialty Start Date End Date Unknown, Provider, PCP - General 07/28/15 documented as of this encounter
--- OUTSIDE RECORDS SUMMARY | 2024-02-25 14:25 | XMS_ITS | Continuity of Care Document ---
Author Organization [facility] Address [address] [place] [address] Care Team Providers Care R&D Lab Technician Name Role Phone Kike Blanco Primary Care Physician Encounter [facility] Date(s): 09/16/23 - 09/16/23 [facility] [address] [place] [address] Discharge Disposition: Home or Self Care Attending Physician: Beatriz Slade DNP Admitting Physician: Beatriz Slade DNP Referring Physician: Beatriz Slade DNP Allergies, Adverse Reactions, Alerts Substance Reaction Severity Status INSECT VENOM Anaphylactic reaction Unknown Active LATEX Urticaria Unknown Active clindamycin Anaphylactic reaction Unknown Active aspirin Urticaria Unknown Active Assessment and Plan Future Appointments Diagnostic Tests Pending * Methadone and Metabolite Confirmation Panel, Urine CTOX 09/16/23 Future Scheduled Tests Laboratory* Urinalysis with Microscopic [...] Daily, # 30 tab, 2 Refill(s), Pharmacy: [facility] #[id number], 160, cm,12/09/22 7:53:00 EDT, Height/Length Dosing, 77.11, kg, 12/09/22 7:53:00 EDT, Weight Dosing Start Date: 06/28/23 Stop Date: 09/26/23 Status: Ordered methadone See Instructions, takes Methadone 155 mg's daily through the [facility] 0 Refill(s) Start Date: 11/23/22 Status: Ordered QUEtiapine 50 mg oral tablet 50 mg = 1 tab, Oral, every night at bedtime, # 30 tab, 2 Refill(s), Pharmacy: [facility] #[id number], 160, cm, 12/09/22 7:53:00 EDT, Height/Length Dosing, 77.11, kg, 12/09/22 7:53:00 EDT, WeightDosing Start Date: 06/28/23 Stop Date: 09/26/23 Status: Ordered Ritalin 20 mg oral tablet 20 mg = 1 tab, Oral, TID, # 84 tab, 0 Refill(s), Pharmacy: [facility] #[id number], 160.5, cm, 07/15/23 14:14:00 EST, Height, 82, kg, 07/15/23 14:21:00 EST, Weight Dosing Start Date: 08/05/23 Stop Date: 09/02/23 Status: Ordered Problem List Condition Confirmation Course Effective Dates Status Health St atus Informant Bipolar disorder, unspecified Confirmed Active Female stress incontinence Confirmed Active Encounter for medication management Confirmed Active Procedures Procedure Date Related Diagnosis Body Site Status delivery 1 Compl eted Ectopic Completed 1x2 Results Laboratory List Name Date Drug Screen Urine (Drug Screen Urine w/ Reflex) 09/16/23 Most recent to oldest [Reference Range]: 1 U Amph Scrn [Negative] Negative 1 (09/16/23 9:33 AM) U Benzodia Scrn [Negative] Negative (09/16/23 9:33 AM) U Cocaine Scrn [Negative] Negative (09/16/23 9:33 AM) U Katlyn Scrn [Negative] Negative (09/16/23 9:33 AM) U Opiate Scrn [Negative] Negative (09/16/23 9:33 AM) U Oxy Scrn [Negative] Negative (09/16/23 9:33 AM) U PCP Scrn [Negative] Negative (09/16/23 9:33 AM) U THC Scr [Negative] Negative (09/16/23 9:33 AM) U Methadone Scr [Negative] Positive *ABN* (09/16/23 9:33 AM) U Buprenorph Scr [Negative] Negative (09/16/23 9:33 AM) U mAMP Scr [Negative] Negative (09/16/23 9:33 AM) U TCA Scr [Negative] Negative (09/16/23 9:33 AM) 1Interpretive Data: These are unconfirmed screening [...] Physician Member Role: Informed Provider Address: Address: [address] Care Team Related Persons Name: KAUSHAL TAN Address: Alternate [address] [place], [place] [id number] Address: Home [address] [facility] [id number] Address: [address]ailing [address] [place], [place] [id number] Name: KAUSHAL TAN Address: Alternate [address] [place], [place] [phone] Address: Home [address] [facility], [id number] Address: [address]ailing [address] [place], [place] [id number] Name: KATLYN TAN Name: RASTA CABALLERO
--- OUTSIDE RECORDS SUMMARY | 2024-02-25 14:25 | XMS_ITS | Encounter Summary ---
Author Organization [facility] Address [address] [place] [address] Care Team Providers Care Vacuum Furnace Operator Name Role Phone Unknown, Provider Primary Care Provider + [phone] Encounter Details Date Type Department Care Team (Late st Contact Info) Description 01/17/2021 Lab Requisition [facility] Pathology & Laboratory Medicine - [facility] [address] [place], [place] [id number] Outr Resulting Lab, Provider Social History Tobacco [...] Procedure Name Priority Date/Time Associated Diagnosis Comments ZZCOVID-19 TEST [facility] PCR Today 01/17/2021 15:13 EDT COVID-19 TESTING Routine 01/17/2021 15:1 3 EDT documented in this encounter Results * COVID-19 TEST [facility] PCR (01/17/2021 15:13 EDT) Swab ENTIRE NASOPHARYNX / Unknown 01/17/2021 15:13 EDT 01/17/2021 21:19 EDT Provider Outr Resulting Lab MICROBIOLOGY - GENERAL ORDERABLES [facility] [address] [place] [address] * COVID-19 TESTING (01/17/2021 15:13 EDT) COVID-19 rt-PCR Result Negative Negative 01/18/2021 17:29 EDT [facility] Comment: This test has not been FDA cleared or approved. This test has been authorized by FDA under an EUA for use by authorized laboratories. This test has been authorized only for detection of nucleic acid from 2019-nCoV, not for any other viruses or pathogens. This test is only authorized for the duration of the declaration that circumstances exist justifying the authorization of emergency use of in vitro diagnostic tests for detection and/or diagnosis of 2019-nCoV under section 564(b)(1) of Act, 21 U.S.C ?? 360bbb-3(b) (1), unless the authorization is terminated or revoked sooner. Negative results do not preclude 2019-nCoV infection and should not be used as the sole basis for treatment or other patient management decisions. Negative results must be combined with clinical observations, patient history, and epidemiological information. This test was developed and its performance characteristics determined by [facility]. It has not been cleared or approved by the US Food and Drug Administration. FDA does not require this test to go through premarket FDA review. This test is used for clinical purposes. It should not be regarded as investigational or for research. This laboratory is certified under the Clinical Laboratory Improvement Amendments (CLIA) as qualified to perform high complexity clinical laboratory testing. This test is based on the [facility] COVID-19 Emergency Use Authorization (EUA) assay, with minor modification as defined by the FDA Performed on the [employer] 7 Flex RT-PCR System. Performing Lab [facility] 01/18/2021 17:29 EDT [facility] Swab 01/17/2021 15:1 3 EDT 01/17/2021 21:19 EDT Provider Outr Resulting Lab MICROBIOLOGY - GENERAL ORDERABLES [facility] [address] [place] [address] documented in this encounter Visit Diagnoses Not on filedocumented in this encounter Care Teams Vacuum Furnace Operator Relationship Specialty Start Date End Date Unknown, Provider, PCP - General 07/28/15 documented as of this encounter
--- OUTSIDE RECORDS SUMMARY | 2024-02-25 14:25 | XMS_ITS | Continuity of Care Document ---
Author Organization [facility] Address [address] [place] [address] Care Team Providers Care Geometry Tutor Name Role Phone Kike Blanco Primary Care Physician [phone] Encounter [facility] Date(s): 12/09/22 - 12/09/22 [facility] [address] [place] [address] Encounter Diagnosis Back pain(Discharge Diagnosis) - 12/09/22 Abdominal pain(Discharge Diagnosis) - 12/09/22 Rash(Discharge Diagnosis) - 12/09/22 Discharge Disposition: Home or Self Care Attending Physician: Madeline Stoddard MD Admitting Physician: Madeline Stoddard MD Allergies, Adverse Reactions, Alerts Substance Reaction Severity Status INSECT VENOM Anaphylactic reaction Unknown Active LATEX Urticaria Unknown Active clindamycin Anaphylactic reaction Unknown Active aspirin Urticaria Unknown Active Assessment and Plan Extracted from: Title:Clinical Document Author:Kaity Diaz te:12/09/22 Diagnosis: 1. Back pain Comment: Diagnosis: 2. Abdominal pain Comment: Diagnosis: 3. Rash Comment: Diagnosis: Abdominal pain Comment: Future Appointments Functional Status 12/09/22 Family Member Travel History No recent t ravel Recent Travel History No recent travel Other exposure to Infectious Disease Non e Immunizations Given and Recorded Vaccine Date Status [...] conjugate (PRP-T) vaccine 90 R ecorded Medications Bactrim DS 800 mg-160 mg oral tablet 1 tab, Oral, BID, X 7 days, # 14 tab, 0 Refill(s), 12/16/22 9:02:00 EDT, Pharmacy: [facility] #[id number], 160, cm, 12/09/22 7:53:00 EDT, Height/Length Dosing, 77.11, kg, 12/09/22 7:53:00 EDT, Weight Dosing Start Date: 12/09/22 Stop Date: 12/16/22 Status: Ordered ibuprofen 800 mg oral tablet 800 mg = 1 tab, Oral, every 8 hr, PRN as needed for pain, X 30 days, # 90 tab, 1 Refill(s), 02/07/23 9:07:00 EDT, Pharmacy: [facility] #[id number], 160, cm, 12/09/22 7:53:00 EDT, Height/Length Dosing, 77.11, kg, 12/09/22 7:53:00 EDT, Weight Dosing Start Date: 12/09/22 Stop Date: 02/07/23 Status: Ordered LaMICtal 100 mg oral tablet 100 mg = 1 tab, Oral, TID, # 90 tab, 2 Refill(s), Pharmacy: [facility] #[id number] Start Date: 11/23/22 Stop Date: 02/21/23 Status: Ordered methadone See Instructions, takes Methadone 155 mg's daily through the [facility] 0 Refill(s) Start Date: 11/23/22 Status: Ordered methylphenidate 20 mg oral tablet 20 mg = 1 tab, Oral, TID, Please fill 12/21/2022, # 84 tab, 0 Refill(s), Pharmacy: [facility] #[id number] Start Date: 11/23/22 Stop Date: 12/21/22 Status: Ordered methylphenidate 20 mg oral tablet 20 mg = 1 tab, Oral, TID, Please fill 01/18/2023, # 84 tab, 0 Refill(s), Pharmacy: [facility] #[id number] Start Date: 11/23/22 Stop Date: 12/21/22 Status: Ordered QUEtiapine 50 mg oral tablet 50 mg = 1 tab, Oral, every night at bedtime, # 30 tab, 1 Refill(s), Pharmacy: [facility] #[id number] Start Date: 11/21/22 Stop Date: 01/20/23 Status: Ordered Ritalin 20 mg oral tablet 20 mg = 1 tab, Oral, TID, # 84 tab, 0 Refill(s), Pharmacy: [facility] #[id number] Start Date: 11/23/22 Stop Date: 12/21/22 Status: Ordered Problem List Condition Confirmation Course Effective Dates Status Health St atus Informant Bipolar disorder, unspecified Confirmed Active Encounter for medication management Confirmed Active Results Laboratory List Name Date CBC w/ Diff 12/09/22 Comprehensive Metabolic Panel 12/09/22 Automated Diff 12/09/22 Most recent to oldest [Reference Range]: 1 WBC [5.0-10.0 x10^3/mcL] 8.7 x10^3/mcL (12/09/22 8:05 AM) RBC [4.1-5.3 x10^6/mcL] 4.9 x10^6/mcL (12/09/22 8:05 AM) Neutro Auto [40.0-75.0 %] 43.0 % (12/09/22 8:05 AM) Lymph Auto [20.0-50.0 %] 43.0 % (12/09/22 8:05 AM) [place] Auto [2.0-15.0 %] 8.8 % (12/09/22 8:05 AM) Basophil Auto [0.0-1.0 %] 0.6 % (12/09/22 8:05 AM) BUN [7-18 mg/dL] 8 mg/dL (12/09/22 8:05 AM) Glucose Level [74-106 mg/dL] 84 mg/dL (12/09/22 8:05 AM) Potassium Level [3.5-5.1 mmol/L] 4.0 mmo l/L (12/09/22 8:05 AM) MCV [80.0-96.0 fL] 87.8 fL (12/09/22 8:05 AM) AST [15-37 unit/L] 14 unit/L *LOW* (12/09/22 8:05 AM) ALT [14-59 unit/L] 20 unit/L (12/09/22 8:05 AM) MCHC [31.0-35.0 g/dL] 33.8 g/dL (12/09/22 8:05 AM) Sodium Level [136-145 mmol/L] 140 mmol/L (12/09/22 8:05 AM) Hct [37.0-47.0 %] 43.2 % (12/09/22 8:05 AM) Calcium Level [8.5-10.1 mg/dL] 8.8 mg/dL (12/09/22 8:05 AM) Albumin Level [3.4-5.0 g/dL] 3.5 g/dL (12/09/22 8:05 AM) Protein Total [6.4-8.2 g/dL] 7.0 g/dL (12/09/22 8:05 AM) MCH [26.0-32.0 pg] 29.7 pg (12/09/22 8:05 AM) Neutro Absolute 3.8 x10^3/mcL *NA* (12/09/22 8:05 AM) Bilirubin Total [0.2-1.0 mg/dL] 0.1 mg/d L *LOW* (12/09/22 8:05 AM) Hgb [12.0-16.0 g/dL] 14.6 g/dL (12/09/22 8:05 AM) Alk Phos [46-146 unit/L] 121 unit/L (12/09/22 8:05 AM) Platelets [130-450 x10^3/mcL] 468 x10^3/ mcL *HI* (12/09/22 8:05 AM) CO2 [21-32 mmol/L] 31 mmol/L (12/09/22 8:05 AM) eGFR Non-AA [>=60] 97 (12/09/22 8:05 AM) eGFR AA [>=60] 97 (12/09/22 8:05 AM) Chloride Level [98-107 mmol/L] 103 mmol/ L (12/09/22 8:05 AM) RDW-CV [11.5-14.5 %] 12.3 % (12/09/22 8:05 AM) Imm Gran Auto [0.0-0.9 %] 0.2 % (12/09/22 8:05 AM) Slide Review Not Indicated (12/09/22 8:05 AM) Creatinine Level [0.55-1.02 mg/dL] 0.82 mg/dL (12/09/22 8:05 AM) Eos, Auto [1.0-6.0 %] 4.4 % (12/09/22 8:05 AM) Vital Signs Most recent to oldest [Reference Range]: 1 Temperature Temporal Artery [36-38 Deg C ] 36.7 Deg C (12/09/22 7:41 AM) Peripheral Pulse Rate [60-100 bpm] 86 bp m (12/09/22 7:41 AM) Respiratory Rate [12-24 br/min] 17 br/mi n (12/09/22 7:41 AM) Blood Pressure [90-140/60-90 mmHg] 140/1 10mmHg (12/09/22 7:41 AM) Weight Dosing 77.11 kg (12/09/22 7:53 AM) Weight Estimated 77.11 kg (12/09/22 7:41 AM) Height/Length Dosing 160.000 cm (12/09/22 7:53 AM) Height/Length Estimated 160.000 cm (12/09/22 7:41 AM) Social History Social History Type Response Tobacco Current everyday tob acco user Tobacco Use:. 1/2 PPD to 1 PPD per day. Sex Female Hospital Discharge Instructions Patient Education 12/09/2022 08:03:15 Acute Back Pain, Adult Acute Back Pain, Adult Acute back pain is sudden and usually short-lived. It is often caused by an injury to the muscles and tissues in the back. The injury may result from: ??? A muscle, tendon, or ligament getting overstretched or torn. Ligaments are tissues that connectbones to each other. Lifting something improperly can cause a back strain. ??? Wear and tear (degeneration) of the spinal disks. Spinal disks are circular tissue that providecushioning between the bones of the spine (vertebrae). ??? Twisting motions, such as while playing sports or doing yard work. ??? A hit to the back. ??? Arthritis. You may have a physical exam, lab tests, and imaging tests to find the cause of your pain. Acute back pain usually goes away with rest and home care. Follow these instructions at home: Managing pain, stiffness, and swelling ??? Take jpnw-gss-nevofcs and prescription medicines only as told by your health care provider. Treatment may include medicines for pain and inflammation that are taken by mouth or applied to the skin, or muscle relaxants. ??? Your health care provider may recommend applying ice during the first 24???48 hours after your pain starts. To do this: ??? Put ice in a plastic bag. ??? Place a towel between your skin and the bag. ??? Leave the ice on for 20 minutes, 2???3 times a day. ??? Remove the ice if your skin turns bright red. This is very important. If you cannot feel pain, heat, or cold, you have a greater risk of damage to the area. ??? If directed, apply heat to the affected area as often as told by your health care provider. Usethe heat source that your health care provider recommends, such as a moist heat pack or a heating pad. ??? Place a towel between your skin and the heat source. ??? Leave the heat on for 20???30 minutes. ??? Remove the heat if your skin turns bright red. This is especially important if you are unable to feel pain, heat, or cold. You have a greater risk of getting burned. Activity ??? Do not stay in bed. Staying in bed for more than 1???2 days can delay your recovery. ??? Sit up and stand up straight. Avoid leaning forward when you sit or hunching over when you stand. ??? If you work at a desk, sit close to it so you do not need to lean over. Keep your chin tucked in. Keep your neck drawn back, and keep your elbows bent at a 90-degree angle (right angle). ??? Sit high and close to the steering wheel when you drive. Add lower back (lumbar) support to your car seat, if needed. ??? Take short walks on even surfaces as soon as you are able. Try to increase the length of time you walk each day. ??? Do not sit, drive, or spindle frame carver one place for more than 30 minutes at a time. Sitting or standing for long periods of time can put stress on your back. ??? Do not drive or use heavy machinery while taking prescription pain medicine. ??? Use proper lifting techniques. When you bend and lift, use positions that put less stress on your back: ??? Bend your knees. ??? Keep the load close to your body. ??? Avoid twisting. ??? Exercise regularly as told by your health care provider. Exercising helps your back heal fasterand helps prevent back injuries by keeping muscles strong and flexible. ??? Work with a physical therapist to make a safe exercise program, as recommended by your health care provider. Do any exercises as told by your physical therapist. Lifestyle ??? Maintain a healthy weight. Extra weight puts stress on your back and makes it difficult to havegood posture. ??? Avoid activities or situations that make you feel anxious or stressed. Stress and anxiety increase muscle tension and can make back pain worse. Learn ways to manage anxiety and stress, such as through exercise. General instructions ??? Sleep on a firm mattress in a comfortable position. Try lying on your side with your knees slightly bent. If you lie on your back, put a pillow under your knees. ??? Keep your head and neck in a straight line with your spine (neutral position) when using electronic equipment like smartphones or pads. To do this: ??? Raise your smartphone or pad to look at it instead of bending your head or neck to look down. ??? Put the smartphone or pad at the level of your face while looking at the screen. ??? Follow your treatment plan as told by your health care provider. This may include: ??? Cognitive or behavioral therapy. ??? Acupuncture or massage therapy. ??? Meditation or yoga. Contact a health care provider if: ??? You have pain that is not relieved with rest or medicine. ??? You have increasing pain going down into your legs or buttocks. ??? Your pain does not improve after 2 weeks. ??? You have pain at night. ??? You lose weight without trying. ??? You have a fever or chills. ??? You develop nausea or vomiting. ??? You develop abdominal pain. Get help right away if: ??? You develop new bowel or bladder control problems. ??? You have unusual weakness or numbness in your arms or legs. ??? You feel faint. These symptoms may represent a serious problem that is an emergency. Do not wait to see if the symptoms will go away. Get medical help right away. Call your local emergency services (911 in the [place] Do not drive yourself to the hospital. Summary ??? Acute back pain is sudden and usually short-lived. ??? Use proper lifting techniques. When you bend and lift, use positions that put less stress on your back. ??? Take trms-ipb-gvqixla and prescription medicines only as told by your health care provider, andapply heat or ice as told. This information is not intended to replace advice given to you by your health care provider. Make sure you discuss any questions you have with your health care provider. Document Revised: 07/28/2021 Document Reviewed: 07/28/2021 [employer] Patient Education ?? 2022 [employer]. 12/09/2022 08:03:10 Abdominal Pain, Adult Abdominal Pain, Adult Pain in the abdomen (abdominal pain) can be caused by many things. Often, abdominal pain is not serious and it gets better with no treatment or by being treated at home. However, sometimes abdominal pain is serious. Your health care provider will ask questions about your medical history and do a physical exam to try to determine the cause of your abdominal pain. Follow these instructions at home: Medicines ??? Take rana-htk-goopmxo and prescription medicines only as told by your health care provider. ??? Do not take a laxative unless told by your health care provider. General instructions ??? Watch your condition for any changes. ??? Drink enough fluid to keep your urine pale yellow. ??? Keep all follow-up visits as told by your health care provider. This is important. Contact a health care provider if: ??? Your abdominal pain changes or gets worse. ??? You are not hungry or you lose weight without trying. ??? You are constipated or have diarrhea for more than 2???3 days. ??? You have pain when you urinate or have a bowel movement. ??? Your abdominal pain wakes you up at night. ??? Your pain gets worse with meals, after eating, or with certain foods. ??? You are vomiting and cannot keep anything down. ??? You have a fever. ??? You have blood in your urine. Get help right away if: ??? Your pain does not go away as soon as your health care provider told you to expect. ??? You cannot stop vomiting. ??? Your pain is only in areas of the abdomen, such as the right side or the left lower portion of the abdomen. Pain on the right side could be caused by appendicitis. ??? You have bloody or black stools, or stools that look like tar. ??? You have severe pain, cramping, or bloating in your abdomen. ??? You have signs of dehydration, such as: ??? Dark urine, very little urine, or no urine. ??? Cracked lips. ??? Dry mouth. ??? Sunken eyes. ??? Sleepiness. ??? Weakness. ??? You have trouble breathing or chest pain. Summary ??? Often, abdominal pain is not serious and it gets better with no treatment or by being treated at home. However, sometimes abdominal pain is serious. ??? Watch your condition for any changes. ??? Take ezhg-eau-lhddjwc and prescription medicines only as told by your health care provider. ??? Contact a health care provider if your abdominal pain changes or gets worse. ??? Get help right away if you have severe pain, cramping, or bloating in your abdomen. This information is not intended to replace advice given to you by your health care provider. Make sure you discuss any questions you have with your health care provider. Document Revised: 06/24/2020 Document Reviewed: 09/14/2019 [employer] Patient Education ?? 2022 [employer]. 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 PT denies urinary symptoms, last BM yesterday. PT statse hx of kidney stones but states it feels different. History Of Present Illness: Patient reports left flank pain??radiating to her left??abdomen??patient reports a history of kidney stones.?Pain??patient points to??left low back??on exam seems to be the left SI joint although patient also??endorsing??above as well??also left??sided??abdominal pain. ??Patient initially had told??nursing that she had right flank pain.?? No fever no chills no ear nose or throat pain no chest pain no cough??no nausea no vomiting??no extremity edema.?? Patient denies risk of statingshe has had both tubes removed in the past. Review of Systems: see hpi for ros Physical Exam Vitals & Measurements T:??36.7?C ??(Temporal Artery)?? HR:??86??(Peripheral)?? RR:??17?? BP:??140/110?? SpO2:??100%?? HT:??160.000??cm?? WT:??77.11??kg??(Estimated)?? Pain Score:??0?? O2 Therapy:??Room air?? General: Alert and oriented, well nourished,?No??acute distress Eye: PER?Normal??conjunctiva,??No??scleral icterus HENT: Normocephalic,??nontraumatic??Normal hearing Lungs: Clear to auscultation,?Non-labored?? respiration Heart:?Normal?? rate,?Regular??rhythm,?No??murmur,?No??gallop,?No??edema Chest: wall excursion wnl no abnormal movements no obvious deformities Abdomen: Soft, tenderness left-sided??left lateral upper and left lateral lower, non-distended,?No??masses Back:??Left SI joint area tenderness??moderate mild on??left flank area Musculoskeletal:?Normal?? range of motion and strength,?No??tenderness,?No??swelling Skin: Skin is warm, dry and pink,??positive??scattered rashes on fingers of hand and 1 on right??upper thigh Neurologic: Awake, alert and oriented X4 Psychiatric: Cooperative, appropriate mood and affect Medical Decision Making: For MDM please see under assessment and plan Procedure No Qualifying Data Assessment/Plan 1.??Back pain??M54.9 Patient??much improved here in the emergency department after 50 mg of IV Toradol and 1 L of IV fluids.?? Discussed with her that her renal colic CT scan is negative??this possibly could be SI joint pain or??perhaps an ovarian cyst??that is not showing up on??CT scan.?? Patient will??maximize ibuprofen and Tylenol and will try heat to the area. Ordered: ibuprofen 800 mg oral tablet, 800 mg = 1 tab, Oral, every 8 hr, PRN as needed for pain, X 30 days, # 90 tab, 1 Refill(s), 02/07/23 9:07:00 EDT, Pharmacy: [facility] #[id number], 160, cm, 12/09/22 7:53:00 EDT, Height/Length Dosing, 77.11, kg, 12/09/22 7:53:00 EDT, Weight Dosing ?? 2.??Abdominal pain??R10.9 See above. Ordered: ibuprofen 800 mg oral tablet, 800 mg = 1 tab, Oral, every 8 hr, PRN as needed for pain, X 30 days, # 90 tab, 1 Refill(s), 02/07/23 9:07:00 EDT, Pharmacy: [facility] #[id number], 160, cm, 12/09/22 7:53:00 EDT, Height/Length Dosing, 77.11, kg, 12/09/22 7:53:00 EDT, Weight Dosing ?? 3.??Rash??R21 Hand and??upper thigh likely??MRSA we will try patient on Bactrim DS 1 tablet twice a day for 7 days. Ordered: ibuprofen 800 mg oral tablet, 800 mg = 1 tab, Oral, every 8 hr, PRN as needed for pain, X 30 days, # 90 tab, 1 Refill(s), 02/07/23 9:07:00 EDT, Pharmacy: [facility] #[id number], 160, cm, 12/09/22 7:53:00 EDT, Height/Length Dosing, 77.11, kg, 12/09/22 7:53:00 EDT, Weight Dosing ?? Orders: Bactrim DS 800 mg-160 mg oral tablet, 1 tab, Oral, BID, X 7 days, # 14 tab, 0 Refill(s), 12/16/22 9:02:00 EDT, Pharmacy: [facility] #[id number], 160, cm, 12/09/22 7:53:00 EDT, Height/Length Dosing, 77.11, kg, 12/09/22 7:53:00 EDT, Weight Dosing Discharge Patient, 12/09/22 9:02:00 EDT, Home Independently, Constant Indicator Patient Education Acute Back Pain, Adult Abdominal Pain, Adult Follow Up With When Contact Information Follow up with primary care provider Within 1 to 2 weeks Additional Instructions: Medication Reconciliation New Prescription ibuprofen (ibuprofen 800 mg oral tablet)1 tab Oral (given by mouth) every 8 hours as needed as needed for pain for 30 Days. Refills: 1. ?? sulfamethoxazole-trimethoprim (Bactrim DS 800 mg-160 mg oral tablet)1 tab Oral (given by mouth) 2 times a day for 7 Days. Refills: 0. ?? Unchanged lamoTRIgine (LaMICtal 100 mg oral tablet)1 tab Oral (given by mouth) 3 times a day for 30 Days. Refills: 2. ?? methadonetakes Methadone 155 mg's daily through the [facility].. ?? methylphenidate (methylphenidate 20 mg oral tablet)1 tab Oral (given by mouth) 3 times a day for 28Days. Please fill 12/21/2022. Refills: 0. ?? methylphenidate (methylphenidate 20 mg oral tablet)1 tab Oral (given by mouth) 3 times a day for 28Days. Please fill 01/18/2023. Refills: 0. ?? methylphenidate (Ritalin 20 mg oral tablet)1 tab Oral (given by mouth) 3 times a day for 28 Days. Refills: 0. ?? QUEtiapine (QUEtiapine 50 mg oral tablet)1 tab Oral (given by mouth) every night at bedtime for 30 Days. Refills: 1. Problem List/Past Medical History Ongoing Bipolar disorder, unspecified Encounter for medication management Morbid obesity Historical No qualifying data Medication Administration Given 0.9% NaCl bolus, 1 L, IV Bolus Toradol, 15 mg, IV Push Allergies INSECT VENOM??(Anaphylactic reaction) LATEX??(Urticaria) aspirin??(Urticaria) clindamycin??(Anaphylactic reaction) Social History Alcohol Never Electronic Cigarette/Vaping Electronic Cigarette Use: Never. Employment/School Unemployed Home/Environment Lives with Children. Nutrition/Health Caffeine intake amount: soda daily. 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 Tobacco Current everyday tobacco user Tobacco Use:. 1/2 PPD to 1 PPD per day. Lab Results CBC and Differential?? LATEST RESULTS?? WBC?? 12/09/22 08:05?? 8.7?? RBC?? 12/09/22 08:05?? 4.9?? Hgb?? 12/09/22 08:05?? 14.6?? Hct?? 12/09/22 08:05?? 43.2?? MCV?? 12/09/22 08:05?? 87.8?? MCH?? 12/09/22 08:05?? 29.7?? MCHC?? 12/09/22 08:05?? 33.8?? RDW-CV?? 12/09/22 08:05?? 12.3?? Platelets?? 12/09/22 08:05?? 468 ??High?? Neutro Auto?? 12/09/22 08:05?? 43.0?? Lymph Auto?? 12/09/22 08:05?? 43.0?? [place] Auto?? 12/09/22 08:05?? 8.8?? Eos, Auto?? 12/09/22 08:05?? 4.4?? Basophil Auto?? 12/09/22 08:05?? 0.6?? Imm Gran Auto?? 12/09/22 08:05?? 0.2?? Neutro Absolute?? 12/09/22 08:05?? 3.8?? Slide Review?? 12/09/22 08:05?? Not Indicated? Routine Chemistry?? LATEST RESULTS?? Sodium Level?? 12/09/22 08:05?? 140?? Potassium Level?? 12/09/22 08:05?? 4.0?? Chloride Level?? 12/09/22 08:05?? 103?? CO2?? 12/09/22 08:05?? 31?? Alk Phos?? 12/09/22 08:05?? 121?? AST?? 12/09/22 08:05?? 14 ??Low?? ALT?? 12/09/22 08:05?? 20?? BUN?? 12/09/22 08:05?? 8?? Glucose Level?? 12/09/22 08:05?? 84?? Creatinine Level?? 12/09/22 08:05?? 0.82?? eGFR AA?? 12/09/22 08:05?? 97?? eGFR Non-AA?? 12/09/22 08:05?? 97?? Calcium Level?? 12/09/22 08:05?? 8.8?? Protein Total?? 12/09/22 08:05?? 7.0?? Albumin Level?? 12/09/22 08:05?? 3.5?? Bilirubin Total?? 12/09/22 08:05?? 0.1 ??Low? Electronically Signed on 12/09/22 09:08 AM Madeline Stoddard MD Emergency department Discharge instructions * Madeline Stoddard MD: PERFORM Event Display: ED Discharge Information Authored Date: [id number] VAISHALI TAN :1990 Age:32 years Sex:Female Visit Date:12/09/2022 Primary Care Physician: Kike Blanco MD Discharge Instructions We would like to thank you for allowing us to assist you with your healthcare needs. The following includes patient education materials and information regarding your injury/illness. Diagnosis from Today's Visit Back pain Abdominal pain Rash Discharge Vitals Temperature??(Temporal Artery) 98.1 ??F (36.7 ??C) Heart Rate??(Peripheral) 86 Respiratory Rate?? 17 Blood Pressure?? 140/110?? Height?? 62.99 in (160.000 cm) Weight??(Estimated) 170.03 lb (77.11 kg) Allergies INSECT VENOM??(Anaphylactic reaction) LATEX??(Urticaria) aspirin??(Urticaria) clindamycin??(Anaphylactic reaction) What to Do Next Instructions from Your Care Team For your rash take??Bactrim??DS??(trimethoprim/sulfamethoxazole) 1 tablet twice a day for 7 days. You may take up to 800 mg of Motrin, Advil??(ibuprofen)??every 8 hours as needed for pain or discomfort??and or??up to??1000 mg??of Tylenol??(acetaminophen) every 6 hours as needed??for pain or discomfort for maximum 4000 mg in 24 hours or you may permanently hurt your liver. ??If you worsen return to the emergency department or see primary care provider. You Need to Schedule the Following Appointments Follow Up with??Follow up with primary care provider When:??Within 1 to 2 weeks Upcoming Scheduled Appointments Wednesday Oct. 11, 2023 10:45 AM EDT ?? You were treated today on an emergency [...] How Much When Why Instructions Next Dose New sulfamethoxazole-trimethoprim (Bactrim DS 800 mg-160 mg oral tablet) 1 tab Oral (given by mouth) 2 times a day Duration: [address] [id number] #[id number] Unchanged lamoTRIgine (LaMICtal 100 mg oral tablet) 1 tab Oral (given by mouth) 3 times a day ADHD (attention deficit hyperactivity disorder) Duration: 30 Days Unchanged methadone See instructions takes Methadone 155 mg's daily through the [facility]. ?? Unchanged methylphenidate (methylphenidate 20 mg oral tablet) 1 tab Oral (given by mouth) 3 times a day Duration: 28 Days Please fill 2022 ?? Unchanged methylphenidate (methylphenidate 20 mg oral tablet) 1 tab Oral (given by mouth) 3 times a day Duration: 28 Days Please fill 2022 ?? Unchanged methylphenidate (Ritalin 20 mg oral tablet) 1 tab Oral (given by mouth) 3 times a day ADHD (attention deficit hyperactivity disorder) Duration: 28 Days Unchanged QUEtiapine (QUEtiapine 50 mg oral tablet) 1 tab Oral (given by mouth) Every night at bedtime ADHD (attention deficit hyperactivity disorder) Duration: [address] [facility] [id number] #[id number]: [address] [phone] Education Materials Acute Back Pain, Adult Acute back pain is sudden and usually short-lived. It is often caused by an injury to the muscles and tissues in the back. The injury may result from: ? A muscle, tendon, or ligament getting overstretched or torn. Ligaments are tissues that connect bones to each other. Lifting something improperly can cause a back strain. ? Wear and tear (degeneration) of the spinal disks. Spinal disks are circular tissue that provide cushioning between the bones of the spine (vertebrae). ? Twisting motions, such as while playing sports or doing yard work. ? A hit to the back. ? Arthritis. You may have a physical exam, lab tests, and imaging tests to find the cause of your pain. Acute back pain usually goes away with rest and home care. Follow these instructions at home: Managing pain, stiffness, and swelling ? Take iobe-fxo-pjnncbm and prescription medicines only as told by your health care provider. Treatment may include medicines for pain and inflammation that are taken by mouth or applied to the skin, or muscle relaxants. ? Your health care provider may recommend applying ice during the first 24???48 hours after your painstarts. To do this: ? Put ice in a plastic bag. ? Place a towel between your skin and the bag. ? Leave the ice on for 20 minutes, 2???3 times a day. ? Remove the ice if your skin turns bright red. This is very important. If you cannot feel pain, heat, or cold, you have a greater risk of damage to the area. ? If directed, apply heat to the affected area as often as told by your health care provider. Use theheat source that your health care provider recommends, such as a moist heat pack or a heating pad. ? Place a towel between your skin and the heat source. ? Leave the heat on for 20???30 minutes. ? Remove the heat if your skin turns bright red. This is especially important if you are unable to feel pain, heat, or cold. You have a greater risk of getting burned. Activity ? Do not stay in bed. Staying in bed for more than 1???2 days can delay your recovery. ? Sit up and stand up straight. Avoid leaning forward when you sit or hunching over when you stand. ? If you work at a desk, sit close to it so you do not need to lean over. Keep your chin tucked in. Keep your neck drawn back, and keep your elbows bent at a 90-degree angle (right angle). ? Sit high and close to the steering wheel when you drive. Add lower back (lumbar) support to your car seat, if needed. ? Take short walks on even surfaces as soon as you are able. Try to increase the length of time you walk each day. ? Do not sit, drive, or spindle frame carver one place for more than 30 minutes at a time. Sitting or standing for long periods of time can put stress on your back. ? Do not drive or use heavy machinery while taking prescription pain medicine. ? Use proper lifting techniques. When you bend and lift, use positions that put less stress on your back: ? Bend your knees. ? Keep the load close to your body. ? Avoid twisting. ? Exercise regularly as told by your health care provider. Exercising helps your back heal faster andhelps prevent back injuries by keeping muscles strong and flexible. ? Work with a physical therapist to make a safe exercise program, as recommended by your health care provider. Do any exercises as told by your physical therapist. Lifestyle ? Maintain a healthy weight. Extra weight puts stress on your back and makes it difficult to have good posture. ? Avoid activities or situations that make you feel anxious or stressed. Stress and anxiety increase muscle tension and can make back pain worse. Learn ways to manage anxiety and stress, such as through exercise. General instructions ? Sleep on a firm mattress in a comfortable position. Try lying on your side with your knees slightlybent. If you lie on your back, put a pillow under your knees. ? Keep your head and neck in a straight line with your spine (neutral position) when using electronicequipment like smartphones or pads. To do this: ? Raise your smartphone or pad to look at it instead of bending your head or neck to look down. ? Put the smartphone or pad at the level of your face while looking at the screen. ? Follow your treatment plan as told by your health care provider. This may include: ? Cognitive or behavioral therapy. ? Acupuncture or massage therapy. ? Meditation or yoga. Contact a health care provider if: ? You have pain that is not relieved with rest or medicine. ? You have increasing pain going down into your legs or buttocks. ? Your pain does not improve after 2 weeks. ? You have pain at night. ? You lose weight without trying. ? You have a fever or chills. ? You develop nausea or vomiting. ? You develop abdominal pain. Get help right away if: ? You develop new bowel or bladder control problems. ? You have unusual weakness or numbness in your arms or legs. ? You feel faint. These symptoms may represent a serious problem that is an emergency. Do not wait to see if the symptoms will go away. Get medical help right away. Call your local emergency services (911 in the [place] Do not drive yourself to the hospital. Summary ? Acute back pain is sudden and usually short-lived. ? Use proper lifting techniques. When you bend and lift, use positions that put less stress on your back. ? Take ksew-oix-iluyqax and prescription medicines only as told by your health care provider, and apply heat or ice as told. This information is not intended to replace advice given to you by your health care provider. Make sure you discuss any questions you have with your health care provider. Document Revised: 07/28/2021 Document Reviewed: 07/28/2021 [employer] Patient Education ?? 2022 [employer] Abdominal Pain, Adult Pain in the abdomen (abdominal pain) can be caused by many things. Often, abdominal pain is not serious and it gets better with no treatment or by being treated at home. However, sometimes abdominal pain is serious. Your health care provider will ask questions about your medical history and do a physical exam to try to determine the cause of your abdominal pain. Follow these instructions at home: Medicines ? Take kyyl-yem-wnnljdf and prescription medicines only as told by your health care provider. ? Do not take a laxative unless told by your health care provider. General instructions ? Watch your condition for any changes. ? Drink enough fluid to keep your urine pale yellow. ? Keep all follow-up visits as told by your health care provider. This is important. Contact a health care provider if: ? Your abdominal pain changes or gets worse. ? You are not hungry or you lose weight without trying. ? You are constipated or have diarrhea for more than 2???3 days. ? You have pain when you urinate or have a bowel movement. ? Your abdominal pain wakes you up at night. ? Your pain gets worse with meals, after eating, or with certain foods. ? You are vomiting and cannot keep anything down. ? You have a fever. ? You have blood in your urine. Get help right away if: ? Your pain does not go away as soon as your health care provider told you to expect. ? You cannot stop vomiting. ? Your pain is only in areas of the abdomen, such as the right side or the left lower portion of the abdomen. Pain on the right side could be caused by appendicitis. ? You have bloody or black stools, or stools that look like tar. ? You have severe pain, cramping, or bloating in your abdomen. ? You have signs of dehydration, such as: ? Dark urine, very little urine, or no urine. ? Cracked lips. ? Dry mouth. ? Sunken eyes. ? Sleepiness. ? Weakness. ? You have trouble breathing or chest pain. Summary ? Often, abdominal pain is not serious and it gets better with no treatment or by being treated at home. However, sometimes abdominal pain is serious. ? Watch your condition for any changes. ? Take tcwm-chj-jsvvxec and prescription medicines only as told by your health care provider. ? Contact a health care provider if your abdominal pain changes or gets worse. ? Get help right away if you have severe pain, cramping, or bloating in your abdomen. This information is not intended to replace advice given to you by your health care provider. Make sure you discuss any questions you have with your health care provider. Document Revised: 06/24/2020 Document Reviewed: 09/14/2019 [employer] Patient Education ?? 2022 [employer] Tests Performed Medications and Immunizations Administered Given 0.9% NaCl bolus, 1 L, IV Bolus Toradol, 15 mg, IV Push Lab Test Name Test Result Date/Time WBC 8.7 x10^3/mcL 12/09/2022 08:05 EDT RBC 4.9 x10^6/mcL 12/09/2022 08:05 EDT Hgb 14.6 g/dL 12/09/2022 08:05 EDT Hct 43.2 % 12/09/2022 08:05 EDT MCV 87.8 fL 12/09/2022 08:05 EDT MCH 29.7 pg 12/09/2022 08:05 EDT MCHC 33.8 g/dL 12/09/2022 08:05 EDT RDW-CV 12.3 % 12/09/2022 08:05 EDT Platelets 468 x10^3/mcL 12/09/2022 08:05 EDT Neutro Auto 43.0 % 12/09/2022 08:05 EDT Lymph Auto 43.0 % 12/09/2022 08:05 EDT [place] Auto 8.8 % 12/09/2022 08:05 EDT Eos, Auto 4.4 % 12/09/2022 08:05 EDT Basophil Auto 0.6 % 12/09/2022 08:05 EDT Imm Gran Auto 0.2 % 12/09/2022 08:05 EDT Neutro Absolute 3.8 x10^3/mcL 12/09/2022 08:05 EDT Slide Review Not Indicated 12/09/2022 08:05 EDT Sodium Level 140 mmol/L 12/09/2022 08:05 EDT Potassium Level 4.0 mmol/L 12/09/2022 08:05 EDT Chloride Level 103 mmol/L 12/09/2022 08:05 EDT CO2 31 mmol/L 12/09/2022 08:05 EDT Alk Phos 121 unit/L 12/09/2022 08:05 EDT AST 14 unit/L 12/09/2022 08:05 EDT ALT 20 unit/L 12/09/2022 08:05 EDT BUN 8 mg/dL 12/09/2022 08:05 EDT Glucose Level 84 mg/dL 12/09/2022 08:05 EDT Creatinine Level 0.82 mg/dL 12/09/2022 08:05 EDT eGFR AA 97 12/09/2022 08:05 EDT eGFR Non-AA 97 12/09/2022 08:05 EDT Calcium Level 8.8 mg/dL 12/09/2022 08:05 EDT Protein Total 7.0 g/dL 12/09/2022 08:05 EDT Albumin Level 3.5 g/dL 12/09/2022 08:05 EDT Bilirubin Total 0.1 mg/dL 12/09/2022 08:05 EDT Patient/Greenhouse Superintendent Signature Patient Name:VAISHALI TAN I have received this information and my questions have been answered. Patient/Greenhouse Superintendent Name: Patient/Greenhouse Superintendent Signature: Relationship to Patient: Witness Name/Signature: Date: Electronically Signed on: 12/09/2022 09:04 EDTSigned by:AMS Discharge summary * Emily, Kaity M: PERFORM Event Display: Discharge Note Authored Date: * Kaity Diaz M: PERFORM Event Display: Discharge Note Authored Date: Diagnosis: 1. Back pain Comment: Diagnosis: 2. Abdominal pain Comment: Diagnosis: 3. Rash Comment: Diagnosis: Abdominal pain Comment: Electronically Signed on 12/09/22 09:10 AM Kaity Diaz Patient Care team information Care Team Personnel Name: Kike Blanco MD Position: Physician Member Role: Informed Provider Address: Address: [address] Name: Jess Marin Position: Nurse Member Role: ED Nurse Name: Madeline Stoddard MD Position: Physician Member Role: ED Physician Address: Address: [address] [place] [address] Care Team Related Persons Name: KATLYN TAN Name: ANTONIA BELLE Address: Alternate [address] [place] [phone] Address: Home [address] [place] [phone]
--- OUTSIDE RECORDS SUMMARY | 2024-02-25 14:25 | XMS_ITS | Encounter Summary ---
Author Organization [facility] Address [address] [place] [address] Care Team Providers Care Pilot Plant Operator Name Role Phone Unknown, Provider Primary Care Provider + [phone] Encounter Details Date Type Department Care Team (Late st Contact Info) Description 08/12/2020 Lab Requisition [place] [facility] - [facility] [address], [place] [id number] Outr Resulting Lab, Provider Social History Tobacco [...] Comments ZZCOVID-19 TEST [facility] PCR Today 08/12/2020 10:03 EDT COVID-19 TESTING Routine 08/12/2020 10:0 3 EDT documented in this encounter Results * COVID-19 TEST [facility] PCR (08/12/2020 10:03 EDT) Swab ENTIRE NASOPHARYNX / Unknown 08/12/2020 10:03 EDT 08/12/2020 16:21 EDT Provider Outr Resulting Lab MICROBIOLOGY - GENERAL ORDERABLES [facility] [address] [place] [address] * COVID-19 TESTING (08/12/2020 10:03 EDT) COVID-19 rt-PCR Result Negative Negative 08/13/2020 13:20 EDT [facility] Comment: This test has [...] developed and its performance characteristics determined by [facility]. It has not been cleared or approved [...] testing. This test is based on the [facility] COVID-19 Emergency Use Authorization (EUA) assay, with minor modification as defined by the FDA Performed on the [employer] 7 Pro RT-PCR System. Performing Lab [facility] Lab 08/13/2020 13:20 EDT [facility] Swab 08/12/2020 10:0 3 EDT 08/12/2020 16:21 EDT Provider Outr Resulting Lab MICROBIOLOGY - GENERAL ORDERABLES [facility] [address] [place] [address] documented in this encounter Visit Diagnoses Not on filedocumented in this encounter Care Teams Pilot Plant Operator Relationship Specialty Start Date End Date Unknown, Provider, PCP - General 07/28/15 documented as of this encounter
--- OUTSIDE RECORDS SUMMARY | 2024-02-25 14:25 | XMS_ITS | Encounter Summary ---
Author Organization [facility] Address [address] [place] [address] Care Team Providers Care Kaiawhina Kura [place] Name Role Phone Unknown, Provider Primary Care Provider + [phone] Encounter Details Date Type Department Care Team (Late st Contact Info) Description 07/18/2020 Lab Requisition [facility] & Laboratory Medicine - [address] [id number] Outr Resulting Lab, Provider Social History Tobacco [...] Comments ZZCOVID-19 TEST [facility] PCR Today 07/18/2020 8:34 EST COVID-19 TESTING Routine 07/18/2020 8:34 EST documented in this encounter Results * COVID-19 TEST [facility] PCR (07/18/2020 8:34 EST) Swab ENTIRE NASOPHARYNX / Unknown 07/18/2020 8:34 EST 07/18/2020 16:23 EST Provider Outr Resulting Lab MICROBIOLOGY - GENERAL ORDERABLES [facility] [address] [place] [address] * COVID-19 TESTING (07/18/2020 8:34 EST) COVID-19 rt-PCR Result Negative Negative 07/19/2020 11:42 EST [facility] Comment: This test has not [...] clinical observations, patient history, and epidemiological information. Testing was performed using the kristen SARS-CoV-2 assay ([employer] on the Kristen 6800 System Performing Lab [employer]en [address] [facility] Lab 07/19/2020 11:42 EST [facility] Swab 07/18/2020 8:34 EST 07/18/2020 16:23 EST Provider Outr Resulting Lab MICROBIOLOGY - GENERAL ORDERABLES [facility] [address] [place] [address] documented in this encounter Visit Diagnoses Not on filedocumented in this encounter Care Teams Kaiawhina Kura [place] Relationship Specialty Start Date End Date Unknown, Provider, PCP - General 07/28/15 documented as of this encounter
--- OUTSIDE RECORDS SUMMARY | 2024-02-25 14:25 | XMS_ITS | Continuity of Care Document ---
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 tobacco, such as cigarettes, e- cigarettes, and chewing tobacco. These can delay healing. If you need help quitting, ask your doctor. ? Keep all follow-up visits as told by your doctor. This is important. Contact a doctor if: ? Your condition does not get better. ? Your condition gets worse. ? You have a fever or chills. ? Your burn feels warm to the touch. ? You have more redness, swelling, or pain on your burn. ? Your burn looks different or starts to have black or red spots on it. ? Your pain does not get better with medicine. Get help right away if: ? You have more fluid, blood, or pus coming from your burn. ? You have red streaks near the burn. ? You have very bad pain. Summary ? There are three types of kidd. They are first degree, second degree, and third degree. Of these, athird-degree burn is most serious. This must be treated right away. ? Treatment for your burn will depend on the type of burn you have. ? Do not put butter, oil, toothpaste, or other home remedies on the burn. These things can damage your skin. ? Follow instructions from your doctor about how to clean and take care of your burn. This information is not intended to replace advice given to you by your health care provider. Make sure you discuss any questions you have with your health care provider. Document Revised: 06/24/2020 Document Reviewed: 02/23/2020 [employer] Patient Education ?? 2022 [place] [employer]. Sexual Assault Sexual assault is any unwanted sexual activity that occurs without clear permission (consent) from both people. If a person does not have the mental ability to give consent, consent cannot happen. Noone has the right to have sexual contact with another person without the person's consent. Forms ofsexual assault include: ? Unwanted touching. ? Penetration. This may include vaginal, oral, or anal penetration. ? Incest. ? Human sex trafficking. ? Sexual harassment. ? Any form of sexual activity that occurs when a person is unable to give consent. Sexual assault can happen to a person of any age, gender, or race. It can: ? Be committed by a stranger or by someone you know. ? Include force, threats, or pressure to be involved in sexual activity that you do not want. What are the causes? The cause of a sexual assault is the person (perpetrator) of the violence. It is never the fault ofthe person who is assaulted. What increases the risk? The following factors make someone more likely to commit an assault: ? Substance abuse. ? Lack of concern for others. ? Aggressive behavior. ? Preference for impersonal sex. ? Hostility toward women, if a woman is assaulted. ? Hypermasculinity, if a male is the perpetrator. ? Having a history of sexual violence. What are the signs or symptoms? Symptoms of this condition include: ? Physical injuries in the genital area or other areas of the body. ? STIs (sexually transmitted infections). ? Unwanted . ? Emotional or psychological problems. These may include: ? Anxiety, depression, or post-traumatic stress disorder (PTSD). ? Shock and disbelief. ? Irritability and edginess. ? Feeling overwhelmed. ? Feeling angry and having thoughts of revenge. ? Guilt or shame. Other symptoms may include long-term health conditions, such as: ? Headaches. ? Chronic pain. ? Insomnia. ? Irritable bowel syndrome. ? Substance use disorder. How is this diagnosed? If you are sexually assaulted, get medical care as soon as possible. Your health care provider may perform a physical exam or test for infections. Testing for may be done, if it applies. It is important to know your options for the sexual assault exam. You can accept or decline any part of the exam. Your health care provider can answer any questions that you have before, during, or after the exam. During your physical exam, your health care provider may: ? Ask you questions about what happened during the sexual assault. ? Check your body for injuries or areas of pain. ? Collect samples to test for STIs. ? Collect samples from your body for evidence, if you choose to have this done. These samples may include: ? Swabs. ? Clothing. ? Blood. ? Urine. ? Hair. ? Material or debris that is found on or in your body. ? Take photographs for documentation, if you might take legal action at a later time. ? Photographs will not be taken unless you give your consent. ? If photographs are taken, they will be kept safe, along with other samples that you may choose to have collected for evidence. Decide whether you want to have evidence collected from your body. If you choose to have evidence collected, it is best to have it done as soon as possible. ? This evidence may be used if you choose to take legal action (press charges) at a later time. ? You may be able to ask for the evidence to be held by local authorities until you decide about taking legal action. How is this treated? In addition to performing a physical exam, your health care provider may: ? Offer you emergency control (contraception) if you are at risk for . ? Prescribe medicines to treat or prevent STIs. You may need to have additional evaluation and testing for STIs over a period of 3???6 months after the assault. ? Give you immunizations, such as the hepatitis B and HPV vaccines. You may need to get multiple doses of immunizations over a period of several months. Follow these instructions at home: Talking to others ? Consider having counseling after a sexual assault. Your health care provider or a sexual assault advocate may be able to recommend a counselor. ? Consider working with a sexual assault advocate. This person may be able to provide: ? Information about crime victim assistance. ? Information on filing Orders for Protection and Harassment Restraining Orders. ? Emotional support. General instructions ? Take [id number]-[id number] and prescription medicines only as told by your health care provider. ? Use a condom with your sexual partner, if this applies, until all of your STI tests are negative. You may need to use a condom for 3???6 months after the sexual assault. ? Get immunizations as needed. ? Keep all follow-up visits. This is important. Where to find more information ? [place] Sexual Assault Hotline: (HOPE) or hotline.[employer].org ? The [place] Domestic Violence Hotline: (SAFE) or [employer].ShotClip ? Office on Women's Health: womenshealth.gov Contact a health care provider if: ? You have signs of infection, such as: ? Discharge from your penis or vagina. ? A bad smell coming from your vagina. ? Burning when you urinate. ? A feeling of pressure when you urinate. ? Sores or blisters on your genital area. ? Swelling in your neck (lymph nodes). ? You feel pain during sex. ? You feel pain in your abdomen. ? You have symptoms of anxiety, depression, or PTSD. Symptoms may include: ? Trouble sleeping. ? Irritability. ? Having unwanted distressing memories while awake. ? Physical reactions triggered by reminders of the trauma, such as increased heart rate, shortness ofbreath, sweating, and shaking. ? Having flashbacks, or feeling like you are going through the event again. ? Decreased interest or participation in daily activities. ? Loss of connection or avoiding other people. Get help right away if: ? You are sexually assaulted. ? You have thoughts of harming yourself or others. If you ever feel like you may hurt yourself or others, or have thoughts about taking your own life,get help right away. Go to your nearest emergency department or: ? Call your local emergency services (911 in the [place] ? Call a suicide crisis helpline, such as the National Suicide Prevention Lifeline at or 188 in the [place] This is open 24 hours a day in the [place] ? Text the Crisis Text Line at 415396 (in the [place] Summary ? Sexual assault is any unwanted sexual activity that occurs without clear permission (consent) from both people. ? Sexual assault is never the fault of the person who is assaulted. No one has the right to have sexual contact with another person without the person's consent. ? It is important to get medical care as soon as possible after a sexual assault. ? It is important to know your options for the sexual assault exam. You can accept or decline any part of the exam. ? A sexual assault advocate can provide you with information about crime victim assistance and offer emotional support. This information is not intended to replace advice given to you by your health care provider. Make sure you discuss any questions you have with your health care provider. Document Revised: 11/29/2021 Document Reviewed: 12/05/2020 [employer] Patient Education ?? 2022 [employer] Tests Performed Medications and Immunizations Administered Given 0.9% NaCl bolus, 1000 mL, Medication Bolus doxycycline monohydrate, 100 mg, Oral methadone, 155 mg, Oral metroNIDAZOLE, 500 mg, Oral Rocephin, 500 mg, IV Piggyback Toradol, 15 mg, IV Push Lab Test Name Test Result Date/Time WBC 13.0 x10^3/mcL 06/07/2023 10:55 EST RBC 4.7 x10^6/mcL 06/07/2023 10:55 EST Hgb 14.4 g/dL 06/07/2023 10:55 EST Hct 39.2 % 06/07/2023 10:55 EST MCV 83.6 fL 06/07/2023 10:55 EST MCH 30.7 pg 06/07/2023 10:55 EST MCHC 36.7 g/dL 06/07/2023 10:55 EST RDW-CV 12.2 % 06/07/2023 10:55 EST Platelets 489 x10^3/mcL 06/07/2023 10:55 EST Neutro Auto 62.0 % 06/07/2023 10:55 EST Lymph Auto 27.0 % 06/07/2023 10:55 EST Meigs Auto 8.4 % 06/07/2023 10:55 EST Eos, Auto 2.0 % 06/07/2023 10:55 EST Basophil Auto 0.2 % 06/07/2023 10:55 EST Imm Gran Auto 0.4 % 06/07/2023 10:55 EST Neutro Absolute 8.0 x10^3/mcL 06/07/2023 10:55 EST Sodium Level 141 mmol/L 06/07/2023 10:55 EST Potassium Level 3.3 mmol/L 06/07/2023 10:55 EST Chloride Level 101 mmol/L 06/07/2023 10:55 EST CO2 28 mmol/L 06/07/2023 10:55 EST Alk Phos 129 unit/L 06/07/2023 10:55 EST AST 32 unit/L 06/07/2023 10:55 EST ALT 33 unit/L 06/07/2023 10:55 EST BUN 13 mg/dL 06/07/2023 10:55 EST Glucose Level 117 mg/dL 06/07/2023 10:55 EST Creatinine Level 0.75 mg/dL 06/07/2023 10:55 EST eGFR AA 108 06/07/2023 10:55 EST eGFR Non-AA 108 06/07/2023 10:55 EST Calcium Level 9.3 mg/dL 06/07/2023 10:55 EST Protein Total 7.2 g/dL 06/07/2023 10:55 EST Albumin Level 3.9 g/dL 06/07/2023 10:55 EST Bilirubin Total 0.6 mg/dL 06/07/2023 10:55 EST U hCG Ql NEGATIVE 06/07/2023 15:30 EST Ethanol Level <5 mg/dL 06/07/2023 10:55 EST U Amph Scrn NEGATIVE 06/07/2023 15:30 EST U Katlyn Scrn NEGATIVE 06/07/2023 15:30 EST U Benzodia Scrn NEGATIVE 06/07/2023 15:30 EST U Buprenorph Scr NEGATIVE 06/07/2023 15:30 EST U Cocaine Scrn POSITIVE 06/07/2023 15:30 EST U TCA Scr NEGATIVE 06/07/2023 15:30 EST U THC Scr NEGATIVE 06/07/2023 15:30 EST U mAMP Scr NEGATIVE 06/07/2023 15:30 EST U Methadone Scr POSITIVE 06/07/2023 15:30 EST U Opiate Scrn NEGATIVE 06/07/2023 15:30 EST U Oxy Scrn NEGATIVE 06/07/2023 15:30 EST U PCP Scrn NEGATIVE 06/07/2023 15:30 EST UA Color YELLOW. 06/07/2023 15:30 EST UA Appear CLEAR. 06/07/2023 15:30 EST UA Glucose NEGATIVE 06/07/2023 15:30 EST UA Bili NEGATIVE 06/07/2023 15:30 EST UA Ketones NEGATIVE 06/07/2023 15:30 EST UA Spec Grav 1.010 06/07/2023 15:30 EST UA Blood TRACE. 06/07/2023 15:30 EST UA pH 6.5 06/07/2023 15:30 EST UA Protein NEGATIVE 06/07/2023 15:30 EST UA Urobilinogen 0.2 Uro 06/07/2023 15:30 EST UA Nitrite NEGATIVE 06/07/2023 15:30 EST UA Leuk Est NEGATIVE 06/07/2023 15:30 EST UA Culture Ind?. 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 Patient/Warehouse [employer] Receiving Clerk Name: Patient/[employer]house [employer] Receiving Clerk Signature: Relationship to Patient: Witness Name/Signature: Date: Electronically Signed on: 06/07/2023 17:07 ESTSigned by:KAYLAH Emergency department Note * Anya Gill H: PERFORM Event Display: ED Notes Authored Date: [id number] Patient Care team information Care Team Personnel Name: Kike Blanco MD Position: Physician Member Role: Informed Provider Address: Address: [address] Care Team Related Persons Name: KATLYN TAN
--- OUTSIDE RECORDS SUMMARY | 2024-02-25 14:25 | XMS_ITS | Encounter Summary ---
Author Organization [facility] Address [address] [place] [address] Care Team Providers Care Fur Scraper Name Role Phone Unknown, Provider Primary Care Provider + [phone] Reason for Visit * Reason Onset Date Comments Pre-visit Orders 12/30/2019 Encounter Details Date Type Department Care Team (Late st Contact Info) Description 12/30/2019 Orders Only [facility] Ob[facility]etrics [facility] Midwifery - [address] [address] Danni Lauren, RN Ultrasound for screening for growth restriction (Primary Dx) Social History Tobacco Use Types Packs/Day Years Used Date Smoking Tobacco: Never Assessed Interpersonal Safety Answer Date Record ed Physically Hurt Never 12/30/2019 Verbally Threaten Not on file 12/30/2019 Sex and Gender Information Value Date Recorded Sex Assigned at Not on file Gender Identity Not on file Sexual Orientation Not on file documented as of this encounter Progress Notes * Danni Lauren, RN - 12/30/2019 1005 EDT Rec'd referral from [facility] in [place]- patient now 36+6, with BE of 9-3-20. 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 Dr. Moreno notes an US was ordered through [facility] but one not rec'd. TC to their office to have order re-sent, however, not in clinic this week. Order placed to avoid further delay in evaluating patient. documented in this encounter Plan of Treatment Not on file documented as of this encounter Visit Diagnoses Diagnosis Ultrasound for screening for growth restriction- Primary screening for growth retardation using ultrasonics documented in this encounter Care Teams Fur Scraper Relationship Specialty Start Date End Date Unknown, Provider, PCP - General 07/28/15 documented as of this encounter
--- OUTSIDE RECORDS SUMMARY | 2024-02-25 14:25 | XMS_ITS | Encounter Summary ---
Author Organization [facility] Address [address] [place] [address] Care Team Providers Care Tone Regulator Name Role Phone Unknown, Provider Primary Care Provider + [phone] Encounter Details Date Type Department Care Team (Late st Contact Info) Description 10/26/2022 Lab Requisition [facility] Pathology & Laboratory Medicine - [address] [id number] Outr Resulting Lab, Provider Social History Tobacco [...] Procedure Name Priority Date/Time Associated Diagnosis Comments METHADONE AND METABOLITE CONFIRMATION PANEL Routine 10/26/2022 13:01 EDT documented in this encounter Results * (ABNORMAL) METHADONE AND METABOLITE CONFIRMATION PANEL (10/26/2022 13:01 EDT) Methadone Confirmation >2000(A) <100 ng/mL 10/30/2022 9:47 EDT [facility] EDDP Confirmation Negative <100 ng/mL 10/30/2022 9:47 EDT [facility] Urine URINE / Unknown 10/26/2022 1 3:01 EDT 10/26/2022 21:01 EDT Narrative [facility] - 10/30/2022 9:47 EDT Testing performed by: [facility] [address], [address], [place] [address] Rubber Worker: Jose Cruz Currie MD; CLIA # [id number] Provider Outr Resulting Lab GEN LAB UNIT COLLECT ORDERABLES [facility] [address], [address] [place] [address], [facility] [phone] documented in this encounter Visit Diagnoses Not on filedocumented in this encounter Care Teams Tone Regulator Relationship Specialty Start Date End Date Unknown, Provider, PCP - General 07/28/15 documented as of this encounter
--- OUTSIDE RECORDS SUMMARY | 2024-02-25 14:25 | XMS_ITS | Continuity of Care Document ---
Author Organization [facility] Address [address] [place] [address] Care Team Providers Care Associate Field Service Engineer Name Role Phone Kike Blanco Primary Care Physician [facility] Date(s): 05/22/23 - 05/22/[address] [phone] Encounter Diagnosis Pharyngitis(Discharge Diagnosis) - 05/22/23 Discharge Disposition: Home or Self Care Attending Physician: Madeline Stoddard MD Admitting Physician: Madeline Stoddard MD Allergies, Adverse Reactions, Alerts Substance Reaction Severity Status INSECT VENOM Anaphylactic reaction Unknown Active LATEX Urticaria Unknown Active clindamycin Anaphylactic reaction Unknown Active aspirin Urticaria Unknown Active Assessment and Plan Future Appointments Immunizations Given and Recorded Vaccine Date Status [...] Daily, # 30 tab, 2 Refill(s), Pharmacy: [facility] #[id number], 160, cm,12/09/22 7:53:00 EDT, Height/Length Dosing, 77.11, kg, 12/09/22 7:53:00 EDT, Weight Dosing Start Date: 04/09/23 Stop Date: 07/08/23 Status: Ordered methadone See Instructions, takes Methadone 155 mg's daily through the [facility] 0 Refill(s) Start Date: 11/23/22 Status: Ordered methylphenidate 20 mg oral tablet 20 mg = 1 tab, Oral, TID, May fill 1 day early due to transportation x 1 only, # 84 tab, 0 Refill(s), Pharmacy: [facility] #[id number], 160, cm, 12/09/22 7:53:00 EDT, Height/Length Dosing, 77.11, kg, 12/09/22 7:53:00 EDT, Weight Dosing Start Date: 04/09/23 Stop Date: 05/07/23 Status: Ordered QUEtiapine 50 mg oral tablet 50 mg = 1 tab, Oral, every night at bedtime, # 30 tab, 2 Refill(s), Pharmacy: [facility] #[id number], 160, cm, 12/09/22 7:53:00 EDT, Height/Length Dosing, 77.11, kg, 12/09/22 7:53:00 EDT, WeightDosing Start Date: 04/09/23 Stop Date: 07/08/23 Status: Ordered Ritalin 20 mg oral tablet 20 mg = 1 tab, Oral, TID, Please fill 06/09/2023, # 84 tab, 0 Refill(s), Pharmacy: [facility][id number], 160, cm, 12/09/22 7:53:00 EDT, Height/Length Dosing, 77.11, kg, 12/09/22 7:53:00 EDT, Weight Dosing Start Date: 04/09/23 Stop Date: 05/07/23 Status: Ordered Ritalin 20 mg oral tablet 20 mg = 1 tab, Oral, TID, # 84 tab, 0 Refill(s), Pharmacy: [facility] #[id number], 160, cm, 12/09/22 7:53:00 EDT, Height/Length Dosing, 77.11, kg, 12/09/22 7:53:00 EDT, Weight Dosing Start Date: 05/15/23 Stop Date: 06/12/23 Status: Ordered Problem List Condition Confirmation Course Effective Dates Status Health St atus Informant Bipolar disorder, unspecified Confirmed Active Encounter for medication management Confirmed Active Results Laboratory List Name Date Strep A (ID NOW) 05/22/23 Most recent to oldest [Reference Range]: 1 Strep A -IDNOW [Not Detected] Not Detect ed (05/22/23 6:19 PM) Orders for Microbiology Reports Name Date Throat Culture 05/22/23 Microbiology Reports TEST:Throat Culture STATUS:Order in Progress BODY SITE: SOURCE:Throat COLLECTED DATE/TIME:05/22/23 6:54 PM PRELIMINARY REPORT Normal Shefali at 24 hours Vital Signs Most recent to oldest [Reference Range]: 1 Temperature Temporal Artery [36-38 Deg C ] 36.3 Deg C (05/22/23 6:07 PM) Peripheral Pulse Rate [60-100 bpm] 81 bp m (05/22/23 6:07 PM) Respiratory Rate [12-24 br/min] 16 br/mi n (05/22/23 6:07 PM) Blood Pressure [90-140/60-90 mmHg] 136/8 1mmHg (05/22/23 6:07 PM) Mean Arterial Pressure, Cuff [70-110 mmH g] 99 mmHg (05/22/23 6:07 PM) Social History Social History Type Response Tobacco Current everyday tob acco user Tobacco Use:. 1/2 PPD to 1 PPD per day. Sex Female Hospital Discharge Instructions Patient Education 05/22/2023 17:47:07 Sore Throat Sore Throat A sore throat is pain, burning, irritation, or scratchiness in the throat. When you have a sore throat, you may feel pain or tenderness in your throat when you swallow or talk. Many things can cause a sore throat, including: ??? An infection. ??? Seasonal allergies. ??? Dryness in the air. ??? Irritants, such as smoke or pollution. ??? Radiation treatment for cancer. ??? Gastroesophageal reflux disease (GERD). ??? A tumor. A sore throat is often the first sign of another sickness. It may happen with other symptoms, such as coughing, sneezing, fever, and swollen neck glands. Most sore throats go away without medical treatment. Follow these instructions at home: Medicines ??? Take mboj-tfj-vdxiqbf and prescription medicines only as told by your health care provider. ??? Children often get sore throats. Do not give your child aspirin because of the association withReye's syndrome. ??? Use throat sprays to soothe your throat as told by your health care provider. Managing pain To help with pain, try: ??? Sipping warm liquids, such as broth, herbal tea, or warm water. ??? Eating or drinking cold or frozen liquids, such as frozen ice pops. ??? Gargling with a mixture of salt and water 3???4 times a day or as needed. To make salt water, completely dissolve ?1 tsp (3???6 g) of salt in 1 cup (237 mL) of warm water. ??? Sucking on hard candy or throat lozenges. ??? Putting a cool-mist humidifier in your bedroom at night to moisten the air. ??? Sitting in the bathroom with the door closed for 5???10 minutes while you run hot water in the shower. General instructions ??? Do not use any products that contain nicotine or tobacco. These products include cigarettes, chewing tobacco, and vaping devices, such as e-cigarettes. If you need help quitting, ask your health care provider. ??? Rest as needed. ??? Drink enough fluid to keep your urine pale yellow. ??? Wash your hands often with soap and water for at least 20 seconds. If soap and water are not available, use hand mgmt specialist. Contact a health care provider if: ??? You have a fever for more than 2???3 days. ??? You have symptoms that last for more than 2???3 days. ??? Your throat does not get better within 7 days. ??? You have a fever and your symptoms suddenly get worse. Get help right away if: ??? You have difficulty breathing. ??? You cannot swallow fluids, soft foods, or your saliva. ??? You have increased swelling in your throat or neck. ??? You have persistent nausea and vomiting. These symptoms may represent a serious problem that is an emergency. Do not wait to see if the symptoms will go away. Get medical help right away. Call your local emergency services (911 in the [place] Do not drive yourself to the hospital. Summary ??? A sore throat is pain, burning, irritation, or scratchiness in the throat. Many things can cause a sore throat. ??? Take jwcb-ofr-pwyqmbv medicines only as told by your health care provider. ??? Rest as needed. ??? Drink enough fluid to keep your urine pale yellow. ??? Contact a health care provider if your throat does not get better within 7 days. This information is not intended to replace advice given to you by your health care provider. Make sure you discuss any questions you have with your health care provider. Document Revised: 08/02/2021 Document Reviewed: 08/02/2021 [employer] Patient Education ?? 2022 [employer]. Follow Up Care 05/22/2023 18:07:15 With:Follow up with primary care provider Address: When:1 to 2 weeks Physician Emergency department Note * Madeline Stoddard MD: PERFORM Event Display: ED Note Physician Authored Date: [id number] VAISHALI TAN :1990 Age:32 years Sex:Female Visit Date:05/22/2023 Primary Care Physician: Kike Blanco MD Basic Information Time Seen: Madeline Stoddard MD / 05/22/2023 18:24 Chief Complaint 1 week of sore throat, concern for exposure to strep. COVID + 2 weeks ago, some residual symptoms. Denies SOB. History Of Present Illness: Patient reports the last few days she has had a sore throat??3 weeks ago she had COVID.?? Patient reports she was around people with strep throat??number days ago??says she thinks she caught it from them.?? Patient reports it is hard to swallow she took 4 hours ago 800 mg of ibuprofen.?? No fever.?? Patient reports some ear pain??last night. ??No significant cough.?? Review of Systems: see hpi for ros Physical Exam Vitals & Measurements T:??36.3?C ??(Temporal Artery)?? HR:??81??(Peripheral)?? RR:??16?? BP:??136/81?? SpO2:??98%?? Pain Score:??7?? O2 Therapy:??Room air?? General: Alert and oriented, well nourished,?No??acute distress Eye: PER,?Normal??conjunctiva, No scleral icterus HENT: Normocephalic?Normal?? hearing??Positive erythema posterior pharynx no nasal discharge Respiratory:??Respiration??no distress??no increased work of breathing Heart:??Capillary refill less than 2 seconds??no??edema Chest: wall excursion wnl no abnormal movements no obvious deformities Musculoskeletal:?Normal?? range of motion and strength,?No??tenderness,?No??swelling Skin: Skin is warm, dry and pink,?No??rashes,?No??lesions Neurologic: Awake, alert and oriented X4 Psychiatric: Cooperative, appropriate mood and affect Medical Decision Making: For MDM please see under assessment and plan Procedure No Qualifying Data Assessment/Plan 1.??Pharyngitis??J02.9 Rapid strep is negative patient requesting a throat culture to be done stating??she usually does??not have a positive??rapid strep.?? Throat culture will be sent. ??Patient is aware in the meantime??to take ibuprofen up to 800 mg every 8 hours??take Tylenol up to 1000 mg every 6 hours as needed useCepacol lozenges as needed??and if she worsens to return to the emergency department or see primarycare provider. Ordered: Discharge Patient, 05/22/23 18:46:00 EST, Home Independently, Constant Indicator Throat Culture, Throat, Routine collect, RT - Routine, 05/22/23 18:50:00 EST, Once, Nurse collect, Pharyngitis ?? Patient Education Sore Throat Follow Up With When Contact Information Follow up with primary care provider Within 1 to 2 weeks Additional Instructions: Medication Reconciliation Unchanged lamoTRIgine (LaMICtal 100 mg oral tablet)1 tab Oral (given by mouth) every day for 30 Days. Refills: 2. ?? methadonetakes Methadone 155 mg's daily through the [facility].. ?? methylphenidate (methylphenidate 20 mg oral tablet)1 tab Oral (given by mouth) 3 times a day for 28Days. May fill 1 day early due to transportation x 1 only. Refills: 0. ?? methylphenidate (Ritalin 20 mg [...] Historical No qualifying data Medication Administration Given acetaminophen, 1000 mg, Oral Allergies INSECT VENOM??(Anaphylactic reaction) LATEX??(Urticaria) aspirin??(Urticaria) clindamycin??(Anaphylactic reaction) Social History Alcohol Never Electronic Cigarette/Vaping Electronic Cigarette Use: Never. Employment/School Unemployed Home/Environment Lives with Children. Nutrition/Health Caffeine intake amount: soda daily. 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 Tobacco Current everyday tobacco user Tobacco Use:. 1/2 PPD to 1 PPD per day. Lab Results Infectious Disease?? LATEST RESULTS?? Strep A -IDNOW?? 05/22/23 18:19?? Not Detected? Electronically Signed on 05/22/23 06:51 PM Madeline Stoddard MD Emergency department Discharge instructions * Madeline Stoddard MD: PERFORM Event Display: ED Discharge Information Authored Date: [id number] VAISHALI TAN :1990 Age:32 years Sex:Female Visit Date:05/22/2023 Primary Care Physician: Kike Blanco MD Discharge Instructions We would like to thank you for allowing us to assist you with your healthcare needs. The following includes patient education materials and information regarding your injury/illness. Diagnosis from Today's Visit Pharyngitis Discharge Vitals Temperature??(Temporal Artery) 97.3 ??F (36.3 ??C) Heart Rate??(Peripheral) 81 Respiratory Rate?? 16 Blood Pressure?? 136/81?? Allergies INSECT VENOM??(Anaphylactic reaction) LATEX??(Urticaria) aspirin??(Urticaria) clindamycin??(Anaphylactic reaction) What to Do Next Instructions from Your Care Team You may take up to 800 mg of Motrin, Advil??(ibuprofen)??every 8 hours as needed for pain or discomfort??and or??up to??1000 mg??of Tylenol??(acetaminophen) every 6 hours as needed??for pain or discomfort for maximum 4000 mg in 24 hours or you may permanently hurt your liver. You Need to Schedule the Following Appointments Follow Up with??Follow up with primary care provider When:??Within 1 to 2 weeks Upcoming Scheduled Appointments Saturday. 2023 3:15 PM EST ?? With: Beatriz Slade DNP Where: [address] [phone] Status: Confirmed Saturday 9:15 AM EDT ?? With: Beatriz Slade DNP Where: [address] [place] [address] Status: Confirmed You were treated today [...] How Much When Why Instructions Next Dose Unchanged lamoTRIgine (LaMICtal 100 mg oral tablet) 1 tab Oral (given by mouth) Every day ADHD (attention deficit hyperactivity disorder) Duration: 30 Days Unchanged methadone See instructions takes Methadone 155 mg's daily through the [facility]. ?? Unchanged methylphenidate (methylphenidate 20 mg oral tablet) 1 tab Oral (given by mouth) 3 times a day Duration: 28 Days May fill 1 day early due to transportation x 1 only ?? Unchanged methylphenidate (Ritalin 20 mg oral tablet) 1 tab Oral (given by mouth) 3 times a day ADHD (attention deficit hyperactivity disorder) Duration: 28 Days Please fill 2023 ?? Unchanged methylphenidate (Ritalin 20 mg oral tablet) 1 tab Oral (given by mouth) 3 times a day ADHD (attention deficit hyperactivity disorder) Duration: 28 Days Unchanged QUEtiapine (QUEtiapine 50 mg oral tablet) 1 tab Oral (given by mouth) Every night at bedtime ADHD (attention deficit hyperactivity disorder) Duration: 30 Days Education Materials Sore Throat A sore throat is pain, burning, irritation, or scratchiness in the throat. When you have a sore throat, you may feel pain or tenderness in your throat when you swallow or talk. Many things can cause a sore throat, including: ? An infection. ? Seasonal allergies. ? Dryness in the air. ? Irritants, such as smoke or pollution. ? Radiation treatment for cancer. ? Gastroesophageal reflux disease (GERD). ? A tumor. A sore throat is often the first sign of another sickness. It may happen with other symptoms, such as coughing, sneezing, fever, and swollen neck glands. Most sore throats go away without medical treatment. Follow these instructions at home: Medicines ? Take vxuv-nfd-rwwdwce and prescription medicines only as told by your health care provider. ? Children often get sore throats. Do not give your child aspirin because of the association with Chris's syndrome. ? Use throat sprays to soothe your throat as told by your health care provider. Managing pain To help with pain, try: ? Sipping warm liquids, such as broth, herbal tea, or warm water. ? Eating or drinking cold or frozen liquids, such as frozen ice pops. ? Gargling with a mixture of salt and water 3???4 times a day or as needed. To make salt water, completely dissolve ?1 tsp (3???6 g) of salt in 1 cup (237 mL) of warm water. ? Sucking on hard candy or throat lozenges. ? Putting a cool-mist humidifier in your bedroom at night to moisten the air. ? Sitting in the bathroom with the door closed for 5???10 minutes while you run hot water in the shower. General instructions ? Do not use any products that contain nicotine or tobacco. These products include cigarettes, chewing tobacco, and vaping devices, such as e-cigarettes. If you need help quitting, ask your health careprovider. ? Rest as needed. ? Drink enough fluid to keep your urine pale yellow. ? Wash your hands often with soap and water for at least 20 seconds. If soap and water are not available, use hand mgmt specialist. Contact a health care provider if: ? You have a fever for more than 2???3 days. ? You have symptoms that last for more than 2???3 days. ? Your throat does not get better within 7 days. ? You have a fever and your symptoms suddenly get worse. Get help right away if: ? You have difficulty breathing. ? You cannot swallow fluids, soft foods, or your saliva. ? You have increased swelling in your throat or neck. ? You have persistent nausea and vomiting. These symptoms may represent a serious problem that is an emergency. Do not wait to see if the symptoms will go away. Get medical help right away. Call your local emergency services (911 in the [place] Do not drive yourself to the hospital. Summary ? A sore throat is pain, burning, irritation, or scratchiness in the throat. Many things can cause a sore throat. ? Take ncrd-zhy-lunmdnc medicines only as told by your health care provider. ? Rest as needed. ? Drink enough fluid to keep your urine pale yellow. ? Contact a health care provider if your throat does not get better within 7 days. This information is not intended to replace advice given to you by your health care provider. Make sure you discuss any questions you have with your health care provider. Document Revised: 08/02/2021 Document Reviewed: 08/02/2021 [employer] Patient Education ?? 2022 [employer] Tests Performed Medications and Immunizations Administered Given acetaminophen, 1000 mg, Oral Lab Test Name Test Result Date/Time Strep A -IDNOW Not Detected 05/22/2023 18:19 EST Patient/Casing Material Weigher Signature Patient Name:VAISHALI TAN I have received this information and my questions have been answered. Patient/Casing Material Weigher Name: Patient/Casing Material Weigher Signature: Relationship to Patient: Witness Name/Signature: Date: Electronically Signed on: 05/22/2023 18:47 ESTSigned by:[facility] Emergency department Note * Geetha Berg: PERFORM Event Display: ED Notes Authored Date: [id number] Patient Care team information Care Team Personnel Name: Kike Blanco MD Position: Physician Member Role: Informed Provider Address: Address: [address] Name: Alexis Silver RN Position: Nurse Member Role: ED Nurse Name: Fernanda Mcguire Position: Nurse Member Role: ED Nurse Name: Madeline Stoddard MD Position: Physician Member Role: ED Physician Address: Address: [address] [place] [address] Care Team Related Persons Name: KATLYN TAN
--- OUTSIDE RECORDS SUMMARY | 2024-02-25 14:25 | XMS_ITS | Encounter Summary ---
Author Organization [facility] Address [address] [place] [address] Care Team Providers Care Civil Division Deputy Sheriff Name Role Phone Unknown, Provider Primary Care Provider + [phone] Encounter Details Date Type Department Care Team (Late st Contact Info) Description 07/15/2023 Lab Requisition [facility] Pathology & Laboratory Medicine - [facility] [address] [place], [place] [address] Outr Resulting Lab, Provider Social History Tobacco [...] Procedure Name Priority Date/Time Associated Diagnosis Comments HIV 1/2 ANTIGEN AND ANTIBODY, 4TH GENERATION Routine 07/15/2023 15:12 EST documented in this encounter Results * HIV 1/2 ANTIGEN AND ANTIBODY, 4TH GENERATION (07/15/2023 15:12 EST) HIV 1 and 2 Antibody/p24 Antigen, 4th Generation Negative Negative 07/15/2023 22:39 EST [facility] Comment:If acute HIV-1 infec tion is suspected in a high risk patient, submit plasma specimen for HIV-1 RNA quantitation test. Blood VENOUS BLOOD / Unknown 07/15/2023 15:12 EST 07/15/2023 20:57 EST Narrative [facility] - 07/15/2023 22:39 EST Fourth Generation assay performed on the Siemens Centaur XPT. Provider Outr Resulting Lab IMMUNOLOGY A ND SEROLOGY ORDERABLES Performing Organization Address City/State/[facility] Co de Phone Number [facility] [address] [place] [address] documented in this encounter Visit Diagnoses Not on filedocumented in this encounter Care Teams Civil Division Deputy Sheriff Relationship Specialty Start Date End Date Unknown, Provider, PCP - General 07/28/15 documented as of this encounter
--- OUTSIDE RECORDS SUMMARY | 2024-02-25 14:25 | XMS_ITS | Encounter Summary ---
Author Organization [facility] Address [address] [place] [address] Care Team Providers Care Spares Scheduler Name Role Phone Unknown, Provider Primary Care Provider + [phone] Encounter Details Date Type Department Care Team (Late st Contact Info) Description 06/24/2019 Lab Requisition [facility] Pathology & Laboratory Medicine - [address] [address] Unknown, Provider, Social History Tobacco Use Types Packs/Day Years Used Date Smoking Tobacco: Never Assessed Sex and Gender Information Value Date Recorded Sex Assigned at Not on file Gender Identity Not on file Sexual Orientation Not on file documented as of this encounter Plan of Treatment Not on file documented as of this encounter Procedures Procedure Name Priority Date/Time Associated Diagnosis Comments CHLAMYDIA/N. GONORRHOEAE AMPLIFIED NUCLEIC ACID Routine 06/24/2019 14:29 EST documented in this encounter Results * CHLAMYDIA/N. GONORRHOEAE AMPLIFIED RNA (06/24/2019 14:29 EST) Neisseria gonorrhoeae Result Negative Negative 06/25/2019 15:13 EST [facility] Chlamydia trachomatis Result Negative Negative 06/25/2019 15:13 EST [facility] Swab SPECIMEN FROM UTERINE CERVIX / Unknown 06/24/2019 14:29 EST 06/24/2019 22:18 EST Provider Unknown MICROBIOLOGY - GENER AL ORDERABLES [facility] [address] [place] [address] documented in this encounter Visit Diagnoses Not on filedocumented in this encounter Care Teams Spares Scheduler Relationship Specialty Start Date End Date Unknown, Provider, PCP - General 07/28/15 documented as of this encounter
--- OUTSIDE RECORDS SUMMARY | 2024-02-25 14:25 | XMS_ITS | Encounter Summary ---
Author Organization [facility] Address [address] [place] [address] Care Team Providers Care Ceramic Artist Name Role Phone Unknown, Provider Primary Care Provider + [phone] Encounter Details Date Type Department Care Team (Late st Contact Info) Description 11/09/2019 Lab Requisition [facility] Pathology & Laboratory Medicine - [facility] [address] [place], [place] [address] Outr Resulting Lab, Provider Social History Tobacco [...] Procedure Name Priority Date/Time Associated Diagnosis Comments FIBRONECTIN Routine 11/09/2019 9:10 EDT documented in this encounter Results * FIBRONECTIN (11/09/2019 9:10 EDT) Fibronectin Negative Negative 11/09/2019 22:22 EDT [facility] Sample Appearance Cloudy and Colorless N/A 11/09/2019 22:22 EDT [facility] Fluid ENTIRE VAGINA / Unknown 11/09/2019 9:10 EDT 11/09/2019 21:39 EDT Provider Outr Resulting Lab CHEMISTRY & BLOOD GAS ORDERABLES [facility] [address] [place] [address] documented in this encounter Visit Diagnoses Not on filedocumented in this encounter Care Teams Ceramic Artist Relationship Specialty Start Date End Date Unknown, Provider, PCP - General 07/28/15 documented as of this encounter
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
--- OUTSIDE RECORDS SUMMARY | 2024-02-25 14:25 | XMS_ITS | Encounter Summary ---
Author Organization [facility] Address [address] [place] [address] Care Team Providers Care Professor Of Archaeology Name Role Phone Unknown, Provider Primary Care Provider + [phone] Encounter Details Date Type Department Care Team (Late st Contact Info) Description 09/16/2023 Lab Requisition [facility] Pathology & Laboratory Medicine - [address] [address] Outr Resulting Lab, Provider Social History Tobacco [...] Comments METHADONE AND METABOLITE CONFIRMATION PANEL Routine 09/16/2023 9:33 EDT documented in this encounter Results * (ABNORMAL) METHADONE AND METABOLITE CONFIRMATION PANEL (09/16/2023 9:33 EDT) Methadone Confirmation >2000(A) <100 ng/mL 09/18/2023 14:46 EDT [facility] EDDP Confirmation >2000(A) <100 ng/mL 09/18/2023 14:46 EDT [facility] Urine URINE / Unknown 09/16/2023 9 :33 EDT 09/16/2023 21:48 EDT Narrative [facility] 09/18/2023 14:46 EDT Testing performed by: [facility] [address], [address], [place] [address] Wholesale Parts Salesperson: Jose Cruz Currie MD; CLIA # [id number] Provider Outr Resulting Lab GEN LAB UNIT COLLECT ORDERABLES Performing Organization Address City/State/[facility] Co de Phone Number [facility] [address] [place] [address], [facility] [address] [phone] documented in this encounter Visit Diagnoses Not on filedocumented in this encounter Care Teams Professor Of Archaeology Relationship Specialty Start Date End Date Unknown, Provider, PCP - General 07/28/15 documented as of this encounter
--- OUTSIDE RECORDS SUMMARY | 2024-02-25 14:25 | XMS_ITS | Encounter Summary ---
Author Organization [facility] Address [address] [place] [address] Care Team Providers Care Fashion Consultant Sales Name Role Phone Unknown, Provider Primary Care Provider + [phone] Encounter Details Date Type Department Care Team (Late st Contact Info) Description 09/26/2022 Lab Requisition [facility] Pathology & Laboratory Medicine - [address] [address] Outr Resulting Lab, Provider Social History Tobacco [...] Procedure Name Priority Date/Time Associated Diagnosis Comments RITALINIC ACID PANEL CONFIRMATION Routine 09/26/2022 9:20 EDT documented in this encounter Results * RITALINIC ACID PANEL CONFIRMATION (09/26/2022 9:20 EDT) Ritalinic Acid (methylphenidate metabolite) Confirmation >1000 <50 ng/mL 09/28/2022 12:03 EDT [facility] Urine URINE / Unknown 09/26/2022 9 :20 EDT 09/26/2022 21:33 EDT Narrative [facility] - 09/28/2022 12:03 EDT Testing performed by: [facility] [address], [address], [place] [address] Superintendent Menagerie: Jose Cruz Currie MD; CLIA # [id number] Provider Outr Resulting Lab GEN LAB UNIT COLLECT ORDERABLES [facility] [address], [address] [place] [address], [facility] [phone] documented in this encounter Visit Diagnoses Not on filedocumented in this encounter Care Teams Fashion Consultant Sales Relationship Specialty Start Date End Date Unknown, Provider, PCP - General 07/28/15 documented as of this encounter
--- OUTSIDE RECORDS SUMMARY | 2024-02-25 14:25 | XMS_ITS | Encounter Summary ---
Author Organization [facility] Address [address] [place] [address] Care Team Providers Care Barrel Charrer Helper Name Role Phone Unknown, Provider Primary Care Provider + [phone] Encounter Details Date Type Department Care Team (Late st Contact Info) Description 07/09/2019 Lab Requisition [facility] Pathology & Laboratory Medicine - [address] [address] Unknown, Provider, Social History Tobacco Use Types Packs/Day Years Used Date Smoking Tobacco: Never Assessed Sex and Gender Information Value Date Recorded Sex Assigned at Not on file Gender Identity Not on file Sexual Orientation Not on file documented as of this encounter Plan of Treatment Not on file documented as of this encounter Procedures Procedure Name Priority Date/Time Associated Diagnosis Comments HEPATITIS C AB W REFLEX TO HCV RNA BY PCR Routine 07/09/2019 9:44 EST HEPATITIS B SURFACE ANTIGEN Routine 07/09/2019 9:44 EST HIV 1/2 ANTIGEN AND ANTIBODY, 4TH GENERATION Routine 07/09/2019 9:44 EST documented in this encounter Results * HEPATITIS C AB W REFLEX TO HCV RNA BY PCR (07/09/2019 9:44 EST) Hep C Antibody Negative Negative 07/10/2019 10:48 EST [facility] Blood VENOUS BLOOD / Unknown 07/09/2019 9:44 EST 07/09/2019 21:41 EST Provider Unknown CHEMISTRY & BLOOD GA S ORDERABLES Performing Organization Address City/[facility]/ZIP Co de Phone Number [facility] [address] [place] [address] * HEPATITIS B SURFACE ANTIGEN (07/09/2019 9:44 EST) Hep B Surface Ag Negative Negative 07/10/2019 10:48 EST [facility] Blood VENOUS BLOOD / Unknown 07/09/2019 9:44 EST 07/09/2019 21:41 EST Provider Unknown CHEMISTRY & BLOOD GA S ORDERABLES Performing Organization Address City/[facility] Co de Phone Number [facility] [address] [place] [address] * HIV 1/2 ANTIGEN AND ANTIBODY, 4TH GENERATION (07/09/2019 9:44 EST) HIV 1 and 2 Antibody/p24 Antigen, 4th Generation Negative Negative 07/10/2019 11:11 EST [facility] Comment: If acute HIV-1 infection is suspected in a high risk ??patient, submit plasma specimen for HIV-1 RNA quantitation test. Fourth Generation assay performed on the Siemens Centaur. Blood VENOUS BLOOD / Unknown 07/09/2019 9:44 EST 07/09/2019 21:41 EST Provider Unknown IMMUNOLOGY AND SEROL OGY ORDERABLES Performing Organization Address City/[facility] Co de Phone Number [facility] [address] [place] [address] documented in this encounter Visit Diagnoses Not on filedocumented in this encounter Care Teams Barrel Charrer Helper Relationship Specialty Start Date End Date Unknown, Provider, PCP - General 07/28/15 documented as of this encounter
--- OUTSIDE RECORDS SUMMARY | 2024-02-25 14:25 | XMS_ITS | Encounter Summary ---
Author Organization [facility] Address [address] [place] [address] Care Team Providers Care Windows Infrastructure Engineer Name Role Phone Unknown, Provider Primary Care Provider + [phone] Encounter Details Date Type Department Care Team (Late st Contact Info) Description 01/11/2020 Lab Requisition [facility] Pathology & Laboratory Medicine - [address] [phone] Outr Resulting Lab, Provider Social History Tobacco [...] Procedure Name Priority Date/Time Associated Diagnosis Comments DO NOT ORDER STANDALONE - BROAD COVID TEST Today 01/11/2020 10:12 EDT COVID-19 TESTING Routine 01/11/2020 10:1 2 EDT documented in this encounter Results * DO NOT ORDER STANDALONE - BROAD COVID TEST (01/11/2020 10:12 EDT) COVID-19 rt-PCR Result NEGATIVE Negative 01/12/2020 23:45 EDT [facility] Comment: 2019-novel Coronavirus (2019-nCoV) not detected by the qRT-PCR assay. Consider testing for other respiratory viruses or re-collecting for 2019-nCoV testing. Note: Optimum timing for peak viral levels during infections caused by 2019-nCoV have not been determined. Collection of multiple specimens from the same patient may be necessary to detect the virus. Limitations Positive results are indicative of active infection with SARS-CoV-2 but do not rule out bacterial infection or co-infection with other viruses. The agent detected may not be the definite cause of disease. In addition, detection of viral RNA may not indicate the presence of infectious virus or that SARS-CoV-2 is the causative agent for clinical symptoms. Negative results do not preclude SARS-CoV-2 infection and should not be used as the sole basis for patient management decisions. Negative results must be combined with clinical observations, patient history, and epidemiological information. False negative results may also occur if amplification inhibitors are present in the specimen or if inadequate numbers of organisms are present in the specimen. Optimum specimen types and timing for peak viral levels during infections caused by SARS-CoV-2 have not been fully determined. Collection of multiple specimens (types and time points) from the same patient may be necessary to detect the virus. The test was validated for use with upper respiratory specimens obtained via nasopharyngeal or oropharyngeal swabs in VTM, UTM, M4, M5, M6, saline, and MTM media. The performance of this test has not been established for other specimens. Specimens collected using other FDA recommended Specimen Collection Materials listed in the FDA COVID-19 Diagnostic Technologies communication (August 13, 2019) are processed with the caveat that they were not all validated for use with this test and the result must be interpreted in this context. Furthermore, a false negative results may occur if a specimen is improperly collected, transported or handled. If the virus mutates in the RT-PCR target region, SARS-CoV-2 may not be detected or may be detected less predictably. Inhibitors or other types of interference may produce a false negative result. An interference study evaluating the effect of common cold medications was not performed. This test is not FDA-cleared but its performance characteristics were established by our CLIA-certified, CAP-accredited, high complexity laboratory in accordance with CLIA regulations, College of [place] [employer] Pathologists (CAP) guidelines (Aug 06, 2019), and FDA guidance (Jul 18, 2019). This test is only for use under the Food and Drug Administration's Emergency Use Authorization. Swab ENTIRE NASOPHARYNX / Unknown 01/11/2020 10:12 EDT 01/11/2020 22:22 EDT Provider Outr Resulting Lab MICROBIOLOGY - GENERAL ORDERABLES [facility] [place], [place] * COVID-19 TESTING (01/11/2020 10:12 EDT) COVID-19 rt-PCR Result NEGATIVE Negative 01/13/2020 2:34 EDT [facility] Comment: 2019-novel Coronavirus (2019-nCoV) not detected by the qRT-PCR assay. Consider testing for other respiratory viruses or re-collecting for 2019-nCoV testing. Note: Optimum timing for peak viral levels during infections caused by 2019-nCoV have not been determined. Collection of multiple specimens from the same patient may be necessary to detect the virus. Limitations Positive results are indicative of active infection with SARS-CoV-2 but do not rule out bacterial infection or co-infection with other viruses. The agent detected may not be the definite cause of disease. In addition, detection of viral RNA may not indicate the presence of infectious virus or that SARS-CoV-2 is the causative agent for clinical symptoms. Negative results do not preclude SARS-CoV-2 infection and should not be used as the sole basis for patient management decisions. Negative results must be combined with clinical observations, patient history, and epidemiological information. False negative results may also occur if amplification inhibitors are present in the specimen or if inadequate numbers of organisms are present in the specimen. Optimum specimen types and timing for peak viral levels during infections caused by SARS-CoV-2 have not been fully determined. Collection of multiple specimens (types and time points) from the same patient may be necessary to detect the virus. The test was validated for use with upper respiratory specimens obtained via nasopharyngeal or oropharyngeal swabs in VTM, UTM, M4, M5, M6, saline, and MTM media. The performance of this test has not been established for other specimens. Specimens collected using other FDA recommended Specimen Collection Materials listed in the FDA COVID-19 Diagnostic Technologies communication (August 13, 2019) are processed with the caveat that they were not all validated for use with this test and the result must be interpreted in this context. Furthermore, a false negative results may occur if a specimen is improperly collected, transported or handled. If the virus mutates in the RT-PCR target region, SARS-CoV-2 may not be detected or may be detected less predictably. Inhibitors or other types of interference may produce a false negative result. An interference study evaluating the effect of common cold medications was not performed. This test is not FDA-cleared but its performance characteristics were established by our CLIA-certified, CAP-accredited, high complexity laboratory in accordance with CLIA regulations, College of [place] Pathologists (CAP) guidelines (Aug 06, 2019), and FDA guidance (Jul 18, 2019). This test is only for use under the Food and Drug Administration's Emergency Use Authorization. Performing Lab [employer] 01/13/2020 2:34 EDT [facility] Swab 01/11/2020 10:1 2 EDT 01/11/2020 22:22 EDT Provider Outr Resulting Lab MICROBIOLOGY - GENERAL ORDERABLES [facility] [address] [place], [place] [address] [place] [address] LABORATORY [place], [place] documented in this encounter Visit Diagnoses Not on filedocumented in this encounter Care Teams Windows Infrastructure Engineer Relationship Specialty Start Date End Date Unknown, Provider, PCP - General 07/28/15 documented as of this encounter
--- OUTSIDE RECORDS SUMMARY | 2024-02-25 14:25 | XMS_ITS | Referral Summary ---
Author Organization [facility] Address [address] [place] [address] Care Team Providers Care Flight Controls Engineer Name Role Phone Unknown, Provider Primary Care Provider + [phone] Allergies Active Allergy Reactions Criticality Noted Date [...] Take 40 mg by mouth daily. From [facility] in [place] Active albuterol 90 mcg/actuation inhaler Inhale 1 [...] Plan: Mood stable. No SI/HI. Opiate addiction ([facility]) 07/05/2015 Overview: History oral and intranasal opiate abuse. No h/o IVDU. Currently on MAT through [facility] in [place], Methadone 40mg daily. 07/08/2015: Called [facility] to confirm dosing, 40mg. Last Assessment & Plan: Stable on 40 mg of Methadone. Social History Tobacco Use Types Packs/Day Years Used Date Smoking Tobacco: Never Assessed Interpersonal Safety Answer Date Record ed Physically Hurt Never 12/30/2019 Verbally Threaten Not on file 12/30/2019 Sex and Gender Information Value Date Recorded Sex Assigned at Not on file Gender Identity Not on file Sexual Orientation Not on file Last Filed Vital Signs Vital Sign [place] [...] 24.1 07/29/2015 1007 EST Plan of Treatment Not on file Procedures Procedure Name Priority Date/Time Associated Diagnosis Comments HCV RNA DETECT QUANT Routine 06/07/2023 11:03 EST from Last 3 Months or Most Recently Relevant to Health Maintenance Results * HCV RNA DETECT QUANT (06/07/2023 11:03 EST) HCV RNA Qualitative Undetected Undetected 06/10/2023 11:32 EST [facility] Blood VENOUS BLOOD / Unknown 06/07/2023 11:03 EST 06/07/2023 22:09 EST Narrative [facility] - 06/10/2023 11:32 EST The quantification range of this assay is 15 IU/mL to 100,000,000 IU/mL. Testing was performed using the Kristen HCV test ([employer] with the kristen [id number] System. Provider Outr Resulting Lab CHEMISTRY & BLOOD GAS ORDERABLES [facility] [address] [place] [address] from Last 3 Months or Most Recently Relevant to Health Maintenance [facility] [place] [address] Glopavelett, Erin E Personal/Famil y Self [address] [place] [address] Glodgett, Erin E Personal/Famil y Self 1990 [address] [facility] [place] [address] Glodgett, Erin E Personal/Famil y Self 1990 [address] [facility] [place] [address] Glodgett, Erin E Personal/Famil y Self 1990 [address] [facility] [place] [address] Glodgett, Erin E Personal/Famil y Self 1990 [address] [facility] [place] [address] Glodgett, Erin E Personal/Famil y Self 1990 [address] [facility] [place] [address] Glodgett, Erin E Personal/Famil y Self 1990 [address] [place] [address] Advance Directives For more information, please contact: [phone] * Full Code (Latest Code Status on File) Date Activated Date Inactivated Comments 08/03/2015 19:42 08/03/2015 23:56 Question Answer Comments Reason for decision includes: Full code consistent with overall plan of care Who participated in the discussion? Not Discusse d Care Teams Flight Controls Engineer Relationship Specialty Start Date End Date Unknown, Provider, PCP - General 07/28/15
--- OUTSIDE RECORDS SUMMARY | 2024-02-25 14:25 | XMS_ITS | Continuity of Care Document ---
Author Organization [facility] Address [address] [place] [address] Care Team Providers Care Box Office Agent Name Role Phone Kike Blanco Primary Care Physician Encounter [id number] Date(s): 10/26/22 - 10/26/[address] [address] Encounter Diagnosis ADHD (attention deficit hyperactivity disorder)(Discharge Diagnosis) - 10/26/22 Discharge Disposition: Home or Self Care Attending [...] Methadone and Metabolite Confirmation Panel, Urine CTOX 10/26/22 Immunizations Given and Recorded Vaccine Date Status [...] TID, # 90 tab, 2 Refill(s), Pharmacy: [facility] #[id number] Start Date: 08/10/22 Stop Date: 11/08/22 Status: Ordered LaMICtal 100 mg oral tablet 100 mg = 1 tab, Oral, TID, # 90 tab, 2 Refill(s), Pharmacy: [facility] #[id number] Start Date: 04/02/22 Stop Date: 07/01/22 Status: Ordered methylphenidate 20 mg oral tablet 20 mg = 1 tab, Oral, TID, Please fill 04/30/2022, # 84 tab, 0 Refill(s), Pharmacy: [facility] #[id number] Start Date: 04/02/22 Stop Date: 04/30/22 Status: Ordered methylphenidate 20 mg oral tablet 20 mg = 1 tab, Oral, TID, # 84 tab, 0 Refill(s), Pharmacy: [facility] #[id number] Start Date: 04/02/22 Stop Date: 04/30/22 Status: Ordered methylphenidate 20 mg oral tablet 20 mg = 1 tab, Oral, TID, 05/28/2022, # 84 tab, 0 Refill(s), Pharmacy: [facility] #[id number] Start Date: 04/02/22 Stop Date: 04/30/22 Status: Ordered methylphenidate 20 mg oral tablet 20 mg = 1 tab, Oral, TID, # 84 tab, 0 Refill(s), Pharmacy: [facility] #[id number] Start Date: 07/20/22 Stop Date: 08/17/22 Status: Ordered QUEtiapine 50 mg oral tablet 50 mg = 1 tab, Oral, every night at bedtime, # 30 tab, 0 Refill(s), Pharmacy: [facility] #[id number] Start Date: 06/25/22 Stop Date: 07/25/22 Status: Ordered QUEtiapine 50 mg oral tablet 50 mg = 1 tab, Oral, every night at bedtime, # 30 tab, 0 Refill(s), Pharmacy: [facility] #[id number] Start Date: 10/26/22 Stop Date: 11/25/22 Status: Ordered Ritalin 20 mg oral tablet 20 mg = 1 tab, Oral, TID, Please fill 08/20/2022, # 84 tab, 0 Refill(s), Pharmacy: [facility] #[id number] Start Date: 08/10/22 Stop Date: 09/07/22 Status: Ordered Ritalin 20 mg oral tablet 20 mg = 1 tab, Oral, TID, # 84 tab, 0 Refill(s), Pharmacy: [facility] #[id number] Start Date: 10/26/22 Stop Date: 11/23/22 Status: Ordered Problem List Condition Confirmation Course Effective Dates Status Health St atus Informant Bipolar disorder, unspecified Confirmed Active Encounter for medication management Confirmed Active Results Laboratory List Name Date Drug Screen Urine (Drug Screen Urine w/ Reflex) 10/26/22 Most recent to oldest [Reference Range]: 1 U Amph Scrn [Negative] Negative (10/26/22 1:01 PM) U Benzodia Scrn [Negative] Negative (10/26/22 1:01 PM) U Cocaine Scrn [Negative] Negative (10/26/22 1:01 PM) U Katlyn Scrn [Negative] Negative (10/26/22 1:01 PM) U Opiate Scrn [Negative] Negative (10/26/22 1:01 PM) U Oxy Scrn [Negative] Negative (10/26/22 1:01 PM) U PCP Scrn [Negative] Negative (10/26/22 1:01 PM) U THC Scr [Negative] Negative (10/26/22 1:01 PM) U PPX Scr [Negative] Negative (10/26/22 1:01 PM) U Methadone Scr [Negative] Positive *ABN* (10/26/22 1:01 PM) U Buprenorph Scr [Negative] Negative (10/26/22 1:01 PM) U mAMP Scr [Negative] Negative (10/26/22 1:01 PM) U TCA Scr [Negative] Negative (10/26/22 1:01 PM) Social History Social History Type Response Sex Female Patient Care team information Care Team Personnel Name: Kike Blanco MD Position: Physician Member Role: Primary Care Physician Address: Address: [place] [address]- Care Team Related Persons Name: FRANCHESKA BELLE Address: Home [address] [place] [phone] [place] Name: FRANCHESKA BELLE Address: Home [address] [place] [phone] Name: MARCO A BELLE Address: [address] [phone]
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
--- OUTSIDE RECORDS SUMMARY | 2024-02-25 14:26 | XMS_ITS | Encounter Summary ---
Author Organization [facility] Address [address] [place] [address] Care Team Providers Care Sql Tech Name Role Phone None, Provider Primary Care Provider Unavailabl e Encounter Details Date Type Department Care Team (Late st Contact Info) Description 07/08/2015 Orders Only [facility] OBGYN Services - [facility] [address] [place] [address] Kathryn Hooper, RN [address] [place] [address] Social History Tobacco Use Types Packs/Day Years Used Date Smoking Tobacco: Never Assessed Comments Yes Sex and Gender Information Value Date Recorded Sex Assigned at Not on file Gender Identity Not on file Sexual Orientation Not on file documented as of this encounter Ordered Prescriptions Prescription Sig Dispensed Refills Start Date End Da te ferrous sulfate 325 mg (65 mg iron) tablet Take 1 Tab by mouth daily. 30 Tab 3 07/08/2015 albuterol 90 mcg/actuation inhaler Inhale 1 Puff as directed every 4 hours as needed for Wheezing. 1 Inhaler 2 07/08/2015 documented in this encounter Plan of Treatment Not on file documented as of this encounter Visit Diagnoses Not on filedocumented in this encounter Discontinued Medications Medication Sig Discontinue Reason Start Date End Da te albuterol 90 mcg/actuation inhaler Inhale 1 Puff as directed every 4 hours as needed for Wheezing. Reorder 07/08/2015 07/08/2015 ferrous sulfate 325 mg (65 mg iron) tablet Take 1 Tab by mouth daily. Reorder 07/08/2015 07/08/2015 documented as of this encounter Care Teams Sql Tech Relationship Specialty Start Date End Date None, Provider PCP - General 01/25/15 07/27/15 documented as of this encounter
--- OUTSIDE RECORDS SUMMARY | 2024-02-25 14:26 | XMS_ITS | Encounter Summary ---
Author Organization [facility] Address [address] [place] [address] Care Team Providers Care Forestry Patrolman Name Role Phone Unknown, Provider Primary Care Provider + [phone] Encounter Details Date Type Department Care Team (Late st Contact Info) Description 04/07/2013 Results Only [facility] [phone] Amy Barrett, PHARMACY PICKING TECH [address] [place] [address] Social History Tobacco Use Types Packs/Day Years [...] REFLEX TO HCV RNA BY PCR Routine 04/07/2013 9:40 EST COMPLETE BLOOD COUNT Routine 04/07/2013 9:40 EST HIV 1/2 ANTIGEN AND ANTIBODY, 4TH GENERATION Routine 04/07/2013 9:40 EST documented in this encounter Results * HIV 1/2 ANTIBODY (04/07/2013 9:40 EST) HIV 1/2 Antibody Negative [facility] Comment: Reference Range: ??Negative Assayed utilizing [employer] chemiluminescent technology. 04/07/2013 9:40 EST 04/07/2013 15:27 EST Amy Karson Barrett PHARMACY PICKING TECH IMMUNOLOGY AND SEROL OGY ORDERABLES Performing Organization Address City/[facility]/ZIP Co de Phone Number [facility] [address] [place] [address] * HEPATITIS C ANTIBODY (04/07/2013 9:40 EST) Hepatitis C Ab Negative [facility] Comment:Reference Range: Neg ative 04/07/2013 9:40 EST 04/07/2013 15:27 EST Amy Karson Barrett PHARMACY PICKING TECH CHEMISTRY & BLOOD GA S ORDERABLES Performing Organization Address [facility]/ZIP Co de Phone Number [facility] [address] [place] [address] * (ABNORMAL) HEMAGRAM (04/07/2013 9:40 EST) Pathologist [facility] WBC 8.29 4.0 - 12.4 K/cmm [facility] RBC 4.50 3.86 - 5.04 M/cmm [facility] Hemoglobin 13.6 11.6 - 15.2 gm/dl [facility] HCT 41.1 34.9 - 44.4 % [facility] MCV 91 81 - 98 fl [facility] MCH 30.2 26.7 - 33.3 pg [facility] MCHC 33.1 32.1 - 35.9 gm/dl [facility] PLT 361(H) 141 - 320 K/cmm [facility] RDW-CV 12.6 11.7 - 14.6 % [facility] 04/07/2013 9:40 EST 04/07/2013 15:27 EST Amy Barrett PHARMACY PICKING TECH HEMATOLOGY & PF4 ORD ERABLES Performing Organization Address City/[facility]/ZIP Co de Phone Number [facility] [address] [place] [address] documented in this encounter Visit Diagnoses Not on filedocumented in this encounter Care Teams Forestry Patrolman Relationship Specialty Start Date End Date Unknown, Provider, PCP - General 07/10/12 01/19/15 documented as of this encounter
--- OUTSIDE RECORDS SUMMARY | 2024-02-25 14:26 | XMS_ITS | Encounter Summary ---
Author Organization [facility] Address [address] [place] [address] Care Team Providers Care Stenciling Machine Tender Name Role Phone Unavailable Primary Care Provider Unavailabl e Encounter Details Date Type Department Care Team (Late st Contact Info) Description 07/07/2012 Results Only [facility] Laboratory Services - [facility] ([facility]) [address] [place], [place] [address] Dominiqeu Moreno MD [address] [place] [address] [address] [place], [place] [id number] Social History Tobacco Use Types Packs/Day Years Used Date Smoking Tobacco: Never Assessed Sex and Gender Information Value Date Recorded Sex Assigned at Not on file Gender Identity Not on file Sexual Orientation Not on file documented as of this encounter Plan of Treatment Not on file documented as of this encounter Procedures Procedure Name Priority Date/Time Associated Diagnosis Comments PAP TEST- RESULT ONLY Routine 07/07/2012 0:00 EST documented in this encounter Results * PAP TEST- RESULT ONLY (07/07/2012 0:00 EST) Pathology Report: CYTOPATHOLOGY REPORT Reports generated via electronic interface contain original data; however they are lacking the format of the original report. Caution should be taken when reading/interpreti ng unformatted reports. Name: ? NIKICYRUS VAISHALI ? Accession #: ? [id number] : ? 1990 (Age: 21) ??F ?Collect Date: ? 07/07/2012 Location: ? [facility] ? Receive Date: ? 07/09/2012 Provider: ?DOMINIQUE MORENO MD Copy to: ? Specimen/Source: ?Pap Test, Cervix/Endocervix, ThinPrep Imaging System with manual evaluation Last Menstrual Period: ? 05/31/2012 Other: ? Additional clinical information: pap WNL 08/26 ? SPECIMEN ADEQUACY ? Satisfactory for Evaluation - transformation zone component present GENERAL CATEGORIZATION ? Negative for Intraepithelial Lesion or Malignancy INTERPRETATION ? Reactive cellular changes associated with inflammation present (includes repair). Shift in araceli present suggestive of bacterial vaginosis. ? Document reviewed and electronically signed by: ? JOANN WOOD MD ? Report Date: ??07/15/2012 16:40 End of Report SUSAN OWEN 07/07/2012 07/09/2012 Dominique Moreno MD PATHOLOGY ORDERABLES Performing Organization Address City/State/[facility] Co de Phone Number SUSAN OWEN [address] [place] [address] documented in this encounter Visit Diagnoses Not on filedocumented in this encounter
--- OUTSIDE RECORDS SUMMARY | 2024-02-25 14:26 | XMS_ITS | Encounter Summary ---
Author Organization [facility] Address [address] [place] [address] Care Team Providers Care Teradata Solution Architect Name Role Phone None, Provider Primary Care Provider Unavailabl e Encounter Details Date Type Department Care Team (Late st Contact Info) Description 07/11/2015 10:24 EST - 07/11/2015 23:59 EST Hospital Encounter [facility] [phone] Usha Valdovinos MD [address] [facility], [address] [place] [address] Discharge Disposition: Home or Self Care Social History Tobacco Use Types Packs/Day Years Used Date Smoking Tobacco: Never Assessed Comments Yes Sex and Gender Information Value Date Recorded Sex Assigned at Not on file Gender Identity Not on file Sexual Orientation Not on file documented as of this encounter Discharge Diagnoses Diagnosis Z36 Encounter for screening of mother-Z36[ICD-10-CM] documented in this encounter Medications at Time of Discharge Medication Sig Dispensed Refills Start Date End Date albuterol 90 mcg/actuation inhaler Inhale 1 Puff as directed every 4 hours as needed for Wheezing. 1 Inhaler 2 07/08/2015 ferrous sulfate 325 mg (65 mg iron) tablet Take 1 Tab by mouth daily. 30 Tab 3 07/08/2015 methadone (DOLOPHINE) 5 mg/5 mL oral solutionIndications:opio id dependence Take 40 mg by mouth daily. From [facility] in [place] PNV NO.122/IRON/FOLIC ACID ( MULTI ORAL) Take by mouth. documented as of this encounter Discharge Disposition Disposition Code Departure Means Destination Home or Self Skilled Nursing documented in this encounter Plan of Treatment Not on file documented as of this encounter Visit Diagnoses Not on filedocumented in this encounter Care Teams Teradata Solution Architect Relationship Specialty Start Date End Date None, Provider PCP - General 01/25/15 07/27/15 documented as of this encounter
--- OUTSIDE RECORDS SUMMARY | 2024-02-25 14:26 | XMS_ITS | Encounter Summary ---
Author Organization [facility] Address [address] [place] [address] Care Team Providers Care Noc Engineer Name Role Phone None, Provider Primary Care Provider Unavailabl e Reason for Visit * Reason Onset Date Comments Appointment Related 06/15/2015 Encounter Details Date Type Department Care Team (Late st Contact Info) Description 06/15/2015 Telephone [facility] [address] [place] [address] Kathryn Hooper, RN [address] [place] [address] Appointment Related Social History Tobacco Use Types Packs/Day Years Used Date Smoking Tobacco: Never Assessed Sex and Gender Information Value Date Recorded Sex Assigned at Not on file Gender Identity Not on file Sexual Orientation Not on file documented as of this encounter Miscellaneous Notes * Telephone Encounter - Kathryn Hooper, RN - 06/15/2015 1120 EST ATR Erin to discuss and schedule a transfer of care, but there was no answer. Message was left asking her to call back. documented in this encounter Plan of Treatment Not on file documented as of this encounter Visit Diagnoses Not on filedocumented in this encounter Care Teams Noc Engineer Relationship Specialty Start Date End Date None, Provider PCP - General 01/25/15 07/27/15 documented as of this encounter
--- OUTSIDE RECORDS SUMMARY | 2024-02-25 14:26 | XMS_ITS | Encounter Summary ---
Author Organization [facility] Address [address] [place] [address] Care Team Providers Care Director Customer Name Role Phone None, Provider Primary Care Provider Rushabl e Unknown, Provider Primary Care Provider + [phone] Encounter Details Date Type Department Care Team (Late st Contact Info) Description 06/28/2015 Documentation Visit [facility] OBGYN Services - [facility] [address] [place] [address] Crystal Villa MD [address] [address] Social History Tobacco Use Types Packs/Day Years [...] filedocumented in this encounter Care Teams Director Customer Relationship Specialty Start Date End Date None, Provider PCP - General 01/25/15 07/27/15 Unknown, ProviderMD PCP - General 07/28/15 documented as of this encounter
--- OUTSIDE RECORDS SUMMARY | 2024-02-25 14:26 | XMS_ITS | Encounter Summary ---
Author Organization [facility] Address [address] [place] [address] Care Team Providers Care Gaming Cage Worker Name Role Phone Unknown, Provider Primary Care Provider + [phone] Reason for Visit * Reason Onset Date Comments Contractions 08/03/2015 Encounter Details Date Type Department Care Team (Late st Contact Info) Description 08/03/2015 Telephone [facility] OBGYN Services - [facility] [address], [place] [id number] Blessing Phan RN Contractions Social History Tobacco Use Types Packs/Day Years Used Date Smoking Tobacco: Never Assessed Comments Yes Sex and Gender Information Value Date Recorded Sex Assigned at Not on file Gender Identity Not on file Sexual Orientation Not on file documented as of this encounter Miscellaneous Notes * Telephone Encounter - Blessing Phan - 08/03/2015 1451 EDT Pt called with strong contractions every 4 min lasting 1 min. Has been having contractions x 1 day,but stronger since this morning. In [place]. Advised pt to come to [facility] Called [facility] documented in this encounter Plan of Treatment Not on file documented as of this encounter Visit Diagnoses Not on filedocumented in this encounter Care Teams Gaming Cage Worker Relationship Specialty Start Date End Date Unknown, Provider, PCP - General 07/28/15 documented as of this encounter
--- OUTSIDE RECORDS SUMMARY | 2024-02-25 14:26 | XMS_ITS | Encounter Summary ---
Author Organization [facility] Address [address] [place] [address] Care Team Providers Care Principal Planner Name Role Phone None, Provider Primary Care Provider Unavailabl e Encounter Details Date Type Department Care Team (Latest Contact Info) Description 01/26/2015 8:36 EDT - 01/26/2015 23:[address] [facility] [phone] Jaret Daley MD [address] [place] [address] Discharge Disposition: Home or Self Care Social History Tobacco Use Types Packs/Day Years Used Date Smoking Tobacco: Never Assessed Sex and Gender Information Value Date Recorded Sex Assigned at Not on file Gender Identity Not on file Sexual Orientation Not on file documented as of this encounter Discharge Diagnoses Diagnosis V28.89 OTHER SPECIFIED SCREENING[ICD-9-CM] documented in this encounter Discharge Disposition Disposition Code Departure Means Destination Home or Self Long Term documented in this encounter Plan of Treatment Not on file documented as of this encounter Visit Diagnoses Not on filedocumented in this encounter Care Teams Principal Planner Relationship Specialty Start Date End Date None, Provider PCP - General 01/25/15 07/27/15 documented as of this encounter
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
--- OUTSIDE RECORDS SUMMARY | 2024-02-25 14:26 | XMS_ITS | Encounter Summary ---
Author Organization [facility] Address [address] [place] [address] Care Team Providers Care Agriculture Specialist Name Role Phone None, Provider Primary Care Provider Unavailabl e Reason for Visit * Reason Comments Routine Visit Encounter Details Date Type Department Care Team (Late st Contact Info) Description 07/15/2015 11:20 EST Routine [facility] OBGYN Services - [address] [phone] Yanelis Mcknight MD [address] [facility], [address] [place] [phone] Yarelis Ridley MD [address] [place] [address] [place]: [id number] Social History Tobacco Use Types Packs/Day Years Used Date Smoking Tobacco: Never Assessed Comments Yes Sex and Gender Information Value Date Recorded Sex Assigned at Not on file Gender Identity Not on file Sexual Orientation Not on file documented as of this encounter Last Filed Vital Signs Vital Sign Reading Time Taken Comments Blood Pressure 104/58 07/15/2015 1148 EST Pulse - - Temperature - - Respiratory Rate - - Oxygen Saturation - - Inhaled Oxygen Concentration - - Weight 63.6 kg (140 lb 3.2 oz) 07/15/[address] Height 160 cm (5' 2.99) 07/15/2015 1148 EST Body Mass Index 24.84 07/15/2015 1148 EST documented in this encounter Progress Notes * Jackie Cr MD - 07/18/2015 0747 EST [facility] Attending I discussed the pt with Dr. Ridley at the time of the visit. I agree with impression and plan as above. Jackie Cr MD * Yarelis Ridley MD - 07/15/2015 1241 EST R4 Antepartum [facility] Note CC: Erin Esparza is a 24 y.o. @ 37w0d by 5+6wk Subjective: Doing well. Reports good FM, no ctx, no VB. Unsure about LOF, felt some watery discharge on Saturday, with some discharge since. Thinks maybe it's a yeast infection, unsure. Objective: Vitals: BP: 104/58 mmHg Height: 160 cm (62.99) Weight : 63.594 kg (140 lb 3.2 oz) BMI: 24.894 Fundal Height (cm): 31 cm Heart Rate: 120 Movement: Present SSE: neg pool, neg fern, neg nitrazine, normal physiological discharge seen Assessment/Plan: Erin Esparza is a 24 y.o. @ 37w0d by 5+6wk Supervision of high-risk PNL. GBS neg, patient informed. GCCT from last appointment neg. Still deciding on Nexplanon vs other forms of contraception. C/o discharge, SROM check negative, vaginitis swab collected, pending. Chlamydia infection, current Repeat GCCT from [facility]/NELL negative. Opiate addiction Methadone 40mg, [facility] in [place]. Discussed appropriate labour precautions RTC 1wk Discussed with Dr. Cr. Yarelis Ridley MD 07/15/2015 12:41 documented in this encounter Miscellaneous Notes * Assessment & Plan Note - Yarelis Ridley MD - 07/15/2015 1844 ESTAssociated Problem(s): Opiate addiction ([facility]) Methadone 40mg, [facility] in [place]. * Assessment & Plan Note - Yarelis Ridley MD - 07/15/2015 1843 ESTAssociated Problem(s): Chlamydia infection, current Repeat GCCT from [facility]/NELL negative. * Assessment & Plan Note - Yarelis Ridley MD - 07/15/2015 1842 ESTAssociated Problem(s): Supervision of high-risk PNL. GBS neg, patient informed. GCCT from last appointment neg. Still deciding on Nexplanon vs other forms of contraception. C/o discharge, SROM check negative, vaginitis swab collected, pending. documented in this encounter Plan of Treatment Not on file documented as of this encounter Procedures Procedure Name Priority Date/Time Associated Diagnosis Comments ZZVAGINITIS EXAM Routine 07/15/2015 13:0 8 EST Vaginal discharge documented in this encounter Results * VAGINITIS EXAM (07/15/2015 13:08 EST) Gram Smear Result Yeast forms present 07/15/2015 22:58 EST [facility] Result No Trichomonas antigen detected. 07/15/2015 22:31 EST [facility] Gram Smear Result Smear NOT consistent with bacterial vaginosis. 07/15/2015 22:58 EST [facility] Specimen of unknown material (specimen) VAGINAL STRUCTURE / Unknown 07/15/2015 13:08 EST 07/15/2015 15:00 EST Yanelis Mcknight MD MICROBIOLOGY - GEN ERAL ORDERABLES [facility] [address] [place] [address] documented in this encounter Visit Diagnoses Diagnosis Vaginal discharge- Primary Leukorrhea, not specified as infective Supervision of high-risk , third trimester documented in this encounter Care Teams Agriculture Specialist Relationship Specialty Start Date End Date None, Provider PCP - General 01/25/15 07/27/15 documented as of this encounter
--- OUTSIDE RECORDS SUMMARY | 2024-02-25 14:26 | XMS_ITS | Encounter Summary ---
Author Organization [facility] Address [address] [place] [address] Care Team Providers Care Tea Leaf Reader Name Role Phone Unavailable Primary Care Provider Unavailabl e Encounter Details Date Type Department Care Team (Latest Contact Info) Description 07/07/2012 11:01 EST - 07/07/2012 11:02 [facility] Hospital Encounter [facility] [address] [place] [address] Pierre Moreno MD [address] [place] [address] DR ORR [address] [place] [address] Discharge Disposition: Home or Self Care Social History Tobacco Use Types Packs/Day Years Used Date Smoking Tobacco: Never Assessed Sex and Gender Information Value Date Recorded Sex Assigned at Not on file Gender Identity Not on file Sexual Orientation Not on file documented as of this encounter Discharge Disposition Disposition Code Departure Means Destination Home or Self Care documented in this encounter Plan of Treatment Not on file documented as of this encounter Visit Diagnoses Not on filedocumented in this encounter
--- OUTSIDE RECORDS SUMMARY | 2024-02-25 14:26 | XMS_ITS | Encounter Summary ---
Author Organization [facility] Address [address] [place] [address] Care Team Providers Care News Agent Name Role Phone Unknown, Provider Primary Care Provider + [phone] Encounter Details Date Type Department Care Team (Late st Contact Info) Description 07/10/2018 Results Only [facility] [phone] Dominique Moreno MD [address] [place] [address] [address] [place], [place] [id number] Social History Tobacco Use Types Packs/Day Years [...] Diagnosis Comments PAP TEST- RESULT ONLY Routine 07/10/2018 0:00 EST documented in this encounter Results * PAP TEST- RESULT ONLY (07/10/2018 0:00 EST) Pathology Report: CYTOPATHOLOGY REPORT Reports generated via electronic interface contain original data; however they are lacking the format of the original report. Caution should be taken when reading/interpreti ng unformatted reports. Name: ? ALAINASAMIVAISHALI BRIDGES ? Accession #: ? [id number] : ? 1990 (Age: 27) ??F ?Collect Date: ? 07/10/2018 Location: ? [facility] ? Receive Date: ? 07/11/2018 Provider: ?DOMINIQUE MORENO MD Copy to: ? Specimen/Source: ?Pap Test, Cervix/Endocervix, ThinPrep Imaging System with manual evaluation Last Menstrual Period: ? 02/20/18 Menstrual/Pregnanc y Status: ? Other: ? Previous NIL Pap(s): 08/26, 07/02, 01/20/15 Additional clinical information: Z12.4 Z11.3 Z11.8 Z33.1 ? SPECIMEN ADEQUACY ? Satisfactory for Evaluation - transformation zone component present GENERAL CATEGORIZATION ? Negative for Intraepithelial Lesion or Malignancy ? Document reviewed and electronically signed by: ? FRANCINE Aaron(ASCP) ? Report Date: ??07/15/2018 15:53 End of Report [facility] 07/10/2018 07/11/2018 Dominique Moreno MD PATHOLOGY ORDERABLES [facility] [address] [place] [address] documented in this encounter Visit Diagnoses Not on filedocumented in this encounter Care Teams News Agent Relationship Specialty Start Date End Date Unknown, Provider, PCP - General 07/28/15 documented as of this encounter
--- OUTSIDE RECORDS SUMMARY | 2024-02-25 14:26 | XMS_ITS | Encounter Summary ---
Author Organization [facility] Address [address] [place] [address] Care Team Providers Care Electronics Computer Mechanic Name Role Phone None, Provider Primary Care Provider Hang e Unknown, Provider Primary Care Provider + [phone] Reason for Visit * Reason Onset Date Comments Initial Visit 06/28/2015 Encounter Details Date Type Department Care Team (Late st Contact Info) Description 06/28/2015 Orders Only [facility] OBGYN Services - [facility] [address] [place], [place] [phone] Crystal Villa MD [address] [phone] Encounter for supervision of normal first in third trimester (Primary Dx) Social History Tobacco Use Types Packs/Day Years Used Date Smoking Tobacco: Never Assessed Comments Yes Sex and Gender Information Value Date Recorded Sex Assigned at Not on file Gender Identity Not on file Sexual Orientation Not on file documented as of this encounter Progress Notes * Lesley Conde - 06/28/2015 1131 EST GBS order pended documented in this encounter Plan of Treatment Not on file documented as of this encounter Visit Diagnoses Diagnosis Encounter for supervision of normal first in third trimester- Primary Supervision of normal first documented in this encounter Care Teams Electronics Computer Mechanic Relationship Specialty Start Date End Date None, Provider PCP - General 01/25/15 07/27/15 Unknown, ProviderMD PCP - General 07/28/15 documented as of this encounter
--- OUTSIDE RECORDS SUMMARY | 2024-02-25 14:26 | XMS_ITS | Encounter Summary ---
Author Organization [facility] Address [address] [place] [address] Care Team Providers Care Radiology Asst Name Role Phone None, Provider Primary Care Provider Unavailabl e Reason for Visit * Reason Onset Date Comments Other 07/26/2015 Encounter Details Date Type Department Care Team (Late st Contact Info) Description 07/26/2015 Telephone [facility] OBGYN Services - [facility] [address] [place] [address] Dolores Erickson, RN [address] [place] [address] Other Social History Tobacco Use Types Packs/Day Years Used Date Smoking Tobacco: Never Assessed Comments Yes Sex and Gender Information Value Date Recorded Sex Assigned at Not on file Gender Identity Not on file Sexual Orientation Not on file documented as of this encounter Miscellaneous Notes * Telephone Encounter - Dolores Erickson RN - 07/26/2015 1084 EST Received call from Erin who states she is calling to let the clinic know that she has lost her mucus plug. Advised the patient that this is normal however doesn't tell us much about when she willgo into labor. Patient denies other sign of labor at this time. Advised patient if she was to develop consistent contractions every 5-6 minutes for longer then an hour, vaginal bleeding or bloody show, LOF or if she notices a decrease in movement to call. Patient verbalizes understanding. Denies further questions at this time. documented in this encounter Plan of Treatment Not on file documented as of this encounter Visit Diagnoses Not on filedocumented in this encounter Care Teams Radiology Asst Relationship Specialty Start Date End Date None, Provider PCP - General 01/25/15 07/27/15 documented as of this encounter
--- OUTSIDE RECORDS SUMMARY | 2024-02-25 14:26 | XMS_ITS | Encounter Summary ---
Author Organization [facility] Address [address] [place] [address] Care Team Providers Care Shop Foreman Name Role Phone Unavailable Primary Care Provider Unavailabl e Encounter Details Date Type Department Care Team (Late st Contact Info) Description 08/25/2008 Before [facility] Converted Visit ([facility]) [facility] - [facility] conversion [address] [place] [address] Anthony Nielson MD Social History Tobacco Use Types Packs/Day Years Used Date Smoking Tobacco: Never Assessed Sex and Gender Information Value Date Recorded Sex Assigned at Not on file Gender Identity Not on file Sexual Orientation Not on file documented as of this encounter Plan of Treatment Not on file documented as of this encounter Procedures Procedure Name Priority Date/Time Associated Diagnosis Comments CYTOPATHOLOGY Routine 08/25/2008 0:00 EDT documented in this encounter Results * CYTOPATHOLOGY (08/25/2008 0:00 EDT) Pathology Report: CYTOPATHOLOGY REPORT ? Reports generated via electronic interface contain original data; ? however they are lacking the format of the original report. ? Caution should be taken when reading/interpreti ng unformatted reports. ? Name: ? VAISHALI ESPARZA ? Accession #: ? [id number] ? : ? 1990 (Age: 17) ??F ?Collect Date: ? 08/25/2008 ? Location: ? [facility] ? Receive Date: ? 08/27/2008 ? Provider: ?ANTHONY B NIELSON MD ? Copy to: ? Specimen/Source: ?Pap Test, Cervix/Endocervix, ThinPrep Imaging System ? with manual evaluation ? Last Menstrual Period: ? Other: ? HPVA - HPV testing requested if ASC-US on the current ThinPrep Pap test. ? SPECIMEN ADEQUACY ? Satisfactory for Evaluation ? - transformation zone component present ? GENERAL CATEGORIZATION ? Negative for Intraepithelial Lesion or Malignancy ? Document reviewed and electronically signed by: ? Lynan Vignesh, CT(ASCP) ? Report Date: ??08/30/2008 14:11 ? End of Report ? [facility] 08/25/2008 08/27/2008 Anthony Nielson MD PATHOLOGY ORDERABLES Performing Organization Address City/State/[facility] Co de Phone Number [facility] [address] [place] [address] documented in this encounter Visit Diagnoses Not on filedocumented in this encounter
--- OUTSIDE RECORDS SUMMARY | 2024-02-25 14:26 | XMS_ITS | Encounter Summary ---
Author Organization [facility] Address [address] [place] [address] Care Team Providers Care Public Relations Assistant Name Role Phone Unknown, Provider Primary Care Provider + [phone] Encounter Details Date Type Department Care Team (Latest Contact Info) Description 04/07/2013 10:01 EST - 04/07/2013 10:02 [facility] Hospital Encounter [address] [address] Amy Barrett, ONLINE MEDIA DIRECTOR [address] [place] [address] Discharge Disposition: Home or Self Care Social History Tobacco Use Types Packs/Day Years Used Date Smoking Tobacco: Never Assessed Sex and Gender Information Value Date Recorded Sex Assigned at Not on file Gender Identity Not on file Sexual Orientation Not on file documented as of this encounter Discharge Diagnoses Diagnosis V01.79 CONTACT OR EXPOSURE TO OTHER VIRAL DISEASES[ICD-9-CM] documented in this encounter Discharge Disposition Disposition Code Departure Means Destination Home or Self Care documented in this encounter Plan of Treatment Not on file documented as of this encounter Procedures Procedure Name Priority Date/Time Associated Diagnosis Comments CUSTODIAL ULTRASCREEN (INCLUDES SEQUENTIAL SCREEN) 01/26/2015 15:44 EDT documented in this encounter Results * CUSTODIAL ULTRASCREEN (01/26/2015 15:44 EDT) Anatomical Region Laterality Modality Other 01/26/2015 15:4 4 EDT 01/26/2015 16:19 EDT Narrative 01/26/2015 16:19 EDT Indication Screening for chromosome abnormalities by nuchal translucency screening. History ======= General History Height 157 cm Height (ft) ?5 ft Height (in) ?2 in Previous Outcomes ?3 Para ?? 0 Abortions (A) ??2 Maternal Assessment Height 157 cm Height (ft) ?5 ft Height (in) ?2 in Physical Exam Initial weight 53 kg Initial weight (lb) ?117 lb Initial BMI ?21.40 kg/m? Number of fetuses: 1. Dating ======= Cycle: LMP date not known Method of dating: ??based on the stated dating Stated Dating on: ?12/15/2014 GA at stated dating date 6 w + 5 d Stated dating by: ?outside ultrasound GA by stated dating ??12 w + 5 d BE by stated dating: ?08/05/2015 Ultrasound examination on: 01/26/2015 GA by U/S based upon: ??CRL GA by U/S ??13 w + 3 d BE by U/S: ?07/31/2015 Assigned: ??Dating performed on 01/26/2015, based on the stated dating (on 12/15/2014 by outside ultrasound) Assigned GA ?12 w + 5 d Assigned BE: ??08/05/2015 General Evaluation Cardiac activity: present. Cord vessels: normal insertion. Biometry CRL ?73.9 mm 91% 13w 3d Hadlock NT 1.9 mm FHR ?148 bpm 3% Nicolaides Risk Parameters History Age (at exam date) 24 yrs. U/S Markers Nasal bone: present. cardiac activity: present. FHR 148 bpm. Method ======== Voluson E10, Transabdominal ultrasound examination. Sufficient. Impression NOTE: This study was ordered as an NT ONLY so maternal and anatomy assessments were not performed. 10779 Nuchal translucency measurement This is a reynolds gestation. Nuchal translucency is 1.9 mm. Omphalocele is not present. Note that ACOG Practice Bulletin 77 points out that the inclusion of second trimester serum markers improve detection rates for Down syndrome; however if you wish to combine second trimester analytes, you must send the serum to [facility] at 15-16 weeks'. They will reanalyze the results including both first and second trimester serum as well as nuchal translucency and maternal age. If you do not wish to include second trimester serum for aneuploidy screening, you may still send serum to [facility] for MSAFP alone to screen for neural tube defects and other obstetrics outcomes associated with an elevated MSAFP. 65041 Blood collection, capillary A fingerstick blood specimen was collected today for first trimester combined screening. Results should be available in about one week. Follow-up Follow-up as clinically indicated. Procedure Note Nickie Daley MD - 01/26/2015 Indication Screening for chromosome abnormalities by nuchal translucency screening. History ======= General History Height 157 cm Height (ft) 5 ft Height (in) 2 in Previous Outcomes 3 Para 0 Abortions (A) 2 Maternal Assessment Height 157 cm Height (ft) 5 ft Height (in) 2 in Physical Exam Initial weight 53 kg Initial weight (lb) 117 lb Initial BMI 21.40 kg/m? Number of fetuses: 1. Dating ======= Cycle: LMP date not known Method of dating: based on the stated dating Stated Dating on: 12/15/2014 GA at stated dating date 6 w + 5 d Stated dating by: outside ultrasound GA by stated dating 12 w + 5 d BE by stated datin08/05/2015 Ultrasound examination on: 01/26/2015 GA by U/S based upon: CRL GA by U/S 13 w + 3 d BE by U/S: 07/31/2015 Assigned: Dating performed on 01/26/2015, based on the stated dating (on 12/15/2014 by outside ultrasound) Assigned GA 12 w + 5 d Assigned BE: 08/05/2015 General Evaluation Cardiac activity: present. Cord vessels: normal insertion. Biometry CRL 73.9 mm 91% 13w 3d Hadlock NT 1.9 mm FHR 148 bpm 3% Nicolaides Risk Parameters History Age (at exam date) 24 yrs. U/S Markers Nasal bone: present. cardiac activity: present. FHR 148 bpm. Method ======== Voluson E10, Transabdominal ultrasound examination. Sufficient. Impression NOTE: This study was ordered as an NT ONLY so maternal and anatomy assessments were not performed. 53289 Nuchal translucency measurement This is a reynolds gestation. Nuchal translucency is 1.9 mm. Omphalocele is not present. Note that ACOG Practice Bulletin 77 points out that the inclusion of second trimester serum markers improve detection rates for Down syndrome; however if you wish to combine second trimester analytes, you must send the serum to [facility] at 15-16 weeks'. They will reanalyze the results including both first and second trimester serum as well as nuchal translucency and maternal age. If you do not wish to include second trimester serum for aneuploidy screening, you may still send serum to [facility] for MSAFP alone to screen for neural tube defects and other obstetrics outcomes associated with an elevated MSAFP. 41228 Blood collection, capillary A fingerstick blood specimen was collected today for first trimester combined screening. Results should be available in about one week. Follow-up Follow-up as clinically indicated. Pierre Moreno MD [facility] ORDERABLE S documented in this encounter Visit Diagnoses Not on filedocumented in this encounter Care Teams Public Relations Assistant Relationship Specialty Start Date End Date Unknown, Provider, PCP - General 07/10/12 01/19/15 documented as of this encounter
--- OUTSIDE RECORDS SUMMARY | 2024-02-25 14:26 | XMS_ITS | Encounter Summary ---
Author Organization [facility] Address [address] [place] [address] Care Team Providers Care Dumpling Machine Operator Name Role Phone None, Provider Primary Care Provider Unavailabl e Reason for Referral * JUNIOR PARALEGAL (Routine) - Closed Specialty Diagnoses / Procedures [facility] Referred To Contact Diagnoses Encounter for screening for chromosomal anomalies Procedures [facility] ROUT[facility] Pedrito Vinson MD [address] [address] Referral ID Status Reason Start Date Expiration Date Visits Re quested Visits Authorized [id number] Closed 07/04/2015 1 1 Encounter Details Date Type Department Care Team (Late st Contact Info) Description 07/04/2015 Orders Only [facility] OBGYN Services - [address] [address] Dolores Erickson, RN [address] [place] [address] Encounter for screening for chromosomal anomalies (Primary Dx) Social History Tobacco Use Types [...] Procedure Name Priority Date/Time Associated Diagnosis Comments [facility] ROUTINE Routine 07/11/2015 9:27 EST Encounter for screening for chromosomal anomalies documented in this encounter Results * [facility] ROUT[facility] (07/11/2015 9:27 EST) Anatomical Region Laterality Modality Other 07/11/2015 9:27 EST 07/11/2015 13:49 EST Narrative 07/11/2015 13:49 EST Indication Screening, opiate dependence. History ======= General History Height 157 cm Height (ft) ?5 ft Height (in) ?2 in Previous Outcomes ?3 Para ?? 0 Abortions (A) ??2 Maternal Assessment Height 157 cm Height (ft) ?5 ft Height (in) ?2 in Physical Exam Initial weight 53 kg Initial weight (lb) ?117 lb Initial BMI ?21.40 kg/m? Screening Tests Wants to know gender: ??yes Number of fetuses: 1. Dating ======= Cycle: LMP date not known Stated Dating on: ?12/15/2014 GA at stated dating date 6 w + 5 d Stated dating by: ?outside ultrasound GA by stated dating ??36 w + 3 d BE by stated dating: ?08/05/2015 Ultrasound examination on: 07/11/2015 GA by U/S based upon: ??AC, BPD, Femur, HC GA by U/S ??35 w + 1 d BE by U/S: ?08/14/2015 Assigned: ??Dating performed on 01/26/2015, based on the stated dating (on 12/15/2014 by outside ultrasound) Assigned GA ?36 w + 3 d Assigned BE: ??08/05/2015 General Evaluation Cardiac activity: present. FHR 132 bpm. movements: visualized. Presentation: cephalic. Placenta: anterior. Umbilical cord: Cord vessels: 3 vessel cord. Cord insertion: placental insertion: normal. Amniotic fluid: Amount of AF: normal. Biometry Biometry BPD ?89.5 mm 56% 36w 2d Hadlock OFD ?109.2 mm ?16% 32w 5d Nicolaides HC 318.4 mm ?12% 35w 6d Hadlock AC 309.8 mm ?20% 34w 6d Hadlock Femur ??65.1 mm 2% 33w 4d Hadlock Cerebellum tr ??50.7 mm >99% Nicolaides Humerus ?56.0 mm 4% 33w 0d Tse EFW ?2,514 g 18% Mcknight Calculated by: Hadlock ([id number]) EFW (lb) ?? 5 lb EFW (oz) ?? 9 oz Cephalic index 0.82 ?75% Chitty HC / AC ?1.03 FL / BPD ?? 0.73 FL / HC ?0.20 FL / AC ?0.21 FHR ?132 bpm Head / Face / Neck Dental Detail Representative 7.3 mm Anatomy Head / Brain Head: ??normal Head: ??Shape and size Brain: normal Brain: Cerebellum, choroid plexus, cisterna magna, lateral cerebral ventricles, midline falx and cavum septi pellucidi Face / Neck / Spine Face: ??normal Face: ??Upper lip Neck: ??normal Neck: ??No neck masses seen Spine: normal Spine: Cervical, thoracic, lumbar and sacral spine and overlying soft tissue Thorax / Heart / Great Vessels Thorax: ?normal Thorax: ?No thoracic abnormalities detected Situs: normal 4-chamber view: ?normal LVOT: ??normal RVOT: ??normal Abdomen Abdom. wall: ?? see comments Stomach: ?? normal Stomach: ?? Presence, size and situs Urinary Tract / Genitals Rt kidney: normal Lt kidney: normal Bladder: ?? normal Bladder: ?? Size and location Gender: ?male Wants to know gender: ??yes Genitals: ??normal Genitals: ??Normal appearing genitalia Extremities / Bony Structures Upper extrem.: normal Upper extrem.: Both upper extremities are seen and appear normal Lower extrem.: normal Lower extrem.: Both lower extremities are seen and appear normal Lt foot: ?? suboptimally visualized Maternal Structures Uterus / Cervix Uterus: ?appears normal Cervix: ?appears normal Ovaries / Tubes / Adnexa Rt ovary: ??Appears normal Rt ovary D1 ?2.8 cm Rt ovary D2 ?2.1 cm Rt ovary D3 ?1.8 cm Rt ovary mean ??2.2 cm Rt ovary Vol. ??5.3 cm? Lt ovary: ??appears normal Lt ovary D1 ?2.4 cm Lt ovary D2 ?2.1 cm Lt ovary D3 ?1.6 cm Lt ovary mean ??2.0 cm Lt ovary Vol. ??4.3 cm? Method ======== Voluson E10, Transabdominal ultrasound examination. Sufficient. Impression [id number] Obstetrical ultrasound with and maternal evaluation This is a reynolds gestation. Biometry is consistent with menstrual dating. The abdominal wall appears normal, but the abdominal cord insertion was poorly seen. Anatomy otherwise appears normal as noted above; however, ultrasound cannot detect all anomalies. There is trunk and extremity movement noted. The amniotic fluid volume appears normal. Follow-up Follow-up as clinically indicated. Procedure Note Usha Valdovinos MD - 07/11/2015 Indication Screening, opiate dependence. History ======= General History Height 157 cm Height (ft) 5 ft Height (in) 2 in Previous Outcomes 3 Para 0 Abortions (A) 2 Maternal Assessment Height 157 cm Height (ft) 5 ft Height (in) 2 in Physical Exam Initial weight 53 kg Initial weight (lb) 117 lb Initial BMI 21.40 kg/m? Screening Tests Wants to know gender: yes Number of fetuses: 1. Dating ======= Cycle: LMP date not known Stated Dating on: 12/15/2014 GA at stated dating date 6 w + 5 d Stated dating by: outside ultrasound GA by stated dating 36 w + 3 d BE by stated datin08/05/2015 Ultrasound examination on: 07/11/2015 GA by U/S based upon: AC, BPD, Femur, HC GA by U/S 35 w + 1 d BE by U/S: 08/14/2015 Assigned: Dating performed on 01/26/2015, based on the stated dating (on 12/15/2014 by outside ultrasound) Assigned GA 36 w + 3 d Assigned BE: 08/05/2015 General Evaluation Cardiac activity: present. FHR 132 bpm. movements: visualized. Presentation: cephalic. Placenta: anterior. Umbilical cord: Cord vessels: 3 vessel cord. Cord insertion: placental insertion: normal. Amniotic fluid: Amount of AF: normal. Biometry Biometry BPD 89.5 mm 56% 36w 2d Hadlock OFD 109.2 mm 16% 32w 5d Nicolaides HC 318.4 mm 12% 35w 6d Hadlock AC 309.8 mm 20% 34w 6d Hadlock Femur 65.1 mm 2% 33w 4d Hadlock Cerebellum tr 50.7 mm >99% Nicolaides Humerus 56.0 mm 4% 33w 0d Tse EFW 2,514 g 18% Mcknight Calculated by: Hadlock ([id number]) EFW (lb) 5 lb EFW (oz) 9 oz Cephalic index 0.82 75% Chitty HC / AC 1.03 FL / BPD 0.73 FL / HC 0.20 FL / AC 0.21 FHR 132 bpm Head / Face / Neck Dental Detail Representative 7.3 mm Anatomy Head / Brain Head: normal Head: Shape and size Brain: normal Brain: Cerebellum, choroid plexus, cisterna magna, lateral cerebral ventricles, midline falx and cavum septi pellucidi Face / Neck / Spine Face: normal Face: Upper lip Neck: normal Neck: No neck masses seen Spine: normal Spine: Cervical, thoracic, lumbar and sacral spine and overlying soft tissue Thorax / Heart / Great Vessels Thorax: normal Thorax: No thoracic abnormalities detected Situs: normal 4-chamber view: normal LVOT: normal RVOT: normal Abdomen Abdom. wall: see comments Stomach: normal Stomach: Presence, size and situs Urinary Tract / Genitals Rt kidney: normal Lt kidney: normal Bladder: normal Bladder: Size and location Gender: male Wants to know gender: yes Genitals: normal Genitals: Normal appearing genitalia Extremities / Bony Structures Upper extrem.: normal Upper extrem.: Both upper extremities are seen and appear normal Lower extrem.: normal Lower extrem.: Both lower extremities are seen and appear normal Lt foot: suboptimally visualized Maternal Structures Uterus / Cervix Uterus: appears normal Cervix: appears normal Ovaries / Tubes / Adnexa Rt ovary: Appears normal Rt ovary D1 2.8 cm Rt ovary D2 2.1 cm Rt ovary D3 1.8 cm Rt ovary mean 2.2 cm Rt ovary Vol. 5.3 cm? Lt ovary: appears normal Lt ovary D1 2.4 cm Lt ovary D2 2.1 cm Lt ovary D3 1.6 cm Lt ovary mean 2.0 cm Lt ovary Vol. 4.3 cm? Method ======== Voluson E10, Transabdominal ultrasound examination. Sufficient. Impression [id number] Obstetrical ultrasound with and maternal evaluation This is a reynolds gestation. Biometry is consistent with menstrual dating. The abdominal wall appears normal, but the abdominal cord insertion was poorly seen. Anatomy otherwise appears normal as noted above; however, ultrasound cannot detect all anomalies. There is trunk and extremity movement noted. The amniotic fluid volume appears normal. Follow-up Follow-up as clinically indicated. Pedrito Vinson MD [facility] ORDERABLE S documented in this encounter Visit Diagnoses Diagnosis Encounter for screening for chromosomal anomalies- Primary documented in this encounter Care Teams Dumpling Machine Operator Relationship Specialty Start Date End Date None, Provider PCP - General 01/25/15 07/27/15 documented as of this encounter
--- OUTSIDE RECORDS SUMMARY | 2024-02-25 14:26 | XMS_ITS | Encounter Summary ---
Author Organization [facility] Address [address] [place] [address] Care Team Providers Care Hematology Supervisor Name Role Phone Unknown, Provider Primary Care Provider + [phone] Reason for Referral * (Routine) - Closed Specialty Diagnoses / Procedures Referred By Contsaloni sandhu Referred To Contact Patti Jerry MD [address] [place] [address] Referral ID Status Reason Start Date Expiration Date V isits Requested Visits Authorized [id number] Closed Specialty Services Required 08/03/2015 1 1 Encounter Details Date Type Department Care Team ([facility] st Contact Info) Description 08/03/2015 18:56 EDT - 08/03/2015 21:53 EDT Hospital Encounter [facility] [address] [place], [place] [address] Unknown, Provider, Patti Cardoso MD [address] [facility], [address] [place] [id number] Discharge Disposition: Home or Self Care Social History Tobacco Use Types Packs/Day Years Used Date Smoking Tobacco: Never Assessed Comments Yes Sex and Gender Information Value Date Recorded Sex Assigned at Not on file Gender Identity Not on file Sexual Orientation Not on file documented as of this encounter Last Filed Vital Signs Vital Sign Reading Time Taken Comments Blood Pressure 121/68 08/03/2015 1915 EDT Pulse - - Temperature 37 ??C (98.6 ??F) 08/03/20151914 EDT Respiratory Rate 20 08/03/20151914 EDT Oxygen Saturation - - Inhaled Oxygen Concentration - - Weight - - Height - - Body Mass Index - - documented in this encounter Medications at Time [...] Take 40 mg by mouth daily. From [facility] in [place] PNV NO.122/IRON/FOLIC ACID ( MULTI ORAL) Take by mouth. documented as of this encounter Discharge Disposition Disposition Code Departure Means Destination Home or Self Care documented in this encounter Progress Notes * Patti Jerry MD - 08/03/20152004 EDT L&D Triage Note C/C: r/o labor Erin Albert Esparza is a 24 y.o. @ 39w5d by a 6+5wk U/S HPI: Has been efren for about 2 weeks, though seems like ctx picked up somewhat today. She thinks they are q4min. Can still talk through them. No LOF or VB. Good FM. Otherwise well. Drove 2h toget here. Last week had cervix checked at [place] and was 3cm. c/b Asthma with rare inhaler use, depression, opiate addiction on methadone through [facility], smoking, chlamydia treated during with neg MATT. O: BP 121/68 mmHg Temp(Src) 37 ??C (98.6 ??F) (Tympanic) Resp 20 FHT: 130 baseline, mod variability, + accels, no decels; Category I tracing [place]: ctx q2-5min SVE: 3/80/0, cephalic by sutures A/P: Erin Esparza is a 24 y.o. @ 39w5d presenting with ctx for r/o labor. Category Itracing. Cervix unchanged from reported exam at [place] and patient appears quite comfortable, but given frequency of ctx, will observe for 2 hours. If unchanged cervix, will send home. Discussed with Drs. Radha Garza and Maria Esther Jerry MD 08/03/2015 20:05 Addendum: Rechecked pt 2h later, and cervix is unchanged. Still feeling mild ctx q4min, though patient still appears comfortable. Discussed that early labor can go on for a long time. Discharged homewith labor precautions and encouraged patient to call in with any concerns. Discussed with Drs. Garza and Alvarado Jerry MD 08/04/2015 0:25 Obstetrics & Gynecology, PGY-1 Pager [phone] * Moraima Du RN - 08/03/20151945 EDT 1919 - Assume pt care // 1944 - MD Jerry at bedside // VE 3/80/0 cephalic // no change from cervical change from [place] check several days ago / Will recheck in 2 hours to assess cervical change / Reactive NST, okay to remove from monitor and ambulate on unit 2144 - Recheck cervix // VE 3/80/0 // Wl dc home // Questions asked and answered / explained lengthof early labor * Hollie Du RN - 08/03/2015 191 EDT 1900 pt here to rule out labor. Pt reports she has been efren for a week and today is her duedate, so she came in to be checked. Contractions are worse. 6/10 pain both lower abdomin and back. No AMBROSE, Some show. + fm. 1919 report to [place] [facility] documented in this encounter Plan of Treatment Scheduled Referrals Name Type Priority Associated Diagnoses Order Schedule PROVIDER FOLLOW-UP INSTRUCTIONS Outpatient Referral Routine Ordered: 08/03/2015 documented as of this encounter Visit Diagnoses Not on filedocumented in this encounter Orders Diet Count Last Ordered Date First Orde red Date DISCHARGE DIET 2 08/03/2015 Nursing Count Last Ordered Date First Orde red Date BATHING INSTRUCTIONS 1 08/03/2015 Transfer Count Last Ordered Date First Orde red Date NOTIFY PPS OF DISCHARGE COMPLETE 1 08/03/19 16 Discharge Count Last Ordered Date First Orde red Date DISCHARGE PATIENT 1 08/03/2015 Legal Count Last Ordered Date First Orde red Date MISCELLANEOUS DISCHARGE INSTRUCTIONS 1 07/18 documented in this encounter Care Teams Hematology Supervisor Relationship Specialty Start Date End Date Unknown, Provider, PCP - General 07/28/15 documented as of this encounter
--- OUTSIDE RECORDS SUMMARY | 2024-02-25 14:26 | XMS_ITS | Encounter Summary ---
Author Organization [facility] Address [address] [place] [address] Care Team Providers Care Metal Checker Name Role Phone Unknown, Provider Primary Care Provider + [phone] Reason for Visit * Reason Onset Date Comments Post-Delivery 08/22/2015 Called to check in on pt delivery status Encounter Details Date Type Department Care Team (Late st Contact Info) Description 08/22/2015 Telephone [facility] OBGYN Services - [facility] [address] [place], [place] [address] Blessing Phan, RN Post-Delivery (Called to check in on pt delivery status ) Social History Tobacco Use Types Packs/Day Years Used Date Smoking Tobacco: Never Assessed Comments Yes Sex and Gender Information Value Date Recorded Sex Assigned at Not on file Gender Identity Not on file Sexual Orientation Not on file documented as of this encounter Miscellaneous Notes * Telephone Encounter - Blessing Phan - 08/22/2015 1411 EDT Called pt to check in re: /schedule induction. Pt no showed appointment on 08/04. Pt reported delivering on 08/03 in [place]. Offered pt to schedule PPV. She did not want to make one at this time. Stated she will call to make an appt for end of August. documented in this encounter Plan of Treatment Not on file documented as of this encounter Visit Diagnoses Not on filedocumented in this encounter Care Teams Metal Checker Relationship Specialty Start Date End Date Unknown, Provider, PCP - General 07/28/15 documented as of this encounter
--- OUTSIDE RECORDS SUMMARY | 2024-02-25 14:26 | XMS_ITS | Encounter Summary ---
Author Organization [facility] Address [address] [place] [address] Care Team Providers Care Assembler Fitter Name Role Phone Jerica Lomax PHARMACY SALES ASSISTANT Primary Care Provider + [phone] Encounter Details Date Type Department Care Team (Late st Contact Info) Description 01/20/2015 Results Only [facility] [phone] Dominique Moreno MD [address] [place] [address] [address] [place] [address] Social History Tobacco Use Types Packs/Day Years [...] Diagnosis Comments PAP TEST- RESULT ONLY Routine 01/20/2015 0:00 EDT documented in this encounter Results * PAP TEST- RESULT ONLY (01/20/2015 0:00 EDT) Pathology Report: CYTOPATHOLOGY REPORT Reports generated via electronic interface contain original data; however they are lacking the format of the original report. Caution should be taken when reading/interpreti ng unformatted reports. Name: ? VAISHALI ESPARZA ? Accession #: ? [id number] : ? 1990 (Age: 24) ??F ?Collect Date: ? 01/20/2015 Location: ? [facility] ? Receive Date: ? 01/21/2015 Provider: ?DOMINIQUE MORENO MD Copy to: ? Specimen/Source: ?Pap Test, Cervix/Endocervix, ThinPrep Imaging System with manual evaluation Last Menstrual Period: ? 10/01 Menstrual/Pregnanc y Status: ? Other: ? Additional clinical information: WNL 08/25/08, 07/07/12 ? SPECIMEN ADEQUACY ? Satisfactory for Evaluation - transformation zone component absent GENERAL CATEGORIZATION ? Negative for Intraepithelial Lesion or Malignancy INTERPRETATION ? 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 ? Document reviewed and electronically signed by: ? FRNACINE Aaron(ASCP) ? Report Date: ??01/25/2015 16:29 End of Report [facility] 01/20/2015 01/21/2015 Dominique Moreno MD PATHOLOGY ORDERABLES Performing Organization Address City/State/[facility] Co de Phone Number [facility] [address] [place] [address] documented in this encounter Visit Diagnoses Not on filedocumented in this encounter Care Teams Assembler Fitter Relationship Specialty Start Date End Date Jerica Lmoax, PHARMACY SALES ASSISTANT [address] [place] [phone] PCP - General 01/20/15 01/24/15 documented as of this encounter
--- OUTSIDE RECORDS SUMMARY | 2024-02-25 14:26 | XMS_ITS | Encounter Summary ---
Author Organization [facility] Address [address] [place] [address] Care Team Providers Care Microphone Operator Name Role Phone Unknown, Provider Primary Care Provider + [phone] Reason for Visit * Reason Comments Routine Visit Encounter Details Date Type Department Care Team (Late st Contact Info) Description 07/29/2015 9:45 EST Routine [facility] - [facility] [place] [address] [place] [id number] Unknown, Provider, Bernice Rodriguez MD GA: 39w0d Social History Tobacco Use Types Packs/Day Years Used Date Smoking Tobacco: Never Assessed Comments Yes Sex and Gender Information Value Date Recorded Sex Assigned at Not on file Gender Identity Not on file Sexual Orientation Not on file documented as of this encounter Last Filed Vital Signs Vital Sign Reading Time Taken Comments Blood Pressure 112/64 07/29/2015 1007 EST Pulse - - Temperature - - Respiratory Rate - - Oxygen Saturation - - Inhaled Oxygen Concentration - - Weight 61.7 kg (136 lb) 07/29/2015 1007 EST Height 160 cm (5' 2.99) 07/29/2015 1007 EST Body Mass Index 24.1 07/29/2015 1007 EST documented in this encounter Progress Notes * Yanelis Mcknight MD - 08/01/2015 0758 EDT Attestation statement: I discussed the patient with the resident/fellow at the time of the visit. Iagree with the findings and the plan of care documented in the resident's/fellow's note. Yanelis Mcknight MD 08/01/2015 7:58 * Bernice Rodriguez MD - 07/30/2015 1339 EST R4 Antepartum [facility] Clinic Note CC: Erin Esparza is a 24 y.o. @ 39w0d by 5+6 wk US Subjective: Patient states that she's doing well. Denies cx, LOF or VB. +FM. Patient desires to have her cervix checked. Objective: Vitals: BP: 112/64 mmHg Height: 160 cm (62.99) Weight : 61.689 kg (136 lb) BMI: 24.148 Fundal Height (cm): 33 cm Heart Rate: 130 Movement: Present Dilation: 1 Effacement (%): 30 Station: Ballotable Assessment/Plan: Erin Esparza is a 24 y.o. @ 39w0d by 5+6 wk US Asthma affecting , antepartum Doing well. Rare inhaler use. Depression Mood stable. No SI/HI. Opiate addiction Stable on 40 mg of Methadone. Tobacco smoking affecting , antepartum Patient still smoking, ~5cigs/day. 36+3: ceph, JOSE ELIAS wnl, anterior placenta, EFW 2514g (18%ile). Supervision of high-risk Patient doing well. Requesting her cervix to be checked. GBS neg. RTC [address] Mcknight. Bernice Rodriguez MD 07/30/2015 13:39 documented in this encounter Miscellaneous Notes * Assessment & Plan Note - Bernice Rodriguez MD - 07/30/2015 1671 ESTAssociated Problem(s): Supervision of high-risk Patient doing well. Requesting her cervix to be checked. GBS neg. * Assessment & Plan Note - Bernice Rodriguez MD - 07/30/2015 1323 ESTAssociated Problem(s): Tobacco smoking affecting , antepartum Patient still smoking, ~5cigs/day. 36+3: ceph, JOSE ELIAS wnl, anterior placenta, EFW 2514g (18%ile). * Assessment & Plan Note - Bernice Rodriguez MD - 07/30/2015 1320 ESTAssociated Problem(s): Opiate addiction ([facility]) Stable on 40 mg of Methadone. * Assessment & Plan Note - Bernice Rodriguez MD - 07/30/2015 1320 ESTAssociated Problem(s): Depression Mood stable. No SI/HI. * Assessment & Plan Note - Bernice Rodriguez MD - 07/30/2015 1318 ESTAssociated Problem(s): Asthma affecting , antepartum Doing well. Rare inhaler use. documented in this encounter Plan of Treatment Not on file documented as of this encounter Visit Diagnoses Diagnosis Supervision of high-risk , third trimester- Primary documented in this encounter Care Teams Microphone Operator Relationship Specialty Start Date End Date Unknown, Provider, PCP - General 07/28/15 documented as of this encounter
--- OUTSIDE RECORDS SUMMARY | 2024-02-25 14:26 | XMS_ITS | Encounter Summary ---
Author Organization [facility] Address [address] [place] [address] Care Team Providers Care Lead Systems Analyst Name Role Phone None, Provider Primary Care Provider Unavailabl e Reason for Visit * Reason Onset Date Comments Appointment Related 07/21/2015 No showed AP V on 07.21.15 Encounter Details Date Type Department Care Team (Late st Contact Info) Description 07/21/2015 Telephone [facility] - [facility] [address] [place] [address] Dalton, Lora Figueroa MD [address] [place] [address] Appointment Related (No showed APV on 07.21.15) Social History Tobacco Use Types Packs/Day Years Used Date Smoking Tobacco: Never Assessed Comments Yes Sex and Gender Information Value Date Recorded Sex Assigned at Not on file Gender Identity Not on file Sexual Orientation Not on file documented as of this encounter Miscellaneous Notes * Telephone Encounter - Reina Banegas - 07/21/2015 1723 EST No showed APV with Dr. Hoffman on 07.21.15. Left message reminding PT of appointment scheduled on Saturday, 07.29.15 @ 9:45 am. Encouraged PT to call with any questions or concerns. Reina Banegas documented in this encounter Plan of Treatment Not on file documented as of this encounter Visit Diagnoses Not on filedocumented in this encounter Care Teams Lead Systems Analyst Relationship Specialty Start Date End Date None, Provider PCP - General 01/25/15 07/27/15 documented as of this encounter
[2024-02-25 15:17] LABS: COVID-19 PCR Negative (Negative); Influenza A PCR Negative (Negative); Influenza B PCR Negative (Negative); RSV PCR Negative (Negative)
[2024-02-25 15:20] LABS: Source Nasopharynx
== END 2024-02-25 15:32 | disposition left against medical advice (07) ==
PROVIDERS: Emergency Medicine; PCP Family Medicine
DX: Z53.21 Procedure and treatment not carried out due to patient leaving prior to being seen by health care provider (principal)
CPT/HCPCS: 87637; 93005; 93010

== ENCOUNTER 2024-02-26 07:56 | Emergency (ER) | payer MEDICAID, SELFPAY ==
[2024-02-26 07:59] VITALS: BP 128/86; PULSE 75; RESP 16; TEMP 36.3; O2SAT 96
--- NOTE | 2024-02-26 08:10 | ED.GENADUL_ITS ---
Discharge Plan Disposition Patient Disposition: Home Condition: Stable Discharge Details Clinical Impression: Cough Primary Care Provider: Kike Blanco ED Provider: Jaret Ponce Home Meds and New Rx's Prescriptions: New albuterol sulfate 90 mcg/actuation HFA aerosol inhaler 2 puff inhalation Q6H PRN (Reason: shortness of breath or wheezing) Qty: 6.7 0RF guaifenesin 200 mg tablet 200 mg PO Q4H PRN (Reason: congestion) Qty: 7 0RF No Action methylphenidate HCl 20 mg tablet 20 mg PO DAILY Patient Comments: TAKE 1 TABLET BY MOUTH THREE TIMES DAILY DIRECTED lamotrigine 100 mg tablet 100 mg PO DAILY Patient Comments: TAKE 1 TABLET BY MOUTH DAILY quetiapine 50 mg tablet 50 mg PO QHS Patient Comments: TAKE 1 TABLET BY MOUTH EVERY NIGHT AT BEDTIME lamotrigine 25 mg tablet 25 mg PO DAILY Patient Comments: TAKE ONE TABLET BY MOUTH EVERY DAY, TAKE WITH 100MG TABLET EACH EVENING quetiapine 25 mg tablet 25 mg PO DAILY Patient Comments: TAKE ONE TABLET BY MOUTH EVERY NIGHT AT BEDTIME , TAKE WITH 50MG TABLET AT NIGHT methadone [Methadose] 10 mg/mL concentrate 170 mg PO DAILY Discharge Instructions Instructions: Cough, Adult ED Additional Instructions: Please help with your primary care physician. Please return to the emergency department for any worsening symptoms HPI General Date/Time Provider Initiated Documentation: 02/26/24 07:58 . HPI Narrative: 33-year-old female history of asthma presents with cough chest congestion and nasal congestion. Presented to the emergency department yesterday but left before being seen. Had COVID swab RSV and influenza swab performed before she left. Has returned requesting results. Related Data Home Medications ?Medication ?Instructions ?Recorded ?Confirmed methylphenidate HCl 20 mg tablet 20 mg PO DAILY 09/07/20 02/26/24 lamotrigine 100 mg tablet 100 mg PO DAILY 08/31/23 02/26/24 quetiapine 50 mg tablet 50 mg PO QHS 08/31/23 02/26/24 lamotrigine 25 mg tablet 25 mg PO DAILY 12/30/23 02/26/24 quetiapine 25 mg tablet 25 mg PO DAILY 12/30/23 02/26/24 methadone 10 mg/mL oral 170 mg PO DAILY 02/07/24 02/26/24 concentrate (Methadose) albuterol sulfate 90 mcg/actuation 2 puff inhalation Q6H PRN 02/26/24 aerosol inhaler shortness of breath or wheezing #6.7 grams guaifenesin 200 mg tablet 200 mg PO Q4H PRN congestion #7 02/26/24 tabs Previous Rx's ?Medication ?Instructions ?Recorded albuterol sulfate 90 mcg/actuation 2 puff inhalation Q6H PRN 02/26/24 aerosol inhaler shortness of breath or wheezing #6.7 grams guaifenesin 200 mg tablet 200 mg PO Q4H PRN congestion #7 02/26/24 tabs Allergies Allergy/AdvReac Type Severity Reaction Status Date / Time clindamycin Allergy Severe Other (See Verified 02/26/24 08:03 Comment) gabapentin Allergy Swelling/Ed Verified 02/26/24 08:03 shoaib General Stated Complaint: RespSymp ISAAC: 3 Exam Narrative Exam Narrative: Alert interactive no acute distress Moist mucous membranes tolerating secretions Speaking full sentences normal voice Lungs clear bilaterally no wheezes rales or rhonchi appreciated Normal heart sounds no murmurs rubs or gallop Alert interactive moving all extremities ambulatory without assistance Course Vital Signs Vital signs: Vital Signs Temperature 36.3 C L 02/26/24 07:59 Pulse 75 02/26/24 07:59 Respiratory Rate 16 02/26/24 07:59 Blood Pressure 128/86 02/26/24 07:59 Pulse Oximetry 96 02/26/24 07:59 Temperature 36.3 C L 02/26/24 07:59 Temperature Source Temporal Artery Scan 02/26/24 07:59 Pulse 75 02/26/24 07:59 Respiratory Rate 16 02/26/24 07:59 Respiratory Effort Normal, Non-Labored 02/26/24 08:03 Blood Pressure 128/86 02/26/24 07:59 Pulse Oximetry 96 02/26/24 07:59 Oxygen Delivery Method Room Air 02/26/24 07:59 Oxygen Flow Rate 0 02/26/24 07:59 Medical Decision Making 33-year-old female presents with cough chest congestion nasal congestion. Afebrile nontoxic hemodynamically stable nontachycardic nontachypneic nonhypoxic. Lungs clear bilaterally. Flu COVID RSV negative from yesterday. High clinical special for bronchitis versus viral respiratory illness versus mild asthma exacerbation lower suspicion for bacterial pneumonia pneumothorax ACS PE or aortic pathology. Given well-appearing will prescribe dexamethasone here in department and prescribed albuterol inhaler and decongestant for home. Home care instructions and strict return precautions given for any worsening symptoms Quality:SDOH Health Related Social Needs: No Data to Display PFSH All Active Problems (Updated 02/26/24 @ 08:13 by Jaret Ponce MD) Cough (Acute) Puncture wound of right foot (Acute) Left wrist sprain (Acute) Right ankle sprain (Acute) Sprain of left shoulder (Acute) Medical History Narcotic abuse in remission Surgical History History of bilateral tubal ligation Social History Smoking/Tobacco Use Status: Current every day Tobacco Type: cigarettes Smoking risk assessment performed?: Yes Alcohol Intake: never Drug use: Never Substance use type: does not use Housing: house Do you feel safe at home: Yes Do you feel safe in your relationship?: Yes
== END 2024-02-26 08:29 | disposition home or self-care (01) ==
PROVIDERS: Emergency Provider Emergency Medicine; PCP Family Medicine
DX: R05.9 Cough, unspecified (principal); F17.210 Nicotine dependence, cigarettes, uncomplicated
CPT/HCPCS: 99282

== ENCOUNTER 2024-07-19 19:57 | Emergency (ER) | payer MEDICAID, SELFPAY ==
[2024-07-19 19:59] VITALS: BP 167/92; PULSE 89; RESP 22; TEMP 36.5; O2SAT 98
--- NOTE | 2024-07-19 20:05 | ED.GENADUL_ITS ---
Discharge Plan Disposition Patient Disposition: Home Condition: Stable Discharge Details Clinical Impression: Acute otitis media, left Primary Care Provider: Kike Blanco ED Provider: Madeline Santos Home Meds and New Rx's Prescriptions: New amoxicillin-pot clavulanate 875-125 mg tablet 1 tab PO BID Qty: 10 0RF No Action methylphenidate HCl 20 mg tablet 20 mg PO DAILY Patient Comments: TAKE 1 TABLET BY MOUTH THREE TIMES DAILY DIRECTED lamotrigine 100 mg tablet 100 mg PO DAILY Patient Comments: TAKE 1 TABLET BY MOUTH DAILY quetiapine 50 mg tablet 50 mg PO QHS Patient Comments: TAKE 1 TABLET BY MOUTH EVERY NIGHT AT BEDTIME lamotrigine 25 mg tablet 25 mg PO DAILY Patient Comments: TAKE ONE TABLET BY MOUTH EVERY DAY, TAKE WITH 100MG TABLET EACH EVENING quetiapine 25 mg tablet 25 mg PO DAILY Patient Comments: TAKE ONE TABLET BY MOUTH EVERY NIGHT AT BEDTIME , TAKE WITH 50MG TABLET AT NIGHT methadone [Methadose] 10 mg/mL concentrate 170 mg PO DAILY Discharge Instructions Instructions: Ear Infections in Adults (DC) Additional Instructions: Please have your ears rechecked if you are not feeling significantly better in the next 72 hours. You may go to your primary care provider, urgent care, or emergency department. Please take the Augmentin for the full course as prescribed. This may cause antibiotic associated diarrhea, I recommend taking it with activity a yogurt or probiotic capsules available at the pharmacy. For pain you may use Tylenol 650 mg every 6 hours or ibuprofen 600 mg every 8 hours. Heat or ice may be helpful for pain control. Return to emergency care if you develop new fevers, severe headache, protrusion of the ear, 1sti,, vision changes/confusion, or if you are very worried and need to be rechecked again immediately. Referrals: Kike Blanco [Primary Care Provider] - [facility] General Date/Time Provider Initiated Documentation: 07/19/24 20:04 . [facility] Narrative: Erin is a 33 year old female who presents to the emergency department today for evaluation of left ear pain. She reports this started approximately 4 hours prior to arrival. She is not taking any medications for it. She denies associated fever/chills, unusual headache, vision changes, congestion, sore thro at, cough, other viral symptoms. Denies history of frequent AOM. Denies significant past medical history or opioid use history, though is taking methadone daily. Physical exam remarkable for uncomfortable patient who is clutching her left ear. Left TM bulging and erythematous, no perforation noted. No drainage in ear canal. No protrusion of the ear or pain with palpation of mastoid. No cerv ical or submandibular lymphadenopathy. Moist mucous membranes. Easy work of breathing, able to speak in full sentences. Full range of motion of neck. History and presentation consistent with AOM, no signs of complication such as sepsis or deep space infection at this time requiring blood work or diagnostic imaging. While in the emergency department, Erin received ibuprofen for discomfort, a heating pad, and first dose of Augmentin. Reviewed discharge instructions with patient, including symptomatic management and red flags indicating need for return to emergency care Related Data Home Medications ?Medication ?Instructions ?Recorded ?Confirmed methylphenidate HCl 20 mg tablet 20 mg PO DAILY 09/07/20 07/19/24 lamotrigine 100 mg tablet 100 mg PO DAILY 08/31/23 07/19/24 quetiapine 50 mg tablet 50 mg PO QHS 08/31/23 07/19/24 lamotrigine 25 mg tablet 25 mg PO DAILY 12/30/23 07/19/24 quetiapine 25 mg tablet 25 mg PO DAILY 12/30/23 07/19/24 methadone 10 mg/mL oral 170 mg PO DAILY 02/07/24 02/26/24 concentrate (Methadose) amoxicillin 875 mg-potassium 1 tab PO BID #10 tabs 07/19/24 clavulanate 125 mg tablet Previous Rx's ?Medication ?Instructions ?Recorded amoxicillin 875 mg-potassium 1 tab PO BID #10 tabs 07/19/24 clavulanate 125 mg tablet Allergies Allergy/AdvReac Type Severity Reaction Status Date / Time clindamycin Allergy Severe Other (See Verified 07/19/24 20:02 Comment) gabapentin Allergy Swelling/Ed Verified 07/19/24 20:02 shoaib General Stated Complaint: EarProblem ISAAC: 4 Review of Systems Narrative: See HPI Exam Const General: cooperative and anxious Nutritional Appearance: average body habitus Orientation: alert and oriented x3 HENMT Head: normal to inspection Ears: hearing grossly normal bilaterally, external ears normal, TM normal on the right, EAC's normal and TM abnormal (L TM) bulging, erythematous and with fluid behind the TM General nose exam: external nose normal Face and sinus: normal facial exam Mouth: oral mucosae normal and moist mucous membranes Neck Neck: normal visual inspection, full ROM and no lymphadenopathy Resp Effort & Inspection: normal respiratory effort and able to speak in complete sentences Neuro General: patient alert, patient oriented x3, tone normal and moves all extremit ies Cranial Nerves: PERRL and facial strength normal Cognition: normal cognition Speech: speech normal Course Vital Signs Vital signs: Vital Signs Temperature 36.5 C 07/19/24 19:59 Pulse 89 07/19/24 19:59 Respiratory Rate 22 07/19/24 19:59 Blood Pressure 167/92 H 07/19/24 19:59 Pulse Oximetry 98 07/19/24 19:59 Temperature 36.5 C 07/19/24 19:59 Temperature Source Oral 07/19/24 19:59 Pulse 89 07/19/24 19:59 Respiratory Rate 22 07/19/24 19:59 Blood Pressure 167/92 H 07/19/24 19:59 Blood Pressure Position Sitting 07/19/24 19:59 Pulse Oximetry 98 07/19/24 19:59 Oxygen Delivery Method Room Air 07/19/24 19:59 Oxygen Flow Rate 0 07/19/24 19:59 Pain Level 10 07/19/24 20:04 Medical Decision Making Quality:SDOH Health Related Social Needs: No Data to Display PFSH All Active Problems (Updated 07/19/24 @ 20:12 by Madeline Hargrove) Acute otitis media, left (Acute) Left wrist sprain (Acute) Right ankle sprain (Acute) Sprain of left shoulder (Acute) Medical History Narcotic abuse in remission Surgical History History of bilateral tubal ligation Social History Smoking/Tobacco Use Status: Current every day Tobacco Type: cigarettes Smoking risk assessment performed?: Yes Alcohol Intake: never Drug use: Never Substance use type: does not use Housing: house Do you feel safe at home: Yes Do you feel safe in your relationship?: Yes
[2024-07-19] MEDS: Ibuprofen 600 MG TAB PO (20:08)
[2024-07-19] MEDS: Amox. 875/Clav. 125, 2 TABS/BTL 1 TAB PO (20:17)
[2024-07-19] MEDS: Amoxicillin 875/Clav. 125 TAB PO (20:17)
== END 2024-07-19 20:20 | disposition home or self-care (01) ==
PROVIDERS: Emergency Provider Nurse Practitioner Family; PCP Family Medicine
DX: H66.92 Otitis media, unspecified, left ear (principal)
CPT/HCPCS: 99283